=== PATIENT | female | born 1955 | race African-American/Black ===

== ENCOUNTER 2016-05-27 13:18 | Emergency (ER) | payer SELFPAY ==
[~2016-05-27] VITALS: Ht 162.6 cm; Wt 70.3 kg
[~2016-05-27 13:18] MED LIST: AML5T PO; ASPI-231 PO; CARV6.2551 PO; ENAL20TA70 PO; FERR325T PO; METF-312 PO; SIMV10TA73 PO
[2016-05-27 13:36] VITALS: BP 122/68
== END 2016-05-27 14:26 | disposition home or self-care (01) ==
LOC: ER 13:24
DX: J20.9 Acute bronchitis, unspecified (principal); E11.9 Type 2 diabetes mellitus without complications; I10 Essential (primary) hypertension; F17.210 Nicotine dependence, cigarettes, uncomplicated
CPT/HCPCS: 71020; 82962

== ENCOUNTER 2017-12-22 19:17 | Emergency (ER) | payer SELFPAY ==
[~2017-12-22] VITALS: Ht 162.6 cm; Wt 72.6 kg
[~2017-12-22 19:17] MED LIST changes: +FERR-20 PO; -FERR325T PO; -METF-312 PO; +METF-370 PO
[2017-12-22 21:43] LABS: Albumin 3.4 g/dL (3.4-5.0); BUN/Creatinine Ratio 16.4; Calcium 9.5 mg/dL (8.5-10.1); Potassium 4.2 mmol/L (3.5-5.1)
[2017-12-22 21:45] LABS: Bilirubin, Total 0.1 mg/dL (0.2-1.0); Total Protein 7.6 g/dL (6.4-8.2)
[2017-12-22 22:38] LABS: Basophils # (auto) 0 uL; Eosinophils # (auto) 0.1 uL; Lymphocytes # (auto) 3.3 uL; Monocytes # (auto) 0.5 uL; Nucleated Red Blood Cells % 0.1 %
[2017-12-22 22:40] LABS: Basophils % (auto) 0.3 % (0.0-2.0); Eosinophils % (auto) 1.1 % (0.0-7.0); Hematocrit 41.5 % (36.0-46.0); Hemoglobin 13.2 g/dL (12.2-16.2); Lymphocytes % (auto) 48.3 % (10.0-50.0); Mean Corpuscular Hemoglobin 25.6 pg (28.0-32.0); Mean Corpuscular Hgb Conc. 31.8 g/dL (32.0-36.0); Mean Corpuscular Volume 80.5 fL (80.0-100.0); Monocytes % (auto) 6.9 % (0.0-12.0); Neutrophils % (auto) 43.4 % (37.0-80.0); Platelet Count (auto) 202 10^3/uL (140-450); Red Blood Cells 5.15 10^6/uL (4.0-5.20); Red Cell Distribution Width 14.3 % (11.8-14.3)
[2017-12-23 04:42] VITALS: BP 160/91
== END 2017-12-23 04:43 | disposition home or self-care (01) ==
LOC: ER 19:17
DX: I35.9 Nonrheumatic aortic valve disorder, unspecified (principal); E11.9 Type 2 diabetes mellitus without complications; I10 Essential (primary) hypertension; F17.210 Nicotine dependence, cigarettes, uncomplicated; Z88.0 Allergy status to penicillin
CPT/HCPCS: 36415; 70450; 80053; 85025

== ENCOUNTER 2021-07-04 05:39 | Emergency (ER) | payer OTHER ==
[~2021-07-04] VITALS: Ht 162.6 cm; Wt 67.1 kg
[~2021-07-04 05:39] MED LIST changes: -ASPI-231 PO; +ASPI1TAB20 PO; -ENAL20TA70 PO; +ENAL20TA8 PO; +SIMV10TA2 PO; -SIMV10TA73 PO
[2021-07-04] MEDS: LABETALOL HCL 5 MG/ML 4ML SYRINGE IV ONE ×2 (06:27→06:29)
[2021-07-04 06:44] LABS: Hemoglobin 11.9 g/dL (12.2-16.2); Nucleated Red Blood Cells % 0.1 %; White Blood Cell 5.8 10^3/uL (4.4-10.8)
[2021-07-04 06:45] LABS: Basophils # (auto) 0.1 10 ^3/uL (0-0.2); Basophils % (auto) 1.2 % (0.0-2.0); Eosinophils # (auto) 0 10 ^3/uL (0-0.8); Eosinophils % (auto) 0.8 % (0.0-7.0); Hematocrit 37.2 % (36.0-46.0); Lymphocytes # (auto) 2.1 10 ^3/uL (0.4-5.4); Lymphocytes % (auto) 36.1 % (10.0-50.0); Mean Corpuscular Hemoglobin 25.8 pg (28.0-32.0); Mean Corpuscular Hgb Conc. 32.1 g/dL (32.0-36.0); Mean Corpuscular Volume 80.4 fL (80.0-100.0); Monocytes # (auto) 0.5 10 ^3/uL (0-1.3); Monocytes % (auto) 7.9 % (0.0-12.0); Neutrophils # (auto) 3.2 10 ^3/uL (1.6-8.6); Red Blood Cells 4.63 10^6/uL (4.0-5.20); Red Cell Distribution Width 15.2 % (11.8-14.3)
[2021-07-04 06:55] LABS: Albumin 3.3 g/dL (3.4-5.0); BUN/Creatinine Ratio 16.1; Magnesium 2.3 mg/dL (1.6-2.6); Potassium 4.2 mmol/L (3.5-5.1)
[2021-07-04 07:00] LABS: Bilirubin, Total 0.4 mg/dL (0.2-1.0); Total Protein 7.1 g/dL (6.4-8.2)
[2021-07-04] MEDS ORDERED: LACTATED RINGER'S 1,000 ML IV ONE (09:45)
[2021-07-04] MEDS ORDERED: FUROSEMIDE 20 MG TAB PO ONE (12:00)
[2021-07-04] MEDS ORDERED: ASPirin 81 mg TAB PO ONE (13:15)
[2021-07-04] MEDS ORDERED: MORPHINE SULFATE INJECTION 2 MG/ML SYRG IV ONE (13:15)
[2021-07-04] MEDS ORDERED: MORPHINE SULFATE 4 MG/ML SYR/VIAL IV ONE (13:15)
[2021-07-04] MEDS ORDERED: NITROGLYCERIN 0.4 MG SL TAB SL ONE (13:15)
[2021-07-04] MEDS ORDERED: MORPHINE SULFATE INJECTION 2 MG/ML SYRG IV PRN (13:15)
[2021-07-04] MEDS ORDERED: ONDANSETRON HCL 4 MG/2 ML VIAL IV ONE (13:15)
[2021-07-04] MEDS ORDERED: FURO1TAB33 GT (14:50)
[2021-07-04 20:40] VITALS: BP 143/76
== END 2021-07-04 20:52 | disposition home or self-care (01) ==
LOC: ER 05:39
DX: R07.89 Other chest pain (principal); E11.9 Type 2 diabetes mellitus without complications; I10 Essential (primary) hypertension; F17.200 Nicotine dependence, unspecified, uncomplicated; Z20.822 Contact with and (suspected) exposure to COVID-19
CPT/HCPCS: 36415; 71045; 71275; 80053; 83735; 83880; 84484; 85025; 85379; 87426; 93005; 96361; 96374; 99285; J2270; J2405; J3490

== ENCOUNTER 2021-08-09 08:11 | Emergency (ER) | payer OTHER ==
[~2021-08-09] VITALS: Ht 172.7 cm; Wt 77.1 kg
[~2021-08-09 08:11] MED LIST changes: +FURO1TAB33 GT
[2021-08-09] MEDS ORDERED: NITROGLYCERIN 0.4 MG SL TAB SL ONE ×3 (08:15→08:45)
[2021-08-09] MEDS ORDERED: FUROSEMIDE 40 MG/4 ML VIAL IV ONE (08:45)
[2021-08-09 08:52] LABS: Mean Corpuscular Hgb Conc. 31.1 g/dL (32.0-36.0)
[2021-08-09 08:54] LABS: Hematocrit 37.5 % (36.0-46.0); Hemoglobin 11.6 g/dL (12.2-16.2); Mean Corpuscular Hemoglobin 25.7 pg (28.0-32.0); Mean Corpuscular Volume 82.7 fL (80.0-100.0); Red Blood Cells 4.53 10^6/uL (4.0-5.20); Red Cell Distribution Width 15.5 % (11.8-14.3); White Blood Cell 6.5 10^3/uL (4.4-10.8)
[2021-08-09 08:58] LABS: Band Neutrophils % (manual) 0; Basophils % (manual) 0 (0.0-2.0); Blast Cells 0; Metamyelocytes % 0; Myelocytes % 0; Promyelocytes % 0; Reactive Lymphocytes 0
[2021-08-09 09:00] LABS: Albumin 3.1 g/dL (3.4-5.0); Calcium 8.4 mg/dL (8.5-10.1); Magnesium 1.9 mg/dL (1.6-2.6); Potassium 4.6 mmol/L (3.5-5.1)
[2021-08-09 09:04] LABS: BUN/Creatinine Ratio 12.2; Bilirubin, Total 0.4 mg/dL (0.2-1.0); Total Protein 6.8 g/dL (6.4-8.2)
[2021-08-09 09:17] LABS: Eosinophils % (manual) 1 (0-7); Lymphocytes % (manual) 58 (10.0-50.0); Monocytes % (manual) 5 (0-12)
[2021-08-09 09:28] VITALS: BP 157/87
[2021-08-09 09:41] LABS: Urine Bacteria NONE SEEN /hpf (None Seen); Urine Blood Negative /uL (Negative); Urine Specific Gravity 1.007 (1.001-1.035); Urine WBC 3 /hpf (0 - 5)
[2021-08-09] MEDS ORDERED: FUROSEMIDE 20 MG/2 ML VIAL IV ONE (09:45)
[2021-08-09] MEDS ORDERED: FURO1TAB33 PO (10:16)
== END 2021-08-09 11:26 | disposition home or self-care (01) ==
LOC: EDBD 08:11 → ER 08:11
DX: J81.0 Acute pulmonary edema (principal); E11.9 Type 2 diabetes mellitus without complications; E78.5 Hyperlipidemia, unspecified; I10 Essential (primary) hypertension; F17.200 Nicotine dependence, unspecified, uncomplicated; Z88.0 Allergy status to penicillin; Z20.822 Contact with and (suspected) exposure to COVID-19
CPT/HCPCS: 36415; 36600; 71045; 80053; 81001; 82805; 83735; 83880; 84484; 85007; 85027; 87426; 93005; 94660; 96374; 96376; 99285; J1940

== ENCOUNTER 2021-10-11 16:32 | Emergency (ER) | payer OTHER ==
[~2021-10-11] VITALS: Ht 162.6 cm; Wt 69.4 kg
[~2021-10-11 16:32] MED LIST changes: +FURO1TAB33 PO
[2021-10-11 16:52] VITALS: BP 178/95
[2021-10-11] MEDS ORDERED: cefTRIAXone SOD 1,000 MG VL IM ONE (17:30)
[2021-10-11] MEDS ORDERED: AZIT250T8 PO (17:37)
[2021-10-11] MEDS ORDERED: PROM1SOL4 PO (17:37)
[2021-10-11] MEDS ORDERED: LIDOCAINE 1% HCL (LOCAL ANESTH.) INJ 20ML MDV ONE (17:40)
[2021-10-11] MEDS ORDERED: LIDOCAINE 1% HCL (LOCAL ANESTH.) INJ 20ML MDV IJ ONE (17:45)
== END 2021-10-11 17:47 | disposition home or self-care (01) ==
LOC: ER 16:32
DX: J03.90 Acute tonsillitis, unspecified (principal); E11.9 Type 2 diabetes mellitus without complications; E78.5 Hyperlipidemia, unspecified; I10 Essential (primary) hypertension; F17.210 Nicotine dependence, cigarettes, uncomplicated; Z88.0 Allergy status to penicillin
CPT/HCPCS: 71045; 96372; 99283; J0696; J2001

== ENCOUNTER 2021-10-16 18:39 | Emergency (ER) | payer OTHER ==
[~2021-10-16] VITALS: Ht 162.6 cm; Wt 72.6 kg
[~2021-10-16 18:39] MED LIST changes: +AZIT250T8 PO; +PROM1SOL4 PO
[2021-10-16 20:05] LABS: Basophils # (auto) 0 10 ^3/uL (0-0.2); Basophils % (auto) 0.5 % (0.0-2.0); Eosinophils # (auto) 0 10 ^3/uL (0-0.8); Eosinophils % (auto) 0.4 % (0.0-7.0); Hematocrit 37.4 % (36.0-46.0); Hemoglobin 11.7 g/dL (12.2-16.2); Lymphocytes # (auto) 3.1 10 ^3/uL (0.4-5.4); Mean Corpuscular Hemoglobin 25.3 pg (28.0-32.0); Mean Corpuscular Hgb Conc. 31.3 g/dL (32.0-36.0); Mean Corpuscular Volume 80.6 fL (80.0-100.0); Monocytes # (auto) 0.6 10 ^3/uL (0-1.3); Monocytes % (auto) 10.4 % (0.0-12.0); Neutrophils # (auto) 1.9 10 ^3/uL (1.6-8.6); Neutrophils % (auto) 33.7 % (37.0-80.0); Nucleated Red Blood Cells % 0.2 %; Red Blood Cells 4.64 10^6/uL (4.0-5.20); Red Cell Distribution Width 14.8 % (11.8-14.3); White Blood Cell 5.6 10^3/uL (4.4-10.8)
[2021-10-16 20:27] LABS: Albumin 3.3 g/dL (3.4-5.0); Calcium 8.9 mg/dL (8.5-10.1); Magnesium 2.3 mg/dL (1.6-2.6); Potassium 3.9 mmol/L (3.5-5.1)
[2021-10-16 20:31] LABS: Bilirubin, Total 0.3 mg/dL (0.2-1.0); Total Protein 7.4 g/dL (6.4-8.2)
[2021-10-17 00:26] LABS: Urine Bacteria NONE SEEN /hpf (None Seen); Urine Blood Negative /uL (Negative); Urine Specific Gravity 1.027 (1.001-1.035); Urine WBC 4 /hpf (0 - 5)
[2021-10-17] MEDS ORDERED: CARVEDILOL 3.125 MG TAB PO ONE (05:00)
[2021-10-17] MEDS ORDERED: ZINC220C10 PO (06:04)
[2021-10-17] MEDS ORDERED: ASCO500T11 PO (06:04)
[2021-10-17 06:37] VITALS: BP 146/64
== END 2021-10-17 07:05 | disposition home or self-care (01) ==
LOC: ER 18:39
DX: U07.1 COVID-19 (principal); R07.89 Other chest pain
CPT/HCPCS: 36415; 71045; 80053; 81001; 83735; 83880; 84484; 85025; 93005

== ENCOUNTER 2021-11-13 09:41 | Emergency (ER) | payer OTHER ==
[~2021-11-13] VITALS: Ht 162.6 cm; Wt 72.7 kg
[~2021-11-13 09:41] MED LIST changes: +ASCO500T11 PO; +ZINC220C10 PO
[2021-11-13] MEDS ORDERED: MECL25CH38 PO (10:34)
[2021-11-13 11:23] LABS: Albumin 3.5 g/dL (3.4-5.0); Basophils # (auto) 0.1 10 ^3/uL (0-0.2); Basophils % (auto) 0.7 % (0.0-2.0); Calcium 9.3 mg/dL (8.5-10.1); Eosinophils # (auto) 0.1 10 ^3/uL (0-0.8); Hematocrit 33.9 % (36.0-46.0); Hemoglobin 10.6 g/dL (12.2-16.2); Lymphocytes # (auto) 2.5 10 ^3/uL (0.4-5.4); Lymphocytes % (auto) 29.6 % (10.0-50.0); Mean Corpuscular Hemoglobin 25.4 pg (28.0-32.0); Mean Corpuscular Hgb Conc. 31.3 g/dL (32.0-36.0); Mean Corpuscular Volume 81.1 fL (80.0-100.0); Monocytes # (auto) 0.4 10 ^3/uL (0-1.3); Monocytes % (auto) 5.3 % (0.0-12.0); Neutrophils # (auto) 5.3 10 ^3/uL (1.6-8.6); Neutrophils % (auto) 63.4 % (37.0-80.0); Nucleated Red Blood Cells % 0.1 %; Potassium 4.2 mmol/L (3.5-5.1); Red Blood Cells 4.18 10^6/uL (4.0-5.20); Red Cell Distribution Width 14.9 % (11.8-14.3); White Blood Cell 8.3 10^3/uL (4.4-10.8)
[2021-11-13 11:26] LABS: BUN/Creatinine Ratio 13.9; Bilirubin, Total 0.3 mg/dL (0.2-1.0); Total Protein 7.6 g/dL (6.4-8.2)
[2021-11-13 11:28] LABS: Urine Bacteria FEW /hpf (None Seen); Urine Blood Negative /uL (Negative); Urine Mucus FEW (None Seen); Urine Specific Gravity 1.011 (1.001-1.035); Urine WBC 6 /hpf (0 - 5)
[2021-11-13] MEDS ORDERED: NITR-87 PO (12:57)
[2021-11-13 13:22] VITALS: BP 174/72
== END 2021-11-13 13:29 | disposition home or self-care (01) ==
LOC: ER 09:41
DX: R42 Dizziness and giddiness (principal); I10 Essential (primary) hypertension; E11.9 Type 2 diabetes mellitus without complications; E78.5 Hyperlipidemia, unspecified; F17.210 Nicotine dependence, cigarettes, uncomplicated; Z79.82 Long term (current) use of aspirin; Z79.899 Other long term (current) drug therapy; Z88.0 Allergy status to penicillin; Z91.048 Other nonmedicinal substance allergy status
CPT/HCPCS: 36415; 70450; 80053; 81001; 84484; 85025; 93005

== ENCOUNTER 2022-05-31 21:31 | Emergency (ER) | payer OTHER ==
[~2022-05-31] VITALS: Ht 162.6 cm; Wt 69.1 kg
[~2022-05-31 21:31] MED LIST changes: +MECL25CH38 PO; +NITR-87 PO
[2022-05-31 21:35] VITALS: BP 150/93
[2022-05-31] MEDS ORDERED: FURO1TAB33 PO (22:00)
== END 2022-06-01 00:36 | disposition home or self-care (01) ==
LOC: ER 21:31
DX: I10 Essential (primary) hypertension (principal); Z76.0 Encounter for issue of repeat prescription

== ENCOUNTER 2022-08-19 19:37 | Emergency (ER) | payer OTHER ==
[~2022-08-19] VITALS: Ht 162.6 cm; Wt 65.0 kg
[2022-08-19 21:27] LABS: Basophils # (auto) 0 10 ^3/uL (0-0.2); Basophils % (auto) 0.7 % (0.0-2.0); Eosinophils # (auto) 0.1 10 ^3/uL (0-0.8); Eosinophils % (auto) 1.4 % (0.0-7.0); Hematocrit 37.2 % (36.0-46.0); Hemoglobin 12.1 g/dL (12.2-16.2); Lymphocytes % (auto) 46.8 % (10.0-50.0); Mean Corpuscular Hemoglobin 26.1 pg (28.0-32.0); Mean Corpuscular Hgb Conc. 32.6 g/dL (32.0-36.0); Mean Corpuscular Volume 79.9 fL (80.0-100.0); Monocytes # (auto) 0.5 10 ^3/uL (0-1.3); Monocytes % (auto) 8.1 % (0.0-12.0); Neutrophils # (auto) 2.8 10 ^3/uL (1.6-8.6); Nucleated Red Blood Cells % 0.1 %; Red Blood Cells 4.66 10^6/uL (4.0-5.20); White Blood Cell 6.5 10^3/uL (4.4-10.8)
[2022-08-19 22:01] LABS: INR 0.93 (0.9-1.15); Partial Thromboplastin Time 27.8 sec (24.6-33.4)
[2022-08-19 22:03] LABS: Albumin 3.4 g/dL (3.4-5.0); Calcium 9.3 mg/dL (8.5-10.1); Magnesium 2.4 mg/dL (1.6-2.6); Potassium 4.1 mmol/L (3.5-5.1)
[2022-08-19 22:08] LABS: BUN/Creatinine Ratio 18.4 (10.0-20.0); Bilirubin, Total 0.4 mg/dL (0.2-1.0); Total Protein 7.4 g/dL (6.4-8.2)
[2022-08-20] MEDS ORDERED: ASPirin 81 mg TAB PO ONE (06:30)
[2022-08-20 16:30] VITALS: BP 142/70
== END 2022-08-20 16:53 | disposition admitted as inpatient to this hospital (09) ==
LOC: ER 19:37
DX: I63.81 Other cerebral infarction due to occlusion or stenosis of small artery (principal); R20.0 Anesthesia of skin; E78.5 Hyperlipidemia, unspecified; I11.0 Hypertensive heart disease with heart failure; I50.89 Other heart failure; E11.9 Type 2 diabetes mellitus without complications; Z86.73 Personal history of transient ischemic attack (TIA), and cerebral infarction without residual deficits; Z88.0 Allergy status to penicillin; Z79.899 Other long term (current) drug therapy; Z79.82 Long term (current) use of aspirin; Z87.891 Personal history of nicotine dependence
CPT/HCPCS: 36415; 70450; 70551; 80053; 83735; 83880; 84484; 85025; 85610; 85730; 93005; 99291

== ENCOUNTER 2023-06-14 01:49 | Emergency (ER) | payer OTHER ==
[~2023-06-14] VITALS: Ht 162.6 cm; Wt 80.9 kg
[~2023-06-14 01:49] MED LIST changes: +AZIT-81 PO; -AZIT250T8 PO; +ENAL1TAB48 PO; -ENAL20TA8 PO; -FERR-20 PO; +FERR325T24 PO; +SIMV-268 PO; -SIMV10TA2 PO
[2023-06-14] MEDS ORDERED: BENZ200C64 PO (02:54)
[2023-06-14] MEDS ORDERED: MONT10TA23 PO (02:54)
[2023-06-14] MEDS ORDERED: AZITTAB PO (02:54)
[2023-06-14] MEDS ORDERED: ALBU108A5 IN (02:54)
[2023-06-14] MEDS: IPRATROPIUM BROM 0.5 MG/2.5ML INH SOL NEB ONE (03:11)
[2023-06-14] MEDS: ALBUTEROL SULF 2.5 MG/0.5ML(0.5%) NEB SOLN NEB ONE (03:11)
[2023-06-14] MEDS: guaiFENesin-CODEINE Liq 5 ML UD PO ONE (04:10)
[2023-06-14 05:21] VITALS: BP 137/82; PULSE 79; RESP 18; TEMP 98; O2SAT 96
== END 2023-06-14 05:27 | disposition home or self-care (01) ==
LOC: ER 01:49
DX: J20.9 Acute bronchitis, unspecified (principal); I11.0 Hypertensive heart disease with heart failure; I50.9 Heart failure, unspecified; E11.9 Type 2 diabetes mellitus without complications; E78.5 Hyperlipidemia, unspecified; Z79.899 Other long term (current) drug therapy
CPT/HCPCS: 94640; 99283; J7644

== ENCOUNTER 2023-07-01 01:19 | Inpatient (IN) | payer OTHER ==
[~2023-07-01] VITALS: Ht 162.6 cm; Wt 80.3 kg
[~2023-07-01 01:19] MED LIST changes: +ALBU108A5 IN; +AZITTAB PO; +BENZ200C64 PO; +MONT10TA23 PO
[2023-07-01 02:27] LABS: Eosinophils # (auto) 0.1 10 ^3/uL (0-0.8); Hematocrit 35.4 % (36.0-46.0); Hemoglobin 10.9 g/dL (12.2-16.2); Lymphocytes # (auto) 2.4 10 ^3/uL (0.4-5.4); Mean Corpuscular Hgb Conc. 30.7 g/dL (32.0-36.0); Monocytes # (auto) 0.6 10 ^3/uL (0-1.3); White Blood Cell 6.6 10^3/uL (4.4-10.8)
[2023-07-01 02:29] LABS: Basophils # (auto) 0.1 10 ^3/uL (0-0.2); Basophils % (auto) 0.9 % (0.0-2.0); Mean Corpuscular Hemoglobin 24.3 pg (28.0-32.0); Mean Corpuscular Volume 79.2 fL (80.0-100.0); Monocytes % (auto) 8.6 % (0.0-12.0); Neutrophils # (auto) 3.5 10 ^3/uL (1.6-8.6); Neutrophils % (auto) 53.5 % (37.0-80.0); Nucleated Red Blood Cells % 0.1 %; Red Blood Cells 4.47 10^6/uL (4.0-5.20); Red Cell Distribution Width 15.3 % (11.8-14.3)
[2023-07-01 02:33] VITALS: PULSE 107; O2SAT 94
[2023-07-01 02:45] LABS: Alanine Aminotransferase 15 U/L (7-40); Albumin 4.1 g/dL (3.2-4.8); Alkaline Phosphatase 95 U/L (46-116); Anion Gap 5 (5-15); Aspartate Aminotransferase 21 U/L (13-40); BUN/Creatinine Ratio 12.8 (10.0-20.0); Blood Urea Nitrogen 15 mg/dL (9-23); Calcium 9.4 mg/dL (8.7-10.4); Carbon Dioxide 24 mmol/L (20-30); Chloride 114 mmol/L (98-107); Glucose 159 mg/dL (74-106); Potassium 3.6 mmol/L (3.5-5.1); Sodium 143 mmol/L (136-145)
[2023-07-01 02:46] LABS: Bilirubin, Total 0.3 mg/dL (0.2-1.0)
[2023-07-01 02:48] LABS: INR 0.94 (0.9-1.15); Partial Thromboplastin Time 28.8 SEC (24.5-34.5); Prothrombin Time 9.9 sec (9.3-11.8)
[2023-07-01] MEDS: AMIODARONE BOLUS KIT 100 ML IV ONE (03:02)
[2023-07-01] MEDS: AMIODARONE 450mg/250ml AE 250 ML IV SCH ×2 (03:19→08:35)
[2023-07-01] MEDS ORDERED: NITROGLYCERIN 0.4 MG SL TAB SL PRN ×2 (04:00→04:15)
[2023-07-01] MEDS ORDERED: MORPHINE SULFATE INJ 2 MG/ml SYRG IV PRN ×2 (04:00→04:15)
[2023-07-01] MEDS ORDERED: ONDANSETRON HCL 4 MG/2 ML VIAL IV PRN (04:00)
[2023-07-01] MEDS ORDERED: HYDROcodone-ACET 5/325MG TAB PO PRN (04:00)
[2023-07-01] MEDS ORDERED: DEXTROSE (50%) 50ML SYRG IV PRN (04:15)
[2023-07-01] MEDS: hydrALAZINE HCL 20 MG/ML VL IV PRN (04:29)
[2023-07-01 05:04] LABS: Triglycerides 99 mg/dL (< 150)
[2023-07-01 05:05] LABS: LDL Cholesterol 120 mg/dL (< 100)
[2023-07-01 05:06] LABS: Cholesterol 176 mg/dL (< 200); HDL Cholesterol 43 mg/dL (40-59)
[2023-07-01] MEDS: LORazepam 2MG/ML-1ML VIAL ONE (05:07)
[2023-07-01] MEDS: ENOXAPARIN SOD 40 MG/0.4 ML SYRINGE SC SCH (05:14)
[2023-07-01] MEDS: LORazepam 2MG/ML-1ML VIAL IV ONE (05:15)
[2023-07-01] MEDS ORDERED: SACU1TAB PO (05:29)
[2023-07-01] MEDS ORDERED: POTA8TAB38 PO (05:29)
[2023-07-01] MEDS ORDERED: SIMV20TA20 PO (05:29)
[2023-07-01] MEDS: LISINOPRIL 20 MG TAB PO SCH (05:40)
[2023-07-01] MEDS: IOHEXOL 350 MG/ML 100ML IJ ONE (05:44)
[2023-07-01] MEDS: ACCU-CHEK COMFORT CURVE STRIP VI SCH (05:57)
[2023-07-01] MEDS: InsuLIN REG 1unit/0.01ml Soln (100units/ml) SC SCH (06:06)
[2023-07-01] MEDS ORDERED: IPRATROPIUM BROM 0.5 MG/2.5ML INH SOL NEB PRN (06:15)
[2023-07-01 07:28] VITALS: O2SAT 100
[2023-07-01] MEDS: amLODIPine BESYLATE 5 MG TAB PO SCH (10:00)
[2023-07-01] MEDS ORDERED: ENOXAPARIN SOD 40 MG/0.4 ML SYRINGE SC SCH (10:00)
[2023-07-01] MEDS: ASPirin 81 mg TAB PO SCH (10:11)
[2023-07-01] MEDS: PANTOPRAZOLE 40 MG/10 ML VIAL INJ IV SCH (10:11)
[2023-07-01] MEDS: ACETAMINOPHEN 325 MG TAB PO PRN (17:47)
[2023-07-01 18:18] LABS: Amphetamine Screen, Urine Neg (NEGATIVE); Benzodiazephine Screen, Urine Neg (NEGATIVE)
[2023-07-01 18:19] LABS: Barbiturate Scree,Urine Neg (NEGATIVE); Cannabinoid Screen, Urine Neg (NEGATIVE); Cocaine Screen, Urine Neg (NEGATIVE); Opiate Scree,Urine Neg (NEGATIVE); Phencyclidine Screen, Urine Neg (NEGATIVE)
[2023-07-01 18:23] LABS: Urine Bacteria FEW /hpf (None Seen); Urine Blood Negative /uL (Negative); Urine Clarity Clear (Clear); Urine Color Yellow (Yellow); Urine Protein, UAD Negative (Negative); Urine Specific Gravity 1.036 (1.001-1.035); Urine Urobilinogen Normal (Negative); Urine WBC 13 /hpf (0 - 5); Urine pH 5.5 (5.0-8.0)
[2023-07-01 19:48] VITALS: PULSE 75; RESP 15; O2SAT 100
[2023-07-01] MEDS: ATORVASTATIN 20 MG TAB PO SCH (23:22)
[2023-07-01 23:33] VITALS: BP 134/68; PULSE 77; RESP 19; TEMP 98; O2SAT 97
[2023-07-02] VITALS (7 sets, daily range): BP systolic 115–189; BP diastolic 55–83; PULSE 67–98; RESP 16–20; TEMP 97.7–98.3; O2SAT 92–99
[2023-07-02 06:18] LABS: Basophils # (auto) 0 10 ^3/uL (0-0.2); Basophils % (auto) 0.5 % (0.0-2.0); Eosinophils # (auto) 0.1 10 ^3/uL (0-0.8); Eosinophils % (auto) 1.4 % (0.0-7.0); Hematocrit 32.3 % (36.0-46.0); Hemoglobin 10.1 g/dL (12.2-16.2); Lymphocytes # (auto) 1.6 10 ^3/uL (0.4-5.4); Lymphocytes % (auto) 33.6 % (10.0-50.0); Mean Corpuscular Hgb Conc. 31.3 g/dL (32.0-36.0); Mean Corpuscular Volume 79.8 fL (80.0-100.0); Monocytes # (auto) 0.5 10 ^3/uL (0-1.3); Monocytes % (auto) 10.8 % (0.0-12.0); Neutrophils # (auto) 2.6 10 ^3/uL (1.6-8.6); Neutrophils % (auto) 53.7 % (37.0-80.0); Red Blood Cells 4.05 10^6/uL (4.0-5.20); Red Cell Distribution Width 14.8 % (11.8-14.3); White Blood Cell 4.8 10^3/uL (4.4-10.8)
[2023-07-02 06:28] LABS: Calcium 9.2 mg/dL (8.5-10.1); Chloride 111 mmol/L (98-107); Potassium 3.6 mmol/L (3.5-5.1); Sodium 141 mmol/L (136-145)
[2023-07-02 06:29] LABS: Anion Gap 6 (5-15); Carbon Dioxide 24 mmol/L (20-30)
[2023-07-02 06:34] LABS: BUN/Creatinine Ratio 10.1 (10.0-20.0); Blood Urea Nitrogen 11 mg/dL (9-23); Glucose 141 mg/dL (74-106)
[2023-07-02] MEDS: levoFLOXacin 500MG 100 ML IV ONE (16:33)
[2023-07-02] MEDS ORDERED: PANT40TA57 PO (17:14)
[2023-07-02] MEDS ORDERED: CIPR500T4 PO (17:14)
[2023-07-02] MEDS ORDERED: APIXABAN 5 MG TAB PO SCH (22:00)
[2023-07-02] MEDS ORDERED: CARVEDILOL 3.125 MG TAB PO SCH (22:00)
[2023-07-03] MEDS ORDERED: FUROSEMIDE 40 MG TAB PO SCH (10:00)
== END 2023-07-02 20:30 | disposition home or self-care (01) | DRG 292 ==
LOC: ER 01:19 → TELE 04:04 → TELE-CENTR 04:06 → TELE 04:06 → TELE-CENTR 22:05
PROVIDERS: ADMIT Nurse Practitioner Family; ATTEND Nurse Practitioner Family
DX: I11.0 Hypertensive heart disease with heart failure (principal); I24.89 Other forms of acute ischemic heart disease; N39.0 Urinary tract infection, site not specified; J40 Bronchitis, not specified as acute or chronic; I50.32 Chronic diastolic (congestive) heart failure; I5A Non-ischemic myocardial injury (non-traumatic); K21.9 Gastro-esophageal reflux disease without esophagitis; R00.8 Other abnormalities of heart beat; I49.8 Other specified cardiac arrhythmias; E78.5 Hyperlipidemia, unspecified; E11.9 Type 2 diabetes mellitus without complications; Z88.0 Allergy status to penicillin; Z87.891 Personal history of nicotine dependence; Z79.84 Long term (current) use of oral hypoglycemic drugs; I49.9 Cardiac arrhythmia, unspecified
CPT/HCPCS: 36415; 36600; 71045; 71275; 80048; 80053; 80061; 80307; 81001; 82805; 82962; 83735; 83880; 84443; 84484; 85025; 85379; 85610; 85730; 93005; 93306; 97163; C9113; G0378; J1815; J1956

== ENCOUNTER 2023-08-08 04:40 | Inpatient (IN) | payer OTHER ==
[~2023-08-08] VITALS: Ht 162.6 cm; Wt 76.5 kg
[~2023-08-08 04:40] MED LIST changes: -AML5T PO; -ASCO500T11 PO; -AZIT-81 PO; -AZITTAB PO; -BENZ200C64 PO; +CIPR500T4 PO; -FURO1TAB33 PO; -MECL25CH38 PO; -MONT10TA23 PO; -NITR-87 PO; +PANT40TA57 PO; +POTA8TAB38 PO; -PROM1SOL4 PO; +SACU1TAB PO; -ZINC220C10 PO
[2023-08-08] MEDS ORDERED: BUDESONIDE (INHALATION) 0.5 MG/2 ML NEB NEB ONE (05:15)
[2023-08-08 05:25] LABS: Basophils # (auto) 0 10 ^3/uL (0-0.2); Hemoglobin 11.7 g/dL (12.2-16.2); Mean Corpuscular Hemoglobin 24.6 pg (28.0-32.0); Monocytes # (auto) 0.5 10 ^3/uL (0-1.3)
[2023-08-08 05:28] LABS: Basophils % (auto) 0.4 % (0.0-2.0); Eosinophils # (auto) 0.1 10 ^3/uL (0-0.8); Eosinophils % (auto) 0.9 % (0.0-7.0); Hematocrit 37.9 % (36.0-46.0); Lymphocytes # (auto) 3.6 10 ^3/uL (0.4-5.4); Lymphocytes % (auto) 52.3 % (10.0-50.0); Mean Corpuscular Hgb Conc. 30.8 g/dL (32.0-36.0); Mean Corpuscular Volume 79.8 fL (80.0-100.0); Monocytes % (auto) 6.7 % (0.0-12.0); Neutrophils # (auto) 2.7 10 ^3/uL (1.6-8.6); Neutrophils % (auto) 39.7 % (37.0-80.0); Nucleated Red Blood Cells % 0.3 %; Red Blood Cells 4.75 10^6/uL (4.0-5.20); Red Cell Distribution Width 15.1 % (11.8-14.3); White Blood Cell 6.8 10^3/uL (4.4-10.8)
[2023-08-08] MEDS: ALBUTEROL SULF 2.5 MG/0.5ML(0.5%) NEB SOLN NEB ONE (05:28)
[2023-08-08] MEDS: IPRATROPIUM BROM 0.5 MG/2.5ML INH SOL NEB ONE (05:28)
[2023-08-08 05:36] LABS: Alanine Aminotransferase 14 U/L (7-40); Albumin 4.1 g/dL (3.2-4.8); Alkaline Phosphatase 93 U/L (46-116); Anion Gap 6 (5-15); Aspartate Aminotransferase 15 U/L (13-40); BUN/Creatinine Ratio 15.3 (10.0-20.0); Blood Urea Nitrogen 19 mg/dL (9-23); Calcium 9.5 mg/dL (8.7-10.4); Carbon Dioxide 24 mmol/L (20-30); Chloride 111 mmol/L (98-107); Glucose 190 mg/dL (74-106); Magnesium 2.1 mg/dL (1.6-2.6); Potassium 3.9 mmol/L (3.5-5.1); Sodium 141 mmol/L (136-145)
[2023-08-08 05:37] LABS: Bilirubin, Total 0.4 mg/dL (0.2-1.0)
[2023-08-08] MEDS: ASPirin 81 mg TAB PO ONE (06:17)
[2023-08-08 08:30] VITALS: PULSE 87; RESP 22; O2SAT 97
[2023-08-08] MEDS: FUROSEMIDE 20 MG/2 ML VIAL IV ONE (09:56)
[2023-08-08] MEDS: ENOXAPARIN SOD 100 MG/1 ML SYRINGE SC ONE (09:56)
[2023-08-08 11:36] LABS: Urine Bacteria FEW /hpf (None Seen); Urine Blood Negative /uL (Negative); Urine Clarity Clear (Clear); Urine Color Light-Yellow (Yellow); Urine Hyaline Cast FEW /lpf (0 - 2); Urine Protein, UAD TRACE (Negative); Urine Urobilinogen Normal (Negative); Urine WBC 1 /hpf (0 - 5)
[2023-08-08] MEDS ORDERED: MORPHINE SULFATE INJ 2 MG/ml SYRG IV PRN ×2 (14:15)
[2023-08-08] MEDS ORDERED: NITROGLYCERIN 0.4 MG SL TAB SL PRN (14:15)
[2023-08-08] MEDS ORDERED: HYDROcodone-ACET 5/325MG TAB PO PRN (14:15)
[2023-08-08] MEDS ORDERED: ONDANSETRON HCL 4 MG/2 ML VIAL IV PRN (14:15)
[2023-08-08] MEDS: FUROSEMIDE 40 MG/4 ML VIAL IV SCH (17:58)
[2023-08-08] MEDS: ATORVASTATIN 20 MG TAB PO SCH (18:01)
[2023-08-08] MEDS ORDERED: hydrALAZINE HCL 20 MG/ML VL IV PRN (19:00)
[2023-08-08] MEDS: FERROUS SULFATE 325mg EC TAB PO SCH (22:39)
[2023-08-08] MEDS: ENALAPRIL MALEATE 10 MG TAB PO SCH (22:42)
[2023-08-08] MEDS: CARVEDILOL 3.125 MG TAB PO SCH (22:42)
[2023-08-08] MEDS: SACUBITRIL-VALSARTAN 24mg/26mg TAB PO SCH (22:43)
[2023-08-09 03:00] VITALS: PULSE 80; RESP 24; O2SAT 94
[2023-08-09 05:57] LABS: Basophils # (auto) 0 10 ^3/uL (0-0.2); Eosinophils # (auto) 0.1 10 ^3/uL (0-0.8); Hemoglobin 11.4 g/dL (12.2-16.2); Monocytes # (auto) 0.6 10 ^3/uL (0-1.3)
[2023-08-09 05:58] LABS: Alanine Aminotransferase 11 U/L (7-40); Albumin 3.8 g/dL (3.2-4.8); Alkaline Phosphatase 68 U/L (46-116); Anion Gap 8 (5-15); Aspartate Aminotransferase 13 U/L (13-40); BUN/Creatinine Ratio 13.4 (10.0-20.0); Bilirubin, Total 0.6 mg/dL (0.2-1.0); Blood Urea Nitrogen 18 mg/dL (9-23); Calcium 9.7 mg/dL (8.7-10.4); Carbon Dioxide 26 mmol/L (20-30); Chloride 107 mmol/L (98-107); Glucose 136 mg/dL (74-106); Potassium 3.9 mmol/L (3.5-5.1); Sodium 141 mmol/L (136-145); Total Protein 6.6 g/dL (5.7-8.2)
[2023-08-09 05:59] LABS: Basophils % (auto) 0.5 % (0.0-2.0); Hematocrit 36.3 % (36.0-46.0); Lymphocytes # (auto) 2.9 10 ^3/uL (0.4-5.4); Lymphocytes % (auto) 45.3 % (10.0-50.0); Mean Corpuscular Hemoglobin 24.8 pg (28.0-32.0); Mean Corpuscular Hgb Conc. 31.4 g/dL (32.0-36.0); Mean Corpuscular Volume 78.7 fL (80.0-100.0); Monocytes % (auto) 9.1 % (0.0-12.0); Neutrophils # (auto) 2.8 10 ^3/uL (1.6-8.6); Neutrophils % (auto) 44.1 % (37.0-80.0); Red Blood Cells 4.61 10^6/uL (4.0-5.20); Red Cell Distribution Width 14.5 % (11.8-14.3); White Blood Cell 6.4 10^3/uL (4.4-10.8)
[2023-08-09 09:09] VITALS: PULSE 88; RESP 18; O2SAT 97
[2023-08-09 09:39] LABS: INR 0.96 (0.9-1.15); Partial Thromboplastin Time 28.2 SEC (24.5-34.5); Prothrombin Time 10.1 sec (9.3-11.8)
[2023-08-09] MEDS: PANTOPRAZOLE 40 MG TAB PO SCH (10:56)
[2023-08-09] MEDS: ASPirin-EC 81 mg tab PO SCH (10:56)
[2023-08-09] MEDS: MAGNESIUM OXIDE 400 MG TAB PO ONE (13:35)
[2023-08-09] MEDS: SODIUM CHLORIDE 0.9% 1,000 ML IV SCH (15:30)
[2023-08-09] MEDS: SODIUM CHLORIDE 0.9% 500 ML IV ONE (15:30)
[2023-08-09 22:04] VITALS: PULSE 80; RESP 22; O2SAT 97
[2023-08-09] MEDS: MAGNESIUM OXIDE 400 MG TAB PO SCH (22:26)
[2023-08-09 23:44] VITALS: BP 144/114; PULSE 77; RESP 20; TEMP 98; O2SAT 96
[2023-08-10] VITALS (8 sets, daily range): BP systolic 100–128; BP diastolic 45–80; PULSE 52–80; RESP 14–18; TEMP 36.4; O2SAT 95–100
[2023-08-10 06:39] LABS: Anion Gap 7 (5-15); Carbon Dioxide 27 mmol/L (20-30); Chloride 106 mmol/L (98-107); Potassium 3.6 mmol/L (3.5-5.1); Sodium 140 mmol/L (136-145)
[2023-08-10 06:40] LABS: Calcium 9.5 mg/dL (8.7-10.4)
[2023-08-10 06:45] LABS: BUN/Creatinine Ratio 16.4 (10.0-20.0); Blood Urea Nitrogen 23 mg/dL (9-23); Glucose 133 mg/dL (74-106)
[2023-08-10 06:46] LABS: Magnesium 2.2 mg/dL (1.6-2.6)
[2023-08-10 07:01] LABS: Basophils # (auto) 0 10 ^3/uL (0-0.2); Eosinophils # (auto) 0.1 10 ^3/uL (0-0.8); Hemoglobin 11.9 g/dL (12.2-16.2); Monocytes # (auto) 0.6 10 ^3/uL (0-1.3); Neutrophils # (auto) 2.3 10 ^3/uL (1.6-8.6); White Blood Cell 5.9 10^3/uL (4.4-10.8)
[2023-08-10 07:04] LABS: Basophils % (auto) 0.5 % (0.0-2.0); Eosinophils % (auto) 1.3 % (0.0-7.0); Hematocrit 37.7 % (36.0-46.0); Lymphocytes # (auto) 2.8 10 ^3/uL (0.4-5.4); Lymphocytes % (auto) 48.2 % (10.0-50.0); Mean Corpuscular Hemoglobin 24.7 pg (28.0-32.0); Mean Corpuscular Hgb Conc. 31.4 g/dL (32.0-36.0); Mean Corpuscular Volume 78.6 fL (80.0-100.0); Monocytes % (auto) 10.2 % (0.0-12.0); Neutrophils % (auto) 39.8 % (37.0-80.0); Red Cell Distribution Width 14.8 % (11.8-14.3)
[2023-08-10] MEDS: BUMETANIDE 2.5mg/10ml (0.25 mg/ml) INJ IV SCH (18:29)
[2023-08-10] MEDS: ACETAMINOPHEN 325 MG TAB PO PRN (18:35)
[2023-08-11] VITALS (9 sets, daily range): BP systolic 102–152; BP diastolic 52–62; PULSE 47–90; RESP 14–20; TEMP 97.3–98.3; O2SAT 94–100
[2023-08-11 06:56] LABS: Chloride 105 mmol/L (98-107); Potassium 3.8 mmol/L (3.5-5.1); Sodium 139 mmol/L (136-145)
[2023-08-11 06:57] LABS: Anion Gap 5 (5-15); Carbon Dioxide 29 mmol/L (20-30)
[2023-08-11 06:58] LABS: Calcium 9.3 mg/dL (8.7-10.4)
[2023-08-11 07:02] LABS: Glucose 141 mg/dL (74-106)
[2023-08-11 07:03] LABS: BUN/Creatinine Ratio 16.5 (10.0-20.0); Blood Urea Nitrogen 22 mg/dL (9-23); Magnesium 2.3 mg/dL (1.6-2.6)
[2023-08-11 07:04] LABS: Basophils # (auto) 0 10 ^3/uL (0-0.2); Basophils % (auto) 0.5 % (0.0-2.0); Eosinophils # (auto) 0.1 10 ^3/uL (0-0.8); Eosinophils % (auto) 2.1 % (0.0-7.0); Lymphocytes % (auto) 52.4 % (10.0-50.0); Mean Corpuscular Hemoglobin 24.4 pg (28.0-32.0); Mean Corpuscular Hgb Conc. 30.9 g/dL (32.0-36.0); Mean Corpuscular Volume 79.1 fL (80.0-100.0); Monocytes # (auto) 0.6 10 ^3/uL (0-1.3); Monocytes % (auto) 10.6 % (0.0-12.0); Neutrophils % (auto) 34.4 % (37.0-80.0); Red Blood Cells 4.93 10^6/uL (4.0-5.20); Red Cell Distribution Width 14.7 % (11.8-14.3); White Blood Cell 5.8 10^3/uL (4.4-10.8)
[2023-08-11] MEDS: HEPARIN SODIUM (PORCINE) 5000 UNITS/ML 1ML VIAL SC ONE (10:53)
[2023-08-11 15:45] LABS: Protein, Urine 13.8 mg/dL (0.0-11.9)
[2023-08-11 15:48] LABS: Creatinine, Urine 176.43 mg/dL (30.0-125.0); Urine Protein/Creatinine Ratio 0.08
[2023-08-11] MEDS: CLOPIDOGREL BISULFATE 75 MG TAB PO SCH (17:37)
[2023-08-11] MEDS: HEPARIN SODIUM (PORCINE) 5000 UNITS/ML 1ML VIAL SC SCH (17:40)
[2023-08-11] MEDS: ATORVASTATIN 20 MG TAB PO SCH (21:42)
[2023-08-12] VITALS (11 sets, daily range): BP systolic 116–148; BP diastolic 46–77; PULSE 41–86; RESP 11–20; TEMP 97.8–98.3; O2SAT 93–100
[2023-08-12 06:42] LABS: Basophils # (auto) 0 10 ^3/uL (0-0.2); Basophils % (auto) 0.7 % (0.0-2.0); Eosinophils # (auto) 0.1 10 ^3/uL (0-0.8); Eosinophils % (auto) 1.5 % (0.0-7.0); Hematocrit 36.9 % (36.0-46.0); Hemoglobin 11.5 g/dL (12.2-16.2); Lymphocytes # (auto) 2.8 10 ^3/uL (0.4-5.4); Lymphocytes % (auto) 49.4 % (10.0-50.0); Mean Corpuscular Hemoglobin 24.5 pg (28.0-32.0); Mean Corpuscular Hgb Conc. 31.1 g/dL (32.0-36.0); Mean Corpuscular Volume 78.6 fL (80.0-100.0); Monocytes # (auto) 0.6 10 ^3/uL (0-1.3); Neutrophils # (auto) 2.2 10 ^3/uL (1.6-8.6); Neutrophils % (auto) 38.4 % (37.0-80.0); Nucleated Red Blood Cells % 0.2 %; Red Cell Distribution Width 14.7 % (11.8-14.3); White Blood Cell 5.7 10^3/uL (4.4-10.8)
[2023-08-12 06:53] LABS: Chloride 107 mmol/L (98-107); Potassium 3.8 mmol/L (3.5-5.1); Sodium 140 mmol/L (136-145)
[2023-08-12 06:54] LABS: Anion Gap 6 (5-15); Calcium 9.3 mg/dL (8.7-10.4); Carbon Dioxide 27 mmol/L (20-30)
[2023-08-12 06:59] LABS: BUN/Creatinine Ratio 17.6 (10.0-20.0); Blood Urea Nitrogen 23 mg/dL (9-23); Glucose 131 mg/dL (74-106); Magnesium 2.3 mg/dL (1.6-2.6)
[2023-08-12] MEDS: IODIXANOL 320MG/ML 100ML BTL IV ONE (08:19)
[2023-08-12] MEDS: LIDOCAINE 2%HCL (LOCAL ANESTH.) INJ 10ml MDV ONE (08:19)
[2023-08-12] MEDS: HEPARIN IN NS 1000Units/500mL 1,500 ML ONE (08:19)
[2023-08-12] MEDS: ANGIOMAX 250 MG VIAL IV ONE (08:26)
[2023-08-12] MEDS: MIDAZOLAM HCL 2MG/2ML 2ml VIAL (1mg/ml) ONE (08:26)
[2023-08-12] MEDS: fentaNYL CITRATE 100 MCG/2 ML VL ONE (08:26)
[2023-08-12] MEDS: SODIUM CHL 0.9% 50 ML ONE (08:26)
[2023-08-12] MEDS: VERAPAMIL 2.5MG/ML INJ 2ML VIAL IV ONE (08:26)
[2023-08-12] MEDS: HEPARIN SODIUM (PORCINE) 5000 UNITS/ML 1ML VIAL ONE (08:27)
[2023-08-12] MEDS: ATROPINE SULF 1 MG/10ml SYR ONE (09:14)
[2023-08-12] MEDS: FUROSEMIDE 40 MG/4 ML VIAL IV ONE (11:03)
[2023-08-12] MEDS ORDERED: FUROSEMIDE 40 MG/4 ML VIAL IV ONE (17:00)
[2023-08-13 01:00] VITALS: BP 108/43; PULSE 50; RESP 19; TEMP 98.4; O2SAT 97
[2023-08-13 05:00] VITALS: BP 121/60; PULSE 59; RESP 20; TEMP 98; O2SAT 99
[2023-08-13 06:55] LABS: Basophils # (auto) 0 10 ^3/uL (0-0.2); Eosinophils # (auto) 0.1 10 ^3/uL (0-0.8); Lymphocytes # (auto) 2.7 10 ^3/uL (0.4-5.4); Lymphocytes % (auto) 52.5 % (10.0-50.0); Monocytes # (auto) 0.5 10 ^3/uL (0-1.3); Neutrophils # (auto) 1.8 10 ^3/uL (1.6-8.6); Nucleated Red Blood Cells % 0.1 %; White Blood Cell 5.2 10^3/uL (4.4-10.8)
[2023-08-13 06:57] LABS: Basophils % (auto) 0.7 % (0.0-2.0); Eosinophils % (auto) 1.8 % (0.0-7.0); Hematocrit 37.7 % (36.0-46.0); Hemoglobin 11.9 g/dL (12.2-16.2); Mean Corpuscular Hemoglobin 24.8 pg (28.0-32.0); Mean Corpuscular Hgb Conc. 31.5 g/dL (32.0-36.0); Mean Corpuscular Volume 78.8 fL (80.0-100.0); Monocytes % (auto) 10.1 % (0.0-12.0); Neutrophils % (auto) 34.9 % (37.0-80.0); Red Blood Cells 4.78 10^6/uL (4.0-5.20); Red Cell Distribution Width 14.7 % (11.8-14.3)
[2023-08-13 07:12] LABS: Calcium 9.5 mg/dL (8.7-10.4); Chloride 105 mmol/L (98-107); Potassium 3.8 mmol/L (3.5-5.1); Sodium 139 mmol/L (136-145)
[2023-08-13 07:13] LABS: Anion Gap 6 (5-15); Carbon Dioxide 28 mmol/L (20-30)
[2023-08-13 07:18] LABS: BUN/Creatinine Ratio 13.6 (10.0-20.0); Blood Urea Nitrogen 18 mg/dL (9-23); Glucose 130 mg/dL (74-106)
[2023-08-13 08:00] VITALS: PULSE 69; PULSE 81; RESP 16; O2SAT 100
[2023-08-13 08:33] VITALS: BP 113/54; PULSE 69; RESP 16; TEMP 97.9; O2SAT 100
[2023-08-13] MEDS: EMPAGLIFLOZIN 10 MG TAB PO SCH (09:37)
[2023-08-13] MEDS: CALCITRIOL 0.25 MCG CAP PO SCH (09:37)
[2023-08-13] MEDS: SPIRONOLACTONE 25 MG TAB PO SCH (09:37)
[2023-08-13 13:11] VITALS: BP 106/54; PULSE 50; RESP 18; TEMP 98.1; O2SAT 99
[2023-08-13] MEDS ORDERED: CLOP75TA70 PO (15:09)
[2023-08-13] MEDS ORDERED: SPIR25TA PO (15:09)
[2023-08-13] MEDS ORDERED: EMPA1TAB PO (15:09)
[2023-08-13] MEDS ORDERED: SACU1TAB PO (15:09)
[2023-08-13] MEDS ORDERED: ATOR20TA50 PO (15:09)
[2023-08-13 15:54] VITALS: BP 106/54; PULSE 87; RESP 18; TEMP 98.1; O2SAT 99
== END 2023-08-13 16:25 | disposition home or self-care (01) | DRG 321 ==
LOC: ER 04:40 → TELE 14:11 → TELE-EAST 23:17
PROVIDERS: ADMIT Internal Medicine; ATTEND Internal Medicine
PROC: 4A023N7 Measurement of Cardiac Sampling and Pressure, Left Heart, Percutaneous Approach (ICD-10-PCS; principal; 2023-08-12)
PROC: 027034Z Dilation of Coronary Artery, One Artery with Drug-eluting Intraluminal Device, Percutaneous Approach (ICD-10-PCS; 2023-08-12)
PROC: B2151ZZ Fluoroscopy of Left Heart using Low Osmolar Contrast (ICD-10-PCS; 2023-08-12)
DX: I21.4 Non-ST elevation (NSTEMI) myocardial infarction (principal); I50.43 Acute on chronic combined systolic (congestive) and diastolic (congestive) heart failure; N17.9 Acute kidney failure, unspecified; I13.0 Hypertensive heart and chronic kidney disease with heart failure and stage 1 through stage 4 chronic kidney disease, or unspecified chronic kidney disease; I42.9 Cardiomyopathy, unspecified; E11.65 Type 2 diabetes mellitus with hyperglycemia; D63.1 Anemia in chronic kidney disease; N18.32 Chronic kidney disease, stage 3b; I25.10 Atherosclerotic heart disease of native coronary artery without angina pectoris; Z88.0 Allergy status to penicillin; Z79.899 Other long term (current) drug therapy
CPT/HCPCS: 36415; 71045; 76775; 80048; 80053; 81001; 82306; 82570; 83735; 83880; 83970; 84100; 84156; 84300; 84484; 85025; 85610; 85730; 87081; 92941; 93005; 93458; 94640; 96372; 96374; 97110; 97116; 97163; 97530; 99152; 99291; G0378; J2001; J2250; Q9967

== ENCOUNTER 2024-04-07 20:17 | Inpatient (IN) | payer OTHER ==
[~2024-04-07] VITALS: Ht 162.6 cm; Wt 70.0 kg
[~2024-04-07 20:17] MED LIST changes: +ATOR20TA50 PO; -CIPR500T4 PO; +CLOP75TA70 PO; +EMPA1TAB PO; -ENAL1TAB48 PO; -SIMV-268 PO; +SPIR25TA PO
--- NOTE | 2024-04-07 20:49 | ED.PDOC ---
HPI Comments 69-year-old female who came to ER for chest pains. Patient does have history of hypertension, diabetes, dyslipidemia, congestive heart failure, status post cardiac stents. About 30 minutes prior to arrival, patient was watching television when she developed sudden onset left-sided chest pains, described as pressure, 3/10 intensity, nonradiating, lasting about a minute, associated shortness of breath and dizziness. Denies any palpitations nausea or vomiting. Blood pressure upon arrival was 172/48 mm Hg Chief Complaint: Chest Pain Time Seen by MD: 20:46 Primary Care Provider: PHYLLIS Reviewed Notes: Nurses Notes Allergies: Coded Allergies: Penicillins (Verified Adverse Reaction, Severe, 10/18/14) Uncoded Allergies: ADHESIVE (Allergy, Unknown, 12/22/17) Home Meds Active Scripts Spironolactone (Aldactone) 25 Mg Tab, 12.5 MG PO DAILY, #60 TAB Prov:EDDIE RICKETTS MD 08/13/23 Sacubitril-Valsartan (Entresto 24-26 mg) 1 Tab Tab, 1 TAB PO BID, #60 TAB Prov:EDDIE RICKETTS MD 08/13/23 Empagliflozin (Jardiance) 10 Mg Tab, 10 MG PO DAILY for 60 Days, #60 TAB Prov:EDDIE RICKETTS MD 08/13/23 Clopidogrel Bisulfate (CLOPIDOGREL) 75 Mg Tab, 75 MG PO DAILY, #60 TAB Prov:EDDIE RICKETTS MD 08/13/23 Atorvastatin Calcium (ATORVASTATIN CALCIUM) 20 Mg Tab, 40 MG PO HS, #60 TAB Prov:EDDIE RICKETTS MD 08/13/23 Pantoprazole Sodium Sesquihydr (Pantoprazole Sodium Dr) 40 Mg Tab, 40 MG PO DAILY, #60 TAB Prov:VENANCIO SHARP MD 07/02/23 Albuterol Sulfate (Albuterol Sulfate Hfa) 108 Mcg/Act Aer, 1 PUFF IN Q4HPRN PRN, #1 INH As needed for cough nasal congestion shortness of breath or wheeze Prov:VASU NATION Q LAWN MOWER SHARPENER 06/14/23 Furosemide (Lasix) 20 Mg Tb, 20 MG GT BID, #30 TAB 0 Refills Prov:TIA RAMIREZ MD 07/04/21 Reported Medications Potassium Chloride (Klor-Con 8) 8 Meq Tab, 1 TAB PO DAILY 07/01/23 Metformin Hydrochloride (Metformin Hcl) 500 Mg Tab, 500 MG PO BID, TAB 08/06/15 Carvedilol (Carvedilol) 6.25 Mg Tab, 1 TAB PO BID, TAB 1 Refill 08/06/15 Aspirin (Aspir-81) 81 Mg Tab, 81 MG PO DAILY, TAB 08/06/15 Ferrous Sulfate (Ferrous Sulfate) 325 Mg Tab, 325 MG PO TID 08/06/15 Information Source: Patient Mode of Arrival: Ambulatory Severity: Moderate Timing: Minutes Duration: Minutes Prehospital treatment: None Location: Chest (L) Radiation: No Radiation Quality: Pressure Onset: With Light Exertion Cardiac Risk Factors: Hyperlipidemia, HTN, Diabetes PE Risk Factors: Other History of: Similar pain in past Modifying Factors: Nothing Associated Signs and Symptoms: SOB Review of Systems: REVIEW OF SYSTEMS: No fever, no chills, or fatigue HEENT: No sore throat, no earache, no congestion, no neck pain. Cardiac: (+)chest pain. No palpitations. Lungs: (+)shortness of breath, no cough. GI: No nausea, no vomiting, no diarrhea, no constipation, no abdominal pain : No dysuria, frequency, or urgency. No hematuria. Musculoskeletal: No joint pain , no joint swelling, no extremity edema. Skin: No rash, no itching. Neuro: No headache, (+) dizziness, no weakness Vital Signs Vital Signs Date Time Temp Pulse Resp B/P (MAP) Pulse Ox O2 Delivery O2 Flow Rate FiO2 04/07/24 22:43 98.3 45 12 145/48 (80) 100 98.3 Physical Exam General: Awake, alert and oriented. No acute distress. Skin: Skin in warm, dry and intact. Appropriate color for ethnicity. Nailbeds pink with no cyanosis. HEENT: The head is normocephalic and atraumatic. Conjunctivae are clear without exudates or hemorrhage. Sclera is non-icteric. EOM are intact. No signs of nystagmus. Eyelids are normal in appearance without swelling or lesions. Oral mucosa is pink and moist Neck: The neck is supple with normal range of motion. No JVD. Cardiac: Heart rate and rhythm are normal. No murmurs, gallops, or rubs are auscultated. Respiratory: No signs of respiratory distress. Lung sounds are clear in all lobes bilaterally without rales, ronchi, or wheezes. Abdominal: Abdomen is soft, non-tender without distention. Bowel sounds are present and normoactive in all four quadrants. Extremities: Upper and lower extremities are atraumatic in appearance without deformity or edema. Neurological: The patient is awake, alert and oriented to person, place, and time with normal speech. Speech is clear. There is no facial asymmetry. Psychiatric: Appropriate mood and affect. Good judgement and insight. No visual or auditory hallucinations. Past Medical History PAST MEDICAL HISTORY: CAD, CHF, DM, High Lipids, HTN Surgical History: PTCA ADVICE LINE RN History: No Pertinent ADVICE LINE RN History Family History Family History: Reviewed,noncontributory to illness Social History Smoker: Non-Smoker Alcohol: Denies ETOH Use Drugs: Denies Drug Use Lives In: Home EKG EKG : Pulse Rate (adult): 103 Cardiac Rhythm: ST Comments Ventricular bigeminy. No STEMI Was a procedure done? Was a procedure done?: No CP Differential Dx Differential Diagnosis: Angina, Anxiety / Panic Attack, Sinus Tachycardia, Ventricular Dysrhythmia Differential Diagnosis: Angina, Chest Wall Pain, Costochondritis, Esophageal reflux/spasm, Gastritis, Myocardial Infarction, Pneumonia X-Ray, Labs, Meds, VS Vital Signs Date Time Temp Pulse Resp B/P (MAP) Pulse Ox O2 Delivery O2 Flow Rate FiO2 04/07/24 22:43 98.3 45 12 145/48 (80) 100 98.3 04/07/24 21:25 104 04/07/24 20:49 103 04/07/24 20:24 103 04/07/24 20:22 97.7 103 16 172/48 (89) 98 Lab Test 04/07/24 21:20 04/07/24 20:36 04/07/24 20:29 Range/Units Troponin I High Sensitivity 64 *H 64 *H </=34 ng/L White Blood Count 6.8 4.4-10.8 10^3/uL Red Blood Count 4.99 4.0-5.20 10^6/uL Hemoglobin 12.8 12.2-16.2 g/dL Hematocrit 40.8 36.0-46.0 % Mean Corpuscular Volume 81.9 80.0-100.0 fL Mean Corpuscular Hemoglobin 25.7 L 28.0-32.0 pg Mean Corpuscular Hemoglobin Concent 31.3 L 32.0-36.0 g/dL Red Cell Distribution Width 16.4 H 11.8-14.3 % Platelet Count 223 140-450 10^3/uL Mean Platelet Volume 9.3 6.9-10.8 fL Neutrophils (%) (Auto) 46.6 37.0-80.0 % Lymphocytes (%) (Auto) 43.6 10.0-50.0 % Monocytes (%) (Auto) 8.2 0.0-12.0 % Eosinophils (%) (Auto) 1.0 0.0-7.0 % Basophils (%) (Auto) 0.6 0.0-2.0 % Neutrophils # (Auto) 3.1 1.6-8.6 10 ^3/uL Lymphocytes # (Auto) 3.0 0.4-5.4 10 ^3/uL Monocytes # (Auto) 0.6 0-1.3 10 ^3/uL Eosinophils # (Auto) 0.1 0-0.8 10 ^3/uL Basophils # (Auto) 0 0-0.2 10 ^3/uL Nucleated Red Blood Cells 0.1 % Sodium Level 143 136-145 mmol/L Potassium Level 4.2 3.5-5.1 mmol/L Chloride Level 109 H 98-107 mmol/L Carbon Dioxide Level 24 20-31 mmol/L Anion Gap 10 5-15 Blood Urea Nitrogen 21 9-23 mg/dL Creatinine 1.38 H 0.550-1.02 mg/dL Glomerular Filtration Rate Calc 42 >90 mL/min BUN/Creatinine Ratio 15.2 10.0-20.0 Serum Glucose 144 H 74-106 mg/dL Calcium Level 10.0 8.7-10.4 mg/dL Magnesium Level 2.0 1.6-2.6 mg/dL Total Bilirubin 0.4 0.2-1.0 mg/dL Aspartate Amino Transferase (AST) 11 L 13-40 U/L Alanine Aminotransferase (ALT) 18 7-40 U/L Alkaline Phosphatase 73 46-116 U/L B-Type Natriuretic Peptide 364.36 0-100 pg/mL Total Protein 6.6 5.7-8.2 g/dL Albumin 4.1 3.2-4.8 g/dL Thyroid Stimulating Hormone (TSH) 2.34 0.55-4.78 uIU/mL Urine Color Yellow Yellow Urine Clarity Clear Clear Urine pH 5.0 5.0-9.0 Urine Specific [place] 1.025 1.001-1.035 Urine Protein Trace H Negative Urine Ketones Negative Negative Urine Blood Negative Negative /uL Urine Nitrite Negative Negative Urine Bilirubin Negative Negative Urine Urobilinogen Normal Negative mg/dL Urine Leukocyte Esterase 2+ Negative /uL Urine RBC 3 0 - 4 /hpf Urine WBC 4 0 - 5 /hpf Urine Squamous Epithelial Cells Few <5 /hpf Urine Bacteria Few H None Seen /hpf Urine Mucus Few None Seen Urine Glucose 4+ H Normal mg/dL Current Medications Medications (Trade) Dose Ordered Sig/Xenia Route Start Time Stop Time Status Last Admin Amiodarone HCl 100 ml @ 618 mls/hr ONCE ONCE IV 04/07/24 22:00 04/07/24 22:09 DC 04/07/24 23:03 CHEST RADIOGRAPH FINDINGS: Lines and Tubes: None Lungs: No focal consolidation. Pleura: No effusion. No pneumothorax. Cardiomediastinal contours: Unremarkable Bones: No acute osseous abnormality. IMPRESSION: No acute cardiopulmonary disease. Images Reviewed?: Images reviewed and evaluated by me (Karl) Time of 1ST Reevaluation: 20:43 Reevaluation 1ST: Unchanged Patient Education/Counseling: Diagnosis, Treatment Family Education/Counseling: No Family Present Departure 1 Departure Time of Disposition: 21:49 Impression: Primary Impression: Ventricular bigeminy Additional Impressions: Chest pain Renal failure Elevated troponin Disposition: ADMITTED INPATIENT Condition: Stable Comments 69-year-old female with several episodes of less than 1 minute chest pain. EKG shows ventricular bigeminy. Troponin is mildly elevated in the setting of chronic renal failure. We will trend troponin and EKGs. Start amiodarone for ventricular bigeminy. Patient admitted for further treatment, evaluation and monitoring. Extensive evaluation was performed in attempt to to identify or rule out: (See differential diagnosis section) The following tests were ordered, and results were reviewed by me: (See diagnostic results section) The following test were independently interpreted by me: N/A I reviewed and agreed with the following test results read by other providers: N/A I reviewed the following notes from the pt's past medical encounters: December 2023 hospitalization, June 2023 hospitalization for ventricular bigeminy Additional information was gathered from interviewing the following independent historians: N/A Discussion of management or test interpretation with external physician/other qualified health healthcare administration intern: 22:[address] Ordonez who accepts patient for admission. Addressed an acute or chronic illness that poses a threat to life or bodily function: Cardiac arrhythmia, chest pain, possible NSTEMI Decision regarding hospitalization or escalation of hospital level of care: Risk and benefits of admission for further treatment of patient's condition was considered. Due to patient's current clinical condition, high risk of decline and poor outcome if discharged and need for further inpatient management and monitoring, patient will be admitted to the hospital. Drug therapy requiring intensive monitoring for toxicity: Amiodarone IV Critical Care Note Critical Care Time?: Yes (35 min-critical care time only) Critical care comment: Abnormal EKG Stability Stability form required: No Heart Score Heart Score: Heart Score Response (Comments) Value History Moderate Suspicious [address]-Deviation 2 Age >65 2 Risk Factors >3 or Hx ASHD 2 Troponin Normal limit 0 Total 7 I personally scribed for YAHIR IVEY MD ([email or web address]) on 04/07/24 at 20:49. Electronically submitted by Shay Mcgee ([email or web address]). I personally scribed for YAHIR IVEY MD ([email or web address]) on 04/07/24 at 21:10. Electronically submitted by Shay Mcgee ([email or web address]). YAHIR IVEY MD Apr 07, 2024 20:49
[2024-04-07 20:56] LABS: Basophils # (auto) 0 10 ^3/uL (0-0.2); Eosinophils # (auto) 0.1 10 ^3/uL (0-0.8); Neutrophils # (auto) 3.1 10 ^3/uL (1.6-8.6); Nucleated Red Blood Cells % 0.1 %; White Blood Cell 6.8 10^3/uL (4.4-10.8)
[2024-04-07 20:58] LABS: Basophils % (auto) 0.6 % (0.0-2.0); Hematocrit 40.8 % (36.0-46.0); Hemoglobin 12.8 g/dL (12.2-16.2); Lymphocytes % (auto) 43.6 % (10.0-50.0); Mean Corpuscular Hemoglobin 25.7 pg (28.0-32.0); Mean Corpuscular Hgb Conc. 31.3 g/dL (32.0-36.0); Mean Corpuscular Volume 81.9 fL (80.0-100.0); Monocytes # (auto) 0.6 10 ^3/uL (0-1.3); Monocytes % (auto) 8.2 % (0.0-12.0); Neutrophils % (auto) 46.6 % (37.0-80.0); Platelet Count (auto) 223 10^3/uL (140-450); Red Blood Cells 4.99 10^6/uL (4.0-5.20); Red Cell Distribution Width 16.4 % (11.8-14.3)
--- NOTE | 2024-04-07 21:02 | DVH ---
CHEST RADIOGRAPH Indication: CHEST PAIN Technique: Single frontal view of the chest was obtained Comparison: XY CHEST PORTABLE on DOS: 08/11/23, XY CHEST XRAY 1 VIEW on DOS: 08/10/23, XY CHEST PORTABL E on DOS: 08/08/23 FINDINGS: Lines and Tubes: None Lungs: No focal consolidation. Pleura: No effusion. No pneumothorax. Cardiomediastinal contours: Unremarkable Bones: No acute osseous abnormality. IMPRESSION: No acute cardiopulmonary disease.
[2024-04-07 21:05] LABS: Potassium 4.1 mmol/L (3.5-5.1); Sodium 143 mmol/L (136-145)
[2024-04-07 21:06] LABS: Anion Gap 11 (5-15); Carbon Dioxide 23 mmol/L (20-31)
[2024-04-07 21:07] LABS: Calcium 10.1 mg/dL (8.7-10.4)
[2024-04-07 21:12] LABS: BUN/Creatinine Ratio 12.4 (10.0-20.0); Blood Urea Nitrogen 17 mg/dL (9-23)
[2024-04-07 21:16] LABS: Alanine Aminotransferase 18 U/L (7-40); Albumin 4.1 g/dL (3.2-4.8); Alkaline Phosphatase 73 U/L (46-116); Anion Gap 10 (5-15); BUN/Creatinine Ratio 15.2 (10.0-20.0); Bilirubin, Total 0.4 mg/dL (0.2-1.0); Blood Urea Nitrogen 21 mg/dL (9-23); Carbon Dioxide 24 mmol/L (20-31); Potassium 4.2 mmol/L (3.5-5.1); Sodium 143 mmol/L (136-145); Total Protein 6.6 g/dL (5.7-8.2)
[2024-04-07 21:43] LABS: Aspartate Aminotransferase 11 U/L (13-40); Chloride 109 mmol/L (98-107); Glucose 144 mg/dL (74-106); Glucose 146 mg/dL (74-106)
[2024-04-07 22:30] LABS: Urine Bacteria FEW /hpf (None Seen); Urine Blood Negative /uL (Negative); Urine Clarity Clear (Clear); Urine Color Yellow (Yellow); Urine Mucus FEW (None Seen); Urine Protein, UAD TRACE (Negative); Urine Specific Gravity 1.025 (1.001-1.035); Urine Urobilinogen Normal (Negative); Urine WBC 4 /hpf (0 - 5)
[2024-04-07] MEDS ORDERED: NITROGLYCERIN 0.4 MG SL TAB SL PRN (22:45)
[2024-04-07] MEDS ORDERED: DEXTROSE (50%) 50ML SYRG IV PRN (22:45)
[2024-04-07] MEDS ORDERED: ONDANSETRON HCL 4 MG/2 ML VIAL IV PRN (22:45)
[2024-04-07] MEDS ORDERED: ACETAMINOPHEN 325 MG TAB PO PRN (22:45)
[2024-04-07] MEDS ORDERED: HYDROcodone-ACET 5/325MG TAB PO PRN (22:45)
[2024-04-07] MEDS ORDERED: MORPHINE SULFATE INJ 2 MG/ml SYRG IV PRN (22:45)
[2024-04-07] MEDS ORDERED: MELATONIN 5 MG TAB PO PRN (22:45)
[2024-04-07 23:00] VITALS: PULSE 93; RESP 20; O2SAT 95
[2024-04-07] MEDS: AMIODARONE BOLUS KIT 100 ML IV ONE (23:03)
[2024-04-07] MEDS: METOPROLOL TARTRATE 25 MG TAB PO SCH (23:24)
[2024-04-08] VITALS (7 sets, daily range): BP systolic 117–128; BP diastolic 55–78; PULSE 57–96; RESP 16–18; TEMP 97.5–98.4; O2SAT 96–99
--- NOTE | 2024-04-08 00:48 | DVHHP2 ---
Admitting Diagnosis: chest pain, ventricular bigeminy History of Present Illness History Source: Patient Exam Limitations: No limitations HPI Mrs. Katy Sloan is a 69-year-old female with a history of hypertension, diabetes, dyslipidemia, congestive heart failure, status post cardiac stent 01/18, who presents with chest pain associated with shortness of breath. Patient reports the pain started x 30 minutes prior to going to the ED. Patient denies any current chest pain, dyspnea, headaches, dizziness, nausea, vomiting. Patient BNP 364, Troponin 64. Patient admitted for further evaluation. Home Meds Active Scripts Spironolactone (Aldactone) 25 Mg Tab, 12.5 MG PO DAILY, #60 TAB Prov:EDDIE RICKETTS MD 08/13/23 Sacubitril-Valsartan (Entresto 24-26 mg) 1 Tab Tab, 1 TAB PO BID, #60 TAB Prov:EDDIE RICKETTS MD 08/13/23 Empagliflozin (Jardiance) 10 Mg Tab, 10 MG PO DAILY for 60 Days, #60 TAB Prov:EDDIE RICKETTS MD 08/13/23 Clopidogrel Bisulfate (CLOPIDOGREL) 75 Mg Tab, 75 MG PO DAILY, #60 TAB Prov:EDDIE RICKETTS MD 08/13/23 Atorvastatin Calcium (ATORVASTATIN CALCIUM) 20 Mg Tab, 40 MG PO HS, #60 TAB Prov:EDDIE RICKETTS MD 08/13/23 Pantoprazole Sodium Sesquihydr (Pantoprazole Sodium Dr) 40 Mg Tab, 40 MG PO DAILY, #60 TAB Prov:VENANCIO SHARP MD 07/02/23 Albuterol Sulfate (Albuterol Sulfate Hfa) 108 Mcg/Act Aer, 1 PUFF IN Q4HPRN PRN, #1 INH As needed for cough nasal congestion shortness of breath or wheeze Prov:VASU NATION Q ELECTRIC DEICER ASSEMBLER 06/14/23 Furosemide (Lasix) 20 Mg Tb, 20 MG GT BID, #30 TAB 0 Refills Prov:TIA RAMIREZ MD 07/04/21 Reported Medications Potassium Chloride (Klor-Con 8) 8 Meq Tab, 1 TAB PO DAILY 07/01/23 Metformin Hydrochloride (Metformin Hcl) 500 Mg Tab, 500 MG PO BID, TAB 08/06/15 Carvedilol (Carvedilol) 6.25 Mg Tab, 1 TAB PO BID, TAB 1 Refill 08/06/15 Aspirin (Aspir-81) 81 Mg Tab, 81 MG PO DAILY, TAB 08/06/15 Ferrous Sulfate (Ferrous Sulfate) 325 Mg Tab, 325 MG PO TID 08/06/15 Past Medical History Cardiac: CHF, HTN, Hyperlipidemia Pulmonary: No pertinent Hx Central Nervous System: No pertinent Hx GI: No pertinent Hx Hemotology/Oncology: No pertinent Hx Hepatobiliary: No pertinent Hx Psychiatric: No pertinent Hx Musculoskeletal: No pertinent Hx Rheumotologic: No pertinent Hx Infectious Disease: No peritnent Hx ENT: No pertinent Hx Renal/: No pertinent Hx Endocrine: NIDDM Dermatology: No pertinent Hx Past Surgical History: PTCA Patient Family History: Patient reports no known family medical history. Smoker: No Hx (Negative) Alocohol: None Drugs: None Domestic Violence: Neg Review of Systems Constitutional: No symptom reported Ears, Nose, & Throat: No symptom reported Eyes: No symptom reported Pulmonary/Respiratory: No symptom reported Cardiovascular: No symptom reported Gastrointestinal: No symptom reported Genitourinary: No symptom reported Musculoskeletal: No symptom reported Skin: No symptom reported Psychiatric: No symptom reported Endocrine: No symptom reported Hemotologic/Lymphatic: No symptom reported H&P Exam Vital Signs Vital Signs Date Time Temp Pulse Resp B/P (MAP) Pulse Ox O2 Delivery O2 Flow Rate FiO2 04/07/24 23:28 68 04/07/24 23:24 129/53 04/07/24 22:43 98.3 12 100 98.3 General Appeara: Well developed, Well nourished, Normal Appearance Head Exam: Normal inspection Neck Exam: Normal inspection, Non-tender, Normal alignment Eye Exam: bilateral eye Normal inspection, bilateral eye PERRL, bilateral eye EOMI Ear Exam: bilateral ear Auricle normal Nasal Exam: Normal inspection Mouth: Normal Inspection Pulmonary/Respiratory: Normal inspection, Normal breath sounds, Chest non- tender, Lungs clear Cardiovascular/Chest: Normal inspection, Regular rate, Normal Rhythm Peripheral Pulses: 2+ dorsalis pedis (R), 2+ dorsalis pedis (L), 2+ Radial (R), 2+ Radial (L) Abdominal Exam: Normal bowel sounds, Soft, No tenderness Rectal Exam: Deferred Pelvic Exam: Not done MANAGER LIBRARY Exam: Normal hearing, Normal speech, PERRL Motor/Sensory: Normal sensory function, Normal motor function Neuro/Mental St: Alert, Oriented Appearance: Appropriate appearance, Appropriate insight Eye contact/ Speech: Cooperative, Good eye contact, Normal speech Thoughts/Psych: Normal thought pattern Skin Exam: Normal inspection, Normal color, Warm/dry Labs/Xrays Labs Test 04/07/24 23:10 04/07/24 20:36 04/07/24 20:29 Range/Units Troponin I High Sensitivity 57 *H </=34 ng/L White Blood Count 6.8 4.4-10.8 10^3/uL Red Blood Count 4.99 4.0-5.20 10^6/uL Hemoglobin 12.8 12.2-16.2 g/dL Hematocrit 40.8 36.0-46.0 % Mean Corpuscular Volume 81.9 80.0-100.0 fL Mean Corpuscular Hemoglobin 25.7 L 28.0-32.0 pg Mean Corpuscular Hemoglobin Concent 31.3 L 32.0-36.0 g/dL Red Cell Distribution Width 16.4 H 11.8-14.3 % Platelet Count 223 140-450 10^3/uL Mean Platelet Volume 9.3 6.9-10.8 fL Neutrophils (%) (Auto) 46.6 37.0-80.0 % Lymphocytes (%) (Auto) 43.6 10.0-50.0 % Monocytes (%) (Auto) 8.2 0.0-12.0 % Eosinophils (%) (Auto) 1.0 0.0-7.0 % Basophils (%) (Auto) 0.6 0.0-2.0 % Neutrophils # (Auto) 3.1 1.6-8.6 10 ^3/uL Lymphocytes # (Auto) 3.0 0.4-5.4 10 ^3/uL Monocytes # (Auto) 0.6 0-1.3 10 ^3/uL Eosinophils # (Auto) 0.1 0-0.8 10 ^3/uL Basophils # (Auto) 0 0-0.2 10 ^3/uL Nucleated Red Blood Cells 0.1 % Sodium Level 143 136-145 mmol/L Potassium Level 4.2 3.5-5.1 mmol/L Chloride Level 109 H 98-107 mmol/L Carbon Dioxide Level 24 20-31 mmol/L Anion Gap 10 5-15 Blood Urea Nitrogen 21 9-23 mg/dL Creatinine 1.38 H 0.550-1.02 mg/dL Glomerular Filtration Rate Calc 42 >90 mL/min BUN/Creatinine Ratio 15.2 10.0-20.0 Serum Glucose 144 H 74-106 mg/dL Calcium Level 10.0 8.7-10.4 mg/dL Magnesium Level 2.0 1.6-2.6 mg/dL Total Bilirubin 0.4 0.2-1.0 mg/dL Aspartate Amino Transferase (AST) 11 L 13-40 U/L Alanine Aminotransferase (ALT) 18 7-40 U/L Alkaline Phosphatase 73 46-116 U/L B-Type Natriuretic Peptide 364.36 0-100 pg/mL Total Protein 6.6 5.7-8.2 g/dL Albumin 4.1 3.2-4.8 g/dL Thyroid Stimulating Hormone (TSH) 2.34 0.55-4.78 uIU/mL Urine Color Yellow Yellow Urine Clarity Clear Clear Urine pH 5.0 5.0-9.0 Urine Specific [place] 1.025 1.001-1.035 Urine Protein Trace H Negative Urine Ketones Negative Negative Urine Blood Negative Negative /uL Urine Nitrite Negative Negative Urine Bilirubin Negative Negative Urine Urobilinogen Normal Negative mg/dL Urine Leukocyte Esterase 2+ Negative /uL Urine RBC 3 0 - 4 /hpf Urine WBC 4 0 - 5 /hpf Urine Squamous Epithelial Cells Few <5 /hpf Urine Bacteria Few H None Seen /hpf Urine Mucus Few None Seen Urine Glucose 4+ H Normal mg/dL Assessment/Plan Problem List: (1) Chest pain (2) Elevated troponin (3) Ventricular bigeminy (4) MELBA (acute kidney injury) Plan 69 yo female with known history of hypertension, diabetes mellitus, CHF, PTCA, dyslipidemia presents with chest pain and shortness of breath. Patient found to have 1. Chest pain rule out ACS 2. Mildly Elevated troponin 3. MELBA Patient admitted to telemetry Cardiology consultation, 2D echocardiogram, serial troponin levels, ASA, Statin Lipid panel, monitor BMP Discussed all above with patient who verbalizes agreement and understanding of care plan. All questions were answered. Discussed assessment and care plan with supervising MD . Plan discussed with: Patient, Other Code Visit Code Visit Total Time (mins): 45 Additional Comments Additional Comments Additional Comments Patient is seen, evaluated and admitted by nurse practitioner this morning. Patient's chart is reviewed and evaluated by me this afternoon. I agree with the nurse practitioner's evaluation, documentation, assessment and care plan as outlined. CAROLE SIMON Apr 08, 2024 00:48 VENANCIO SHARP MD Apr 08, 2024 15:31
--- NOTE | 2024-04-08 04:11 | ECG ---
[facility] Test Date: 2024-04-07 Test Time: 20:24:06 Pat Name: KENNY GERRADO Department: ER Room: 0219T B Gender: F License And Permit Specialist: ER : 1955 Requested By: YAHIR IVEY Order Number: [id number] Reading MD: Fran Mac Measurements Intervals [place] Rate: 103 P: 71 [place]: 182 QRS: -12 QRSD: 106 T: 249 QT: 406 QTc: 532 Interpretive Statements Sinus tachycardia Ventricular bigeminy Repol abnrm suggests ischemia, diffuse leads Baseline wander in lead(s) I,III,aVL Electronically Signed On 04-08-2024 12:51:15 PST by Fran Mac Please click the below link to view image of tracing.
--- NOTE | 2024-04-08 04:11 | ECG ---
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
--- NOTE | 2024-04-08 04:12 | ECG ---
[facility] Test Date: 2024-04-07 Test Time: 23:28:13 Pat Name: KENNY GERARDO Department: er Room: 0219T B Gender: F Steam Shovel Oiler: er : 1955 Requested By: YAHIR IVEY Order Number: [id number] Reading MD: Fran Mac Measurements Intervals [place] Rate: 68 P: 69 [place]: 193 QRS: 5 QRSD: 105 T: 255 QT: 441 QTc: 470 Interpretive Statements Sinus rhythm Ventricular trigeminy Abnormal T, consider ischemia, diffuse leads Electronically Signed On 04-08-2024 12:52:00 PST by Fran Mac Please click the below link to view image of tracing.
[2024-04-08] MEDS: FERROUS SULFATE 325mg EC TAB PO SCH (05:10)
[2024-04-08] MEDS ORDERED: PATIENTS OWN MEDICATION (Ferrous Sulfate 325 MG) PO SCH (06:00)
[2024-04-08] MEDS: InsuLIN REG 1unit/0.01ml Soln (100units/ml) SC SCH (06:27)
[2024-04-08] MEDS: ACCU-CHEK COMFORT CURVE STRIP VI SCH (06:27)
[2024-04-08 06:53] LABS: Potassium 3.7 mmol/L (3.5-5.1); Sodium 143 mmol/L (136-145)
[2024-04-08 06:54] LABS: Anion Gap 7 (5-15); Calcium 9.7 mg/dL (8.7-10.4); Carbon Dioxide 26 mmol/L (20-31)
[2024-04-08 06:59] LABS: Blood Urea Nitrogen 19 mg/dL (9-23); Glucose 93 mg/dL (74-106)
[2024-04-08 07:00] LABS: Chloride 110 mmol/L (98-107)
[2024-04-08 07:26] LABS: Triglycerides 93 mg/dL (< 150)
[2024-04-08 07:27] LABS: LDL Cholesterol 61 mg/dL (< 100)
[2024-04-08 07:28] LABS: Cholesterol 140 mg/dL (< 200)
[2024-04-08 07:31] LABS: HDL Cholesterol 60 mg/dL (40-59)
[2024-04-08] MEDS ORDERED: FERROUS SULFATE 325mg EC TAB PO SCH (10:00)
[2024-04-08] MEDS ORDERED: PATIENTS OWN MEDICATION (Carvedilol 1 TAB) PO SCH (10:00)
[2024-04-08] MEDS: CLOPIDOGREL BISULFATE 75 MG TAB PO SCH (10:52)
[2024-04-08] MEDS: ASPirin-EC 81 mg tab PO SCH (10:52)
[2024-04-08] MEDS: FAMOTIDINE 20 MG TAB PO SCH (10:52)
[2024-04-08] MEDS: CARVEDILOL 3.125 MG TAB PO SCH (10:54)
[2024-04-08] MEDS: SPIRONOLACTONE 25 MG TAB PO SCH (10:54)
--- NOTE | 2024-04-08 13:11 | DVHSR ---
APPROVED REPORT EXAM: Two-dimensional and M-mode echocardiogram with Doppler and color Doppler. Blood Pressure: 124/62 mmHg INDICATION Chest Pain RISK FACTORS Height: 5'4", Weight: 164 DIMENSIONS LVDd6.0 (3.8-5.7cm)LA (2D)4.1 (1.9-4.0cm)Aortic Root3.0 (2.0-3.7cm) LVDs5.3 (2.5-4.0cm)LA (MM) (1.9-4.0cm)Aortic Cusp Exc1.1 (1.5-2.0cm) EF (%) 22.0 (55-70%)Rt. Atrium4.2 (1.9-4.0cm)Asc. Aorta3.1 cm IVSd0.9 (0.7-1.1cm)RV (D)3.4 (1.8-2.4cm) PWd0.8 (0.7-1.1cm) Mitral Valve MitralMitral Stenosis E wave1.02m/sMV Mean GR.mmHg A wave1.07m/sMV Peak GR.mmHg E/A ratio1.02D MVAcm2 DECEL [id number] 1/2 Timems Aortic Valve Aortic ValveAortic Stenosis V10.99m/Clemente Mean GR.7mmHg V21.71m/Clemente Peak GR.12mmHg LVOT Diameter2.2 (1.8-2.4cm)Doppler AVA2.20cm2 2D AVA1.28cm2 AI P 1/2 Ttry082.31ms Pulmonic Valve V20.61m/s Tricuspid Valve TR Velocity1.88m/s [id number] Other Information Quality : Technically LimitedRhythm : Technically limited study due to body habitus. Conclusion Technically good study sinus rhythm. Left atrial enlargement. [id number] calcification of the aortic leaflets. Especially of the left coronary cusp. Mild m itral annular calcification. Left ventricular function is diminished. EF is about 30-35% with global hypokinesis. Normal right v entricular function. Severe mitral insufficiency. Moderate tricuspid regurgitation. Moderate aortic insufficiency. No pericardial effusion masses or vegetations.
--- NOTE | 2024-04-08 17:46 | DVHINCON2 ---
HISTORY OF PRESENT ILLNESS: The patient is a 69-year-old lady with a history of hypertension, diabetes and dyslipidemia with a noted history of congestive heart failure, mitral insufficiency, aortic insufficiency and cardiomyopathy. She did have several months ago a stent to the RCA. Heart catheterization revealed a diminished ejection fraction, for which an ICD was requested. She is still considering this process. She comes in complaining of atypical chest pain. Her symptoms were somewhat atypical. She was watching the football game and states she may have become a little bit excited. PAST MEDICAL HISTORY: As noted significant for CHF, hypertension, hyperlipidemia, mitral insufficiency. FAMILY HISTORY: Noncontributory. SOCIAL HISTORY: Nondrinker, nonsmoker. REVIEW OF SYSTEMS: CONSTITUTIONAL: Negative from a constitutional standpoint, no fever, chills or weight loss. ENT: Negative. CARDIAC AND RESPIRATORY: As noted above. GASTROINTESTINAL: Negative. : Negative. MUSCULOSKELETAL: Negative. SKIN: Negative. PSYCHIATRIC: Negative. ENDOCRINE: Negative. HEMATOLOGICALLY: Negative. PHYSICAL EXAMINATION: GENERAL: She is awake and responsive, no acute distress. VITAL SIGNS: Her blood pressure has been stable 124/62 with a respiratory rate of 16, pulse of 57. HEENT: Reveals an atraumatic and normocephalic skull. Pupils are equally reactive. Orally well hydrated. Trachea central. NECK: Supple. Thyroid is not palpable. No jugular venous distention, no bruits. LUNGS: Reveal good air entry. No rales or rhonchi. HEART: Reveals regular S1, S2, soft S4. ABDOMEN: Unremarkable. EXTREMITIES: Reveal adequate perfusion without clubbing or cyanosis, no edema. NEUROLOGIC: Intact. INTEGUMENTARY: Within normal limits. LABORATORY DATA: WBC count 6000, hemoglobin and hematocrit of 12 and 40. Chemistry panel shows a BUN and creatinine of 19 and 1.2 respectively. Troponins are thus far negative, no indication of myocardial injury. EKG shows a sinus rhythm with nonspecific changes, bigeminy noted. IMPRESSION: Cardiomyopathy with EF of about 30%. Coronary artery disease with stable stenting to the RCA. History of severe mitral insufficiency. Aortic insufficiency of moderate degree. RECOMMENDATIONS: From a cardiac standpoint, we will strongly recommend the patient consider an ICD; however, she may be a candidate for mitral clip to alleviate some of her symptoms pertaining to mitral insufficiency. Afterload reduction is in order. We will place on continue on carvedilol and initiate Entresto for congestive heart failure. Outpatient followup in 4-6 weeks. MD DINA Denis/LATANYA TID: [id number] RECEIPT: [id number]
[2024-04-08] MEDS: SACUBITRIL-VALSARTAN 24mg/26mg TAB PO SCH (22:06)
[2024-04-08] MEDS: ATORVASTATIN 20 MG TAB PO SCH (22:07)
[2024-04-09] VITALS (7 sets, daily range): BP systolic 105–128; BP diastolic 51–72; PULSE 55–78; RESP 16–18; TEMP 97.4–98.8; O2SAT 96–100
[2024-04-09 06:14] LABS: Hemoglobin 11.8 g/dL (12.2-16.2)
[2024-04-09 06:17] LABS: Hematocrit 37.1 % (36.0-46.0); Mean Corpuscular Hemoglobin 25.7 pg (28.0-32.0); Mean Corpuscular Hgb Conc. 31.9 g/dL (32.0-36.0); Mean Corpuscular Volume 80.8 fL (80.0-100.0); Platelet Count (auto) 189 10^3/uL (140-450); Red Blood Cells 4.59 10^6/uL (4.0-5.20); Red Cell Distribution Width 16.4 % (11.8-14.3); White Blood Cell 5.1 10^3/uL (4.4-10.8)
[2024-04-09 06:22] LABS: Band Neutrophils % (manual) 0; Basophils % (manual) 0 (0.0-2.0); Blast Cells 0; Metamyelocytes % 0; Myelocytes % 0; Promyelocytes % 0; Reactive Lymphocytes 0
[2024-04-09 06:23] LABS: Potassium 4.3 mmol/L (3.5-5.1); Sodium 145 mmol/L (136-145)
[2024-04-09 06:24] LABS: Anion Gap 7 (5-15); Carbon Dioxide 27 mmol/L (20-31)
[2024-04-09 06:25] LABS: Calcium 9.4 mg/dL (8.7-10.4)
[2024-04-09 06:30] LABS: BUN/Creatinine Ratio 14.3 (10.0-20.0); Blood Urea Nitrogen 18 mg/dL (9-23)
[2024-04-09 06:35] LABS: Chloride 111 mmol/L (98-107); Glucose 112 mg/dL (74-106)
[2024-04-09 08:19] LABS: Eosinophils % (manual) 2 (0-7); Lymphocytes % (manual) 66 (10.0-50.0); Monocytes % (manual) 2 (0-12); Platelet Estimate Adequate
[2024-04-09] MEDS ORDERED: DICL1GEL83 EX (12:32)
--- NOTE | 2024-04-09 12:34 | DVHDS2 ---
Discharge Summary Date of Admission Apr 07, 2024 at 22:44 Date of Discharge: Apr 09, 2024 Labs/Diagnostic Data: Laboratory Results Test 04/09/24 11:27 04/09/24 04:41 04/08/24 05:58 04/07/24 20:36 POC Glucose 108 mg/dl (70-106) White Blood Count 5.1 10^3/uL (4.4-10.8) Red Blood Count 4.59 10^6/uL (4.0-5.20) Hemoglobin 11.8 g/dL (12.2-16.2) Hematocrit 37.1 % (36.0-46.0) Mean Corpuscular Volume 80.8 fL (80.0-100.0) Mean Corpuscular Hemoglobin 25.7 pg (28.0-32.0) Mean Corpuscular Hemoglobin Concent 31.9 g/dL (32.0-36.0) Red Cell Distribution Width 16.4 % (11.8-14.3) Platelet Count 189 10^3/uL (140-450) Mean Platelet Volume 9.3 fL (6.9-10.8) Neutrophils (%) (Auto) % (37.0-80.0) Lymphocytes (%) (Auto) % (10.0-50.0) Monocytes (%) (Auto) % (0.0-12.0) Basophils (%) (Auto) % (0.0-2.0) Neutrophils # (Auto) 10 ^3/uL (1.6-8.6) Lymphocytes # (Auto) 10 ^3/uL (0.4-5.4) Monocytes # (Auto) 10 ^3/uL (0-1.3) Differential Total Cells Counted 100.0 (100) Neutrophils % (Manual) 30 (37.0-80.0) Band Neutrophils % (Manual) 0 Lymphocytes % (Manual) 66 (10.0-50.0) Monocytes % (Manual) 2 (0-12) Eosinophils % (Manual) 2 (0-7) Basophils % (Manual) 0 (0.0-2.0) Metamyelocytes % (manual) 0 Myelocytes % (Manual) 0 Promyelocytes % (Manual) 0 Blast Cells % (Manual) 0 Reactive Lymphocytes 0 Platelet Estimate Adequate Sodium Level 145 mmol/L (136-145) Potassium Level 4.3 mmol/L (3.5-5.1) Chloride Level 111 mmol/L (98-107) Carbon Dioxide Level 27 mmol/L (20-31) Anion Gap 7 (5-15) Blood Urea Nitrogen 18 mg/dL (9-23) Creatinine 1.26 mg/dL (0.550-1.02) Glomerular Filtration Rate Calc 47 mL/min (>90) BUN/Creatinine Ratio 14.3 (10.0-20.0) Serum Glucose 112 mg/dL (74-106) Calcium Level 9.4 mg/dL (8.7-10.4) Troponin I High Sensitivity 28 ng/L (</=34) Triglycerides Level 93 mg/dL (< 150) Cholesterol Level 140 mg/dL (< 200) LDL Cholesterol 61 mg/dL (< 100) HDL Cholesterol 60 mg/dL (40-59) Eosinophils (%) (Auto) 1.0 % (0.0-7.0) Eosinophils # (Auto) 0.1 10 ^3/uL (0-0.8) Basophils # (Auto) 0 10 ^3/uL (0-0.2) Nucleated Red Blood Cells 0.1 % Magnesium Level 2.0 mg/dL (1.6-2.6) Total Bilirubin 0.4 mg/dL (0.2-1.0) Aspartate Amino Transferase (AST) 11 U/L (13-40) Alanine Aminotransferase (ALT) 18 U/L (7-40) Alkaline Phosphatase 73 U/L (46-116) B-Type Natriuretic Peptide 364.36 pg/mL (0-100) Total Protein 6.6 g/dL (5.7-8.2) Albumin 4.1 g/dL (3.2-4.8) Thyroid Stimulating Hormone (TSH) 2.34 uIU/mL (0.55-4.78) Test 04/07/24 20:29 Urine Color Yellow (Yellow) Urine Clarity Clear (Clear) Urine pH 5.0 (5.0-9.0) Urine Specific [place] 1.025 (1.001-1.035) Urine Protein Trace (Negative) Urine Ketones Negative (Negative) Urine Blood Negative /uL (Negative) Urine Nitrite Negative (Negative) Urine Bilirubin Negative (Negative) Urine Urobilinogen Normal mg/dL (Negative) Urine Leukocyte Esterase 2+ /uL (Negative) Urine RBC 3 /hpf (0 - 4) Urine WBC 4 /hpf (0 - 5) Urine Squamous Epithelial Cells Few /hpf (<5) Urine Bacteria Few /hpf (None Seen) Urine Mucus Few (None Seen) Urine Glucose 4+ mg/dL (Normal) Other Laboratory Tests 04/09/24 04:41 Final Diagnosis/Problems List Noncardiac musculoskeletal chest pain, congestive cardiomyopathy EF 35%, mitral valve insufficiency Discharge Disposition: Home Discharge Instruct/Medications Diet: Consistent carbohydrate, Cardiac 2g Na,low cholest Activity: No Restrictions, As Tolerated Activity comment: Oral fluid restriction to 1200 mL per 24 hours due to heart failure. Follow Up/Referral: Dr. Mac your heart doctor next week Medications: As prescribed and home medications per discharge medication list. Discharge Statement: "Patient was advised to return to the ER or call 911 if any headaches, dizziness, shortness of breath, chest pain, abdominal pain, bleeding, fevers, or worsening of medical condition. Patient was counseled about treatment plan, medications, possible side effects, patientverbalized understanding. All questions were answered to the best of my ability. This discharge took greater then 30 minutes in planning, reviewing documentation, counseling the patient, and discussing with other team members." ASSESSMENT ASSESSMENT Assessment Noncardiac musculoskeletal chest pain, congestive cardiomyopathy EF 35%, mitral valve insufficiency VENANCIO SHARP MD Apr 09, 2024 12:34
== END 2024-04-09 17:00 | disposition home or self-care (01) | DRG 291 ==
LOC: ER 20:17 → TELE 22:44 → TELE-CENTR 22:48
PROVIDERS: ADMIT Nurse Practitioner Family; ATTEND Hospitalist
DX: I11.0 Hypertensive heart disease with heart failure (principal); I50.33 Acute on chronic diastolic (congestive) heart failure; I42.0 Dilated cardiomyopathy; I08.0 Rheumatic disorders of both mitral and aortic valves; E11.9 Type 2 diabetes mellitus without complications; E78.5 Hyperlipidemia, unspecified; I25.10 Atherosclerotic heart disease of native coronary artery without angina pectoris; Z88.0 Allergy status to penicillin; Z95.5 Presence of coronary angioplasty implant and graft; Z79.84 Long term (current) use of oral hypoglycemic drugs; Z87.891 Personal history of nicotine dependence; Z79.82 Long term (current) use of aspirin; Z79.899 Other long term (current) drug therapy
CPT/HCPCS: 36415; 71045; 80048; 80053; 80061; 81001; 82962; 83735; 83880; 84443; 84484; 85007; 85025; 85027; 93005; 93306; 97163; 99291; G0378; J1815

== ENCOUNTER 2024-04-13 19:04 | Emergency (ER) | payer OTHER ==
[~2024-04-13] VITALS: Ht 162.6 cm; Wt 73.9 kg
[~2024-04-13 19:04] MED LIST changes: +DICL1GEL83 EX; -POTA8TAB38 PO; -SPIR25TA PO
--- NOTE | 2024-04-13 23:14 | ED.PDOC ---
Musculoskeletal HPI Comments 69-year-old female presents to ER with complaints of left arm pain x 1 hour. Patient with past medical history significant for CHF, hypertension, dyslipidemia, diabetes, ventricular bigeminy and cardiac stents reports that she started experiencing unprovoked left arm pain 1 hour prior to arrival to ER while she was watching TV. Denies any trauma/injury. She states her left arm pain has since fully subsided upon arrival to ER and denies any current pain. Patient presents to ER ambulatory on arrival, in no distress. Denies shortness of breath, chest pain, numbness/tingling, n/v, palpitations, fatigue, dizziness, syncope or any further symptoms/complaints Chief Complaint: Upper Extremity Time Seen by MD: 19:41 Primary Care Provider: PHYLLIS Reviewed Notes: Nurses Notes, Medications, Allergies Allergies: Coded Allergies: Penicillins (Verified Adverse Reaction, Severe, 10/18/14) Uncoded Allergies: ADHESIVE (Allergy, Unknown, 12/22/17) Home Meds Active Scripts Diclofenac Sodium (Topical) (Aspercreme Arthritis Pain) 1 % Gel, 1 % EX BID, #1 GEL To apply to chest area for sharp pain twice a day for seven days Prov:VENANCIO SHARP MD 04/09/24 Sacubitril-Valsartan (Entresto 24-26 mg) 1 Tab Tab, 1 TAB PO BID, #60 TAB Prov:EDDIE RICKETTS MD 08/13/23 Empagliflozin (Jardiance) 10 Mg Tab, 10 MG PO DAILY for 60 Days, #60 TAB Prov:EDDIE RICKETTS MD 08/13/23 Clopidogrel Bisulfate (CLOPIDOGREL) 75 Mg Tab, 75 MG PO DAILY, #60 TAB Prov:EDDIE RICKETTS MD 08/13/23 Atorvastatin Calcium (ATORVASTATIN CALCIUM) 20 Mg Tab, 40 MG PO HS, #60 TAB Prov:EDDIE RICKETTS MD 08/13/23 Pantoprazole Sodium Sesquihydr (Pantoprazole Sodium Dr) 40 Mg Tab, 40 MG PO DAILY, #60 TAB Prov:VENANCIO SHARP MD 07/02/23 Albuterol Sulfate (Albuterol Sulfate Hfa) 108 Mcg/Act Aer, 1 PUFF IN Q4HPRN PRN, #1 INH As needed for cough nasal congestion shortness of breath or wheeze Prov:NATIONMIKYLucy Morris HAND ALTERATIONS SEAMSTRESS 06/14/23 Furosemide (Lasix) 20 Mg Tb, 20 MG GT BID, #30 TAB 0 Refills Prov:TIA RAMIREZ MD 07/04/21 Reported Medications Metformin Hydrochloride (Metformin Hcl) 500 Mg Tab, 500 MG PO BID, TAB 08/06/15 Carvedilol (Carvedilol) 6.25 Mg Tab, 1 TAB PO BID, TAB 1 Refill 08/06/15 Aspirin (Aspir-81) 81 Mg Tab, 81 MG PO DAILY, TAB 08/06/15 Ferrous Sulfate (Ferrous Sulfate) 325 Mg Tab, 325 MG PO TID 08/06/15 Information Source: Patient Mode of Arrival: Ambulatory Past Medical History PAST MEDICAL HISTORY: CAD, CHF, DM, High Lipids, HTN Past Medical History (Other): Ventricular bigeminy Surgical History: PTCA SEARCH ENGINEER History: No Pertinent SEARCH ENGINEER History Family History Family History: Unknown Social History Smoker: Non-Smoker Alcohol: Denies ETOH Use Drugs: Denies Drug Use Lives In: Home Constitutional: denies: chills, diaphoresis, fatigue, fever, malaise, sweats, weakness, others EENTM: denies: blurred vision, double vision, ear bleeding, ear discharge, ear drainage, ear pain, ear ringing, eye pain, eye redness, hearing loss, mouth pain, mouth swelling, nasal discharge, nose bleeding, nose congestion, nose pain, photophobia, tearing, throat pain, throat swelling, voice changes, others Respiratory: denies: cough, hemoptysis, orthopnea, SOB at rest, shortness of breath, SOB with excertion, stridor, wheezing, others Cardiovascular: denies: chest pain, dizzy spells, diaphoresis, Dyspnea on exertion, edema, irregular heart beat, left arm pain, lightheadedness, palpitations, PND, syncope, others Gastrointestinal: denies: abdomen distended, abdominal pain, blood streaked bowels, constipated, diarrhea, dysphagia, difficulty swallowing, hematemesis, melena, nausea, poor appetite, poor fluid intake, rectal bleeding, rectal pain, vomiting, others Genitourinary: denies: abnormal vagina bleeding, burning, dyspareunia, dysuria, flank pain, frequency, hematuria, incontinence, pain, , vagina discharge, urgency, others Neurological: denies: dizziness, fainting, headache, left sided numbness, left sided weakness, numbness, paresthesia, pre-existing deficit, right sided numbness, right sided weakness, seizure, speech problems, tingling, tremors, weakness, others Musculoskeletal: reports: others (As stated in HPI) Integumetry: denies: bruises, change in color, change in hair/nails, dryness, laceration, lesions, lumps, rash, wounds, others Allergic/Immunocompromised: denies: Difficulty Healing, Frequent Infections, Hives, Itching, others Hematologic/Lymphatic: denies: anemia, blood clots, easy bleeding, easy bruising, swollen glands, others Endocrine: denies: excessive hunger, excessive sweating, excessive thirst, excessive urination, flushing, intolerance to cold, intolerance to heat, unexplained weight gain, unexplained weight loss, others Psychiatric: denies: anxiety, bipolar disorder, depression, hopeless, panic disorder, schizophrenia, sleepless, suicidal, others Physical Exam General Appearance: No Apparent Distress HEENT: PERRL/EOMI, Pharynx Normal Neck: Full Range of Motion, Non-Tender, Normal Respiratory: Chest Non-Tender, Lungs Clear, No Accessory Muscle Use, No Respiratory Distress, Normal Breath Sounds Cardiovascular: No Murmur, No Gallop, Regular Rate/Rhythm Breast Exam: Deferred Gastrointestinal: NOT DONE Genitalia: Deferred Pelvic: Deferred Rectal: Deferred Extremities: Normal capillary refill, Normal range of motion Musculoskeletal : Extremity Location: Arm (No TTP/skin changes to left arm noted) Neurologic: Alert, No Motor Deficits, Normal Affect, Normal Mood, No Sensory Deficits Cerebellar Function: Normal Reflexes: Normal Skin: Dry, Normal Color, Warm Lymphatic: No Adenopathy Was a procedure done? Was a procedure done?: No Sedation Sedation?: No EKG EKG : Pulse Rate (adult): 96 Cardiac Rhythm: NSR (SR with ventricular bigeminy) Comments 2nd EKG reviewed- Pulse rate - 98 Cardiac rhythm- SR- ventricular bigeminy Differential Diagnosis EXT Differential Diagnosis: Fracture, Myocardial Infarction, Neurovascular injury X-Ray, Labs, Meds, VS Vital Signs Date Time Temp Pulse Resp B/P (MAP) Pulse Ox O2 Delivery O2 Flow Rate FiO2 04/14/24 03:56 97.8 77 18 110/59 (76) 98 97.8 04/14/24 00:38 98 Room Air 0 04/13/24 23:14 96 04/13/24 19:28 97.7 50 16 151/75 (100) 98 Lab Test 04/14/24 01:50 04/13/24 23:56 04/13/24 22:50 Range/Units Troponin I High Sensitivity 25 27 25 </=34 ng/L White Blood Count 6.4 # 4.4-10.8 10^3/uL Red Blood Count 4.80 4.0-5.20 10^6/uL Hemoglobin 12.2 12.2-16.2 g/dL Hematocrit 39.4 36.0-46.0 % Mean Corpuscular Volume 82.0 80.0-100.0 fL Mean Corpuscular Hemoglobin 25.4 L 28.0-32.0 pg Mean Corpuscular Hemoglobin Concent 31.0 L 32.0-36.0 g/dL Red Cell Distribution Width 15.9 H 11.8-14.3 % Platelet Count 220 140-450 10^3/uL Mean Platelet Volume 9.7 6.9-10.8 fL Neutrophils (%) (Auto) 43.3 37.0-80.0 % Lymphocytes (%) (Auto) 46.7 10.0-50.0 % Monocytes (%) (Auto) 8.8 0.0-12.0 % Eosinophils (%) (Auto) 0.9 0.0-7.0 % Basophils (%) (Auto) 0.3 0.0-2.0 % Neutrophils # (Auto) 2.8 1.6-8.6 10 ^3/uL Lymphocytes # (Auto) 3.0 0.4-5.4 10 ^3/uL Monocytes # (Auto) 0.6 0-1.3 10 ^3/uL Eosinophils # (Auto) 0.1 0-0.8 10 ^3/uL Basophils # (Auto) 0 0-0.2 10 ^3/uL Nucleated Red Blood Cells 0.1 % Sodium Level 143 136-145 mmol/L Potassium Level 4.3 3.5-5.1 mmol/L Chloride Level 110 H 98-107 mmol/L Carbon Dioxide Level 28 20-31 mmol/L Anion Gap 5 5-15 Blood Urea Nitrogen 19 9-23 mg/dL Creatinine 1.42 H 0.550-1.02 mg/dL Glomerular Filtration Rate Calc 40 >90 mL/min BUN/Creatinine Ratio 13.4 10.0-20.0 Serum Glucose 119 H 74-106 mg/dL Calcium Level 10.1 8.7-10.4 mg/dL PATIENT: KENNY GERARDO ACCT: [id number] UNIT: [id number] : 1955 LOC: ER ROOM / BED: / AGE / SEX: 69 / F ADM STATUS: REG ER SERVICE 41 ORDERING PHYSICIAN: YOUSIF HUGHES PROCEDURE(s): CXR2 - CHEST TWO VIEWS ROUTINE REASON: chest pain ORDER NUMBER(s): [id number], ACCESSION NUMBER(s): [id number] CHEST RADIOGRAPH Indication: chest pain Technique: Frontal and lateral view of the chest was obtained Comparison: None FINDINGS: Lines and Tubes: None Lungs: Clear Pleura: No effusion. No pneumothorax. Cardiomediastinal contours: Unremarkable Bones: Unremarkable IMPRESSION: No evidence of acute disease. ATED BY: KIERA SONG DO DICTATED DATE/TIME: 04/13/242312 SIGNED BY: KIERA SONG DO SIGNED DATE/TIME: 04/13/242312 CC: CBC reviewed without any significant abnormalities BMP reviewed without any significant abnormalities Troponins reviewed-negative EKG reviewed Second EKG reviewed Chest x-ray reviewed Previous charts were reviewed Patient was asymptomatic during ER visit/prior to discharge Advised to follow up with PCP and commercial shrimping captain in 1-2 days Patient verbalized understanding and agreeable with current plan of care Advised to return to ER immediately if symptoms worsen Images Reviewed?: Images reviewed and evaluated by me Time of 1ST Reevaluation: 23:12 Reevaluation 1ST: Improved Time of 2ND Reevaluation: 00:00 Reevaluation 2ND: Improved Time of 3RD Reevaluation: 03:00 Reevaluation 3RD: Improved Patient Education/Counseling: Diagnosis, Treatment, Prognosis, Need For Follow Up Family Education/Counseling: No Family Present Departure 1 Departure Time of Disposition: 03:12 Impression: Primary Impression: Left arm pain Disposition: 01 HOME / SELF CARE / HOMELESS Condition: Stable Critical Care Note Critical Care Time?: No Stability Stability form required: No Heart Score Heart Score: Heart Score Response (Comments) Value History N/A 0 EKG N/A 0 Age N/A 0 Risk Factors N/A 0 Troponin N/A 0 Total 0 YOUSIF HUGHES Apr 13, 2024 23:14
[2024-04-13] MEDS: AMIODARONE 150mg/100ml PREMIX BAG (BOLUS) IV ONE (23:35)
[2024-04-13 23:44] LABS: Basophils # (auto) 0 10 ^3/uL (0-0.2); Eosinophils # (auto) 0.1 10 ^3/uL (0-0.8); Eosinophils % (auto) 0.9 % (0.0-7.0); Lymphocytes % (auto) 46.7 % (10.0-50.0); Monocytes # (auto) 0.6 10 ^3/uL (0-1.3); Neutrophils # (auto) 2.8 10 ^3/uL (1.6-8.6); Red Cell Distribution Width 15.9 % (11.8-14.3)
[2024-04-13 23:46] LABS: Basophils % (auto) 0.3 % (0.0-2.0); Hematocrit 39.4 % (36.0-46.0); Hemoglobin 12.2 g/dL (12.2-16.2); Mean Corpuscular Hemoglobin 25.4 pg (28.0-32.0); Monocytes % (auto) 8.8 % (0.0-12.0); Neutrophils % (auto) 43.3 % (37.0-80.0); Nucleated Red Blood Cells % 0.1 %; Platelet Count (auto) 220 10^3/uL (140-450); White Blood Cell 6.4 10^3/uL (4.4-10.8)
[2024-04-13 23:53] LABS: Potassium 4.3 mmol/L (3.5-5.1); Sodium 143 mmol/L (136-145)
[2024-04-13 23:54] LABS: Anion Gap 5 (5-15); Carbon Dioxide 28 mmol/L (20-31)
[2024-04-13 23:55] LABS: Calcium 10.1 mg/dL (8.7-10.4)
[2024-04-13 23:59] LABS: BUN/Creatinine Ratio 13.4 (10.0-20.0); Blood Urea Nitrogen 19 mg/dL (9-23)
[2024-04-14 00:02] LABS: Chloride 110 mmol/L (98-107); Glucose 119 mg/dL (74-106)
[2024-04-14 03:56] VITALS: BP 110/59; PULSE 77; RESP 18; TEMP 97.8; O2SAT 98
--- NOTE | 2024-04-14 08:19 | ECG ---
[facility] Test Date: 2024-04-14 Test Time: 02:09:37 Pat Name: KENNY GERARDO Department: er Room: Gender: F Department Sales Manager: am : 1955 Requested By: YOUSIF HUGHES Order Number: [id number] Reading MD: Fran Mac Measurements Intervals [place] Rate: 98 P: 52 MI: 179 QRS: 23 QRSD: 100 T: 257 QT: 376 QTc: 481 Interpretive Statements Sinus rhythm Ventricular bigeminy Nonspecific T abnormalities, lateral leads Baseline wander in lead(s) V6 Electronically Signed On 04-15-2024 10:29:41 PST by Fran Mac Please click the below link to view image of tracing.
--- NOTE | 2024-04-14 08:19 | ECG ---
[facility] Test Date: 2024-04-13 Test Time: 22:35:31 Pat Name: KENNY GERARDO Department: ER Room: Gender: F Realty Loan Specialist: AM : 1955 Requested By: YOUSIF HUGHES Order Number: [id number] Reading MD: Fran Mac Measurements Intervals [place] Rate: 96 P: 49 NM: 177 QRS: 4 QRSD: 99 T: 118 QT: 332 QTc: 420 Interpretive Statements Sinus rhythm Ventricular bigeminy Nonspecific T abnormalities, lateral leads Electronically Signed On 04-15-2024 10:29:24 PST by Fran Mac Please click the below link to view image of tracing.
== END 2024-04-14 03:59 | disposition home or self-care (01) ==
LOC: ER 19:04
DX: M79.602 Pain in left arm (principal); I11.0 Hypertensive heart disease with heart failure; I50.9 Heart failure, unspecified; I25.10 Atherosclerotic heart disease of native coronary artery without angina pectoris; E11.9 Type 2 diabetes mellitus without complications; E78.5 Hyperlipidemia, unspecified; Z95.5 Presence of coronary angioplasty implant and graft; Z88.0 Allergy status to penicillin; Z79.02 Long term (current) use of antithrombotics/antiplatelets; Z79.82 Long term (current) use of aspirin; Z79.84 Long term (current) use of oral hypoglycemic drugs; Z79.899 Other long term (current) drug therapy
CPT/HCPCS: 36415; 71046; 80048; 84484; 85025; 93005

== ENCOUNTER 2024-05-14 14:24 | Inpatient (IN) | payer OTHER ==
[~2024-05-14] VITALS: Ht 162.6 cm; Wt 163.1 kg
--- NOTE | 2024-05-14 15:07 | ECG ---
Test Date: 2024-05-14 Test Time: 14:54:17 Pat Name: KENNY GERARDO Department: ER Room: 0290T Gender: F Kettle Chipper: ENEIDA : 1955 Requested By: DARLENE AWAD Order Number: [id number] Reading MD: Fran Mac Measurements Intervals [place] Rate: 98 P: 25 DC: 173 QRS: -44 QRSD: 104 T: 101 QT: 352 QTc: 450 Interpretive Statements Sinus rhythm Ventricular bigeminy Probable left atrial enlargement Left anterior fascicular block Left ventricular hypertrophy Nonspecific T abnormalities, lateral leads Electronically Signed On 05-15-2024 16:08:27 PST by Fran Mac Please click the below link to view image of tracing.
[2024-05-14 15:51] LABS: Basophils # (auto) 0 10 ^3/uL (0-0.2); Eosinophils # (auto) 0 10 ^3/uL (0-0.8); Monocytes # (auto) 0.4 10 ^3/uL (0-1.3); Nucleated Red Blood Cells % 0.2 %
[2024-05-14 15:53] LABS: Basophils % (auto) 0.5 % (0.0-2.0); Eosinophils % (auto) 0.6 % (0.0-7.0); Hemoglobin 13.6 g/dL (12.2-16.2); Lymphocytes % (auto) 35.4 % (10.0-50.0); Mean Corpuscular Hemoglobin 25.4 pg (28.0-32.0); Mean Corpuscular Hgb Conc. 31.7 g/dL (32.0-36.0); Mean Corpuscular Volume 80.1 fL (80.0-100.0); Monocytes % (auto) 7.8 % (0.0-12.0); Neutrophils # (auto) 3.1 10 ^3/uL (1.6-8.6); Neutrophils % (auto) 55.7 % (37.0-80.0); Platelet Count (auto) 233 10^3/uL (140-450); Red Blood Cells 5.37 10^6/uL (4.0-5.20); Red Cell Distribution Width 14.7 % (11.8-14.3); White Blood Cell 5.6 10^3/uL (4.4-10.8)
[2024-05-14 16:08] LABS: Alanine Aminotransferase 15 U/L (7-40); Albumin 4.6 g/dL (3.2-4.8); Alkaline Phosphatase 76 U/L (46-116); Anion Gap 9 (5-15); Aspartate Aminotransferase 14 U/L (13-40); BUN/Creatinine Ratio 20.7 (10.0-20.0); Carbon Dioxide 25 mmol/L (20-31); Magnesium 2.4 mg/dL (1.6-2.6); Potassium 4.8 mmol/L (3.5-5.1); Sodium 142 mmol/L (136-145)
[2024-05-14 16:09] LABS: Bilirubin, Total 0.4 mg/dL (0.2-1.0); Total Protein 7.4 g/dL (5.7-8.2)
[2024-05-14 16:12] LABS: Blood Urea Nitrogen 30 mg/dL (9-23); Chloride 108 mmol/L (98-107); Glucose 117 mg/dL (74-106)
[2024-05-14 16:44] VITALS: PULSE 47; RESP 16; O2SAT 97
--- NOTE | 2024-05-14 17:15 | ED.PDOC ---
History of Present Illness HPI Comments 69 y/o F, with a Hx of CAD, CHF, DM, HLD, HTN, and PTCA, presents with c/o bradycardia, today. Patient endorses on checking her heart rate at home after feeling "funny" and dizzy, earlier, and noticing it being low within the mid 40's range. She denies any chest pain, shortness of breath, lightheadedness, fe lelia, chills, or other associated symptoms or modifiers at this time. Chief Complaint: Abnormal LAB's Time Seen by MD: 15:00 Primary Care Provider: PHYLLIS Reviewed Notes: Nurses Notes, Medications, Allergies Allergies: Coded Allergies: Penicillins (Verified Adverse Reaction, Severe, 10/18/14) Uncoded Allergies: ADHESIVE (Allergy, Unknown, 12/22/17) Home Meds Active Scripts Diclofenac Sodium (Topical) (Aspercreme Arthritis Pain) 1 % Gel, 1 % EX BID, #1 GEL To apply to chest area for sharp pain twice a day for seven days Prov:VENANCIO SHARP MD 04/09/24 Sacubitril-Valsartan (Entresto 24-26 mg) 1 Tab Tab, 1 TAB PO BID, #60 TAB Prov:EDDIE RICKETTS MD 08/13/23 Empagliflozin (Jardiance) 10 Mg Tab, 10 MG PO DAILY for 60 Days, #60 TAB Prov:EDDIE RICKETST MD 08/13/23 Clopidogrel Bisulfate (CLOPIDOGREL) 75 Mg Tab, 75 MG PO DAILY, #60 TAB Prov:EDDIE RICKETTS MD 08/13/23 Atorvastatin Calcium (ATORVASTATIN CALCIUM) 20 Mg Tab, 40 MG PO HS, #60 TAB Prov:EDDIE RICKETTS MD 08/13/23 Pantoprazole Sodium Sesquihydr (Pantoprazole Sodium Dr) 40 Mg Tab, 40 MG PO DAILY, #60 TAB Prov:VENANCIO SHARP MD 07/02/23 Albuterol Sulfate (Albuterol Sulfate Hfa) 108 Mcg/Act Aer, 1 PUFF IN Q4HPRN PRN, #1 INH As needed for cough nasal congestion shortness of breath or wheeze Prov:VASU NATION Q PRICING MANAGER 06/14/23 Furosemide (Lasix) 20 Mg Tb, 20 MG GT BID, #30 TAB 0 Refills Prov:TIA RAMIREZ MD 07/04/21 Reported Medications Metformin Hydrochloride (Metformin Hcl) 500 Mg Tab, 500 MG PO BID, TAB 08/06/15 Carvedilol (Carvedilol) 6.25 Mg Tab, 1 TAB PO BID, TAB 1 Refill 08/06/15 Aspirin (Aspir-81) 81 Mg Tab, 81 MG PO DAILY, TAB 08/06/15 Ferrous Sulfate (Ferrous Sulfate) 325 Mg Tab, 325 MG PO TID 08/06/15 Information Source: Patient Mode of Arrival: Ambulatory Severity: Moderate Timing: Hours Duration: Since onset Prehospital treatment: None Past Medical History PAST MEDICAL HISTORY: CAD, CHF, DM, High Lipids, HTN Surgical History: PTCA ASSEMBLY STOCK SUPERVISOR History: No Pertinent ASSEMBLY STOCK SUPERVISOR History Family History Family History: Unknown Social History Smoker: Non-Smoker Alcohol: Denies ETOH Use Drugs: Denies Drug Use Lives In: Home Cardiovascular: reports: others (bradycardia) All Other Systems: Reviewed and Negative (negative unless otherwise stated above or in HPI) Physical Exam General Appearance: No Apparent Distress, Normal HEENT: Normal ENT Inspection, Pharynx Normal, TMs Normal Neck: Full Range of Motion, Non-Tender, Normal, Normal Inspection Respiratory: Chest Non-Tender, Lungs Clear, No Accessory Muscle Use, No Respiratory Distress, Normal Breath Sounds Cardiovascular: No Edema, No JVD, No Murmur, No Gallop, Normal Peripheral Pulses, Other (bradycardic ) Breast Exam: Deferred Gastrointestinal: No Organomegaly, Non Tender, No Pulsatile Mass, Normal Bowel Sounds, Soft Genitalia: Deferred Pelvic: Deferred Rectal: Deferred Extremities: No calf tenderness, Normal capillary refill, Normal inspection, Normal range of motion, Non-tender, No pedal edema Musculoskeletal : Apperance: Normal Neurologic: Alert, 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 Was a procedure done?: No EKG EKG : Pulse Rate (adult): 98 Avant: Normal Cardiac Rhythm: NSR Block: None Hypertrophy: LVH ST: Normal Comments ventricular bigeminy, left anterior fascicular block Differential Dx Considerations may include: arrhythmia, bradycardia X-Ray, Labs, Meds, VS Vital Signs Date Time Temp Pulse Resp B/P (MAP) Pulse Ox O2 Delivery O2 Flow Rate FiO2 05/14/24 17:15 98 05/14/24 16:44 47 16 97 Room Air* 0 21 05/14/24 16:40 98.2 47 16 157/45 (82) 97 98.2 05/14/24 15:09 55 05/14/24 15:05 97.6 55 16 169/46 (87) 100 05/14/24 14:54 98 Lab Test 05/14/24 16:50 05/14/24 15:38 Range/Units Troponin I High Sensitivity 24 24 </=34 ng/L White Blood Count 5.6 4.4-10.8 10^3/uL Red Blood Count 5.37 H 4.0-5.20 10^6/uL Hemoglobin 13.6 12.2-16.2 g/dL Hematocrit 43.0 36.0-46.0 % Mean Corpuscular Volume 80.1 80.0-100.0 fL Mean Corpuscular Hemoglobin 25.4 L 28.0-32.0 pg Mean Corpuscular Hemoglobin Concent 31.7 L 32.0-36.0 g/dL Red Cell Distribution Width 14.7 H 11.8-14.3 % Platelet Count 233 140-450 10^3/uL Mean Platelet Volume 8.9 6.9-10.8 fL Neutrophils (%) (Auto) 55.7 37.0-80.0 % Lymphocytes (%) (Auto) 35.4 10.0-50.0 % Monocytes (%) (Auto) 7.8 0.0-12.0 % Eosinophils (%) (Auto) 0.6 0.0-7.0 % Basophils (%) (Auto) 0.5 0.0-2.0 % Neutrophils # (Auto) 3.1 1.6-8.6 10 ^3/uL Lymphocytes # (Auto) 2.0 0.4-5.4 10 ^3/uL Monocytes # (Auto) 0.4 0-1.3 10 ^3/uL Eosinophils # (Auto) 0 0-0.8 10 ^3/uL Basophils # (Auto) 0 0-0.2 10 ^3/uL Nucleated Red Blood Cells 0.2 % D-Dimer, Quantitative 0.48 0.0-0.49 mg/L FEU Sodium Level 142 136-145 mmol/L Potassium Level 4.8 3.5-5.1 mmol/L Chloride Level 108 H 98-107 mmol/L Carbon Dioxide Level 25 20-31 mmol/L Anion Gap 9 5-15 Blood Urea Nitrogen 30 H 9-23 mg/dL Creatinine 1.45 H 0.550-1.02 mg/dL Glomerular Filtration Rate Calc 39 >90 mL/min BUN/Creatinine Ratio 20.7 H 10.0-20.0 Serum Glucose 117 H 74-106 mg/dL Calcium Level 11.0 H 8.7-10.4 mg/dL Phosphorus Level 3.0 2.4-5.1 mg/dL Magnesium Level 2.4 1.6-2.6 mg/dL Total Bilirubin 0.4 0.2-1.0 mg/dL Aspartate Amino Transferase (AST) 14 13-40 U/L Alanine Aminotransferase (ALT) 15 7-40 U/L Alkaline Phosphatase 76 46-116 U/L Total Protein 7.4 5.7-8.2 g/dL Albumin 4.6 3.2-4.8 g/dL X-Ray, Labs, Meds, VS Comment This 69-year-old female presents secondary to feeling weak. She checked her pulse at home, noted a pulse in the low 40s. She became concerned and presented here. Here, the pulse with the machine showed being in the 40s. However, her EKG showed multiple abnormalities including a left anterior fascicular block, ventricular bigeminy, and left ventricular hypertrophy. She continued to feel dizzy and unwell. Her workup otherwise is benign. However, considering her age, comorbidities, tenderness malaise, abnormal EKG, we will admit her for further workup and management. Time of 1ST Reevaluation: 15:30 Reevaluation 1ST: Unchanged Patient Education/Counseling: Diagnosis, Treatment Family Education/Counseling: No Family Present Departure 1 Departure Time of Disposition: 17:34 Impression: Primary Impression: CAD (coronary artery disease) Additional Impressions: Arrhythmia Malaise and fatigue Disposition: ADMITTED INPATIENT Condition: Serious Critical Care Note Critical Care Time?: No Stability Stability form required: No Heart Score Heart Score: Heart Score Response (Comments) Value History N/A 0 EKG Repolarization Disturb 1 Age >65 2 Risk Factors 1 or 2 risk factors 1 Troponin Normal limit 0 Total 4 I personally scribed for DARLENE AWAD MD ([email or web address]) on 05/14/24 at 17:15. Electronically submitted by Willy Osborne [email or web address]). DARLENE AWAD MD May 14, 2024 17:15
[2024-05-14 19:07] LABS: Urine Bacteria None Seen /hpf (None Seen)
[2024-05-14 19:22] LABS: Urine Blood Negative /uL (Negative); Urine Clarity Clear (Clear); Urine Color Light-Yellow (Yellow); Urine Protein, UAD Negative (Negative); Urine Specific Gravity 1.032 (1.001-1.035); Urine Squamous Epithelial Cell FEW /hpf (<5); Urine Urobilinogen Normal (Negative); Urine WBC <1 /hpf (0 - 5)
[2024-05-14 19:30] VITALS: PULSE 79; RESP 16; O2SAT 0
[2024-05-14] MEDS ORDERED: hydrALAZINE HCL 20 MG/ML VL IV PRN (21:00)
[2024-05-14] MEDS ORDERED: HYDROcodone-ACET 5/325MG TAB PO PRN (21:00)
[2024-05-14] MEDS ORDERED: ONDANSETRON HCL 4 MG/2 ML VIAL IV PRN (21:00)
[2024-05-14] MEDS ORDERED: MELATONIN 5 MG TAB PO PRN (21:00)
--- NOTE | 2024-05-14 21:09 | DVH ---
EXAM: XY CHEST XRAY 1 VIEW CLINICAL HISTORY: admission TECHNIQUE: Single AP view of the chest WID: COMPARISON: XY CHEST PORTABLE on DOS: 04/07/24 FINDINGS: Lines and tubes: None Chest: The heart size and pulmonary vasculature is within normal limits. No pleural effusion, pneumothorax, or consolidation. The osseous structures are grossly intact. IMPRESSION: No acute cardiopulmonary abnormality.
[2024-05-14 22:57] VITALS: BP 145/60; PULSE 79; PULSE 80; RESP 18; TEMP 97.8; O2SAT 98
[2024-05-14 23:00] VITALS: BP 145/60; PULSE 75; RESP 18; TEMP 97.6; O2SAT 97
[2024-05-15] VITALS (8 sets, daily range): BP systolic 102–154; BP diastolic 38–84; PULSE 64–92; RESP 16–18; TEMP 97.5–98.3; O2SAT 97–100
--- NOTE | 2024-05-15 00:29 | DVHHP2 ---
Admitting Diagnosis: Ventricular Bigeminy , Hypercalcemia History of Present Illness History Source: Patient Exam Limitations: No limitations HPI Mrs. Katy Sloan is a 69 yo female with a history of CAD, CHF, DM, HLD, HTN, and PTCA, who presents with a chief complaint of low heart rate. Patient endorses on checking her heart rate at home after feeling "funny" and dizzy, earlier, and noticing it being low within the mid 40's range. She denies any chest pain, shortness of breath, lightheadedness, fever, chills. Patient found to have Calcium 11, BUN 30/creatinine 1.45, cardiac rhythm ventricular bigeminy. Patient admitted for further evaluation. Home Meds Active Scripts Diclofenac Sodium (Topical) (Aspercreme Arthritis Pain) 1 % Gel, 1 % EX BID, #1 GEL To apply to chest area for sharp pain twice a day for seven days Prov:VENANCIO SHARP MD 04/09/24 Sacubitril-Valsartan (Entresto 24-26 mg) 1 Tab Tab, 1 TAB PO BID, #60 TAB Prov:EDDIE RICKETTS MD 08/13/23 Empagliflozin (Jardiance) 10 Mg Tab, 10 MG PO DAILY for 60 Days, #60 TAB Prov:EDDIE RICKETTS MD 08/13/23 Clopidogrel Bisulfate (CLOPIDOGREL) 75 Mg Tab, 75 MG PO DAILY, #60 TAB Prov:EDDIE RICKETTS MD 08/13/23 Atorvastatin Calcium (ATORVASTATIN CALCIUM) 20 Mg Tab, 40 MG PO HS, #60 TAB Prov:EDDIE RICKETTS MD 08/13/23 Pantoprazole Sodium Sesquihydr (Pantoprazole Sodium Dr) 40 Mg Tab, 40 MG PO DAILY, #60 TAB Prov:VENANCIO SHARP MD 07/02/23 Albuterol Sulfate (Albuterol Sulfate Hfa) 108 Mcg/Act Aer, 1 PUFF IN Q4HPRN PRN, #1 INH As needed for cough nasal congestion shortness of breath or wheeze Prov:VASU N[place] Q APPRENTICE FUNERAL DIRECTOR 06/14/23 Furosemide (Lasix) 20 Mg Tb, 20 MG GT BID, #30 TAB 0 Refills Prov:TIA RAMIREZ MD 07/04/21 Reported Medications Aspirin (Aspir-81) 81 Mg Tab, 81 MG PO DAILY, TAB 08/06/15 Discontinued Reported Medications Metformin Hydrochloride (Metformin Hcl) 500 Mg Tab, 500 MG PO BID, TAB 08/06/15 Carvedilol (Carvedilol) 6.25 Mg Tab, 1 TAB PO BID, TAB 1 Refill 08/06/15 Ferrous Sulfate (Ferrous Sulfate) 325 Mg Tab, 325 MG PO TID 08/06/15 Past Medical History Cardiac: CAD, CHF, HTN, Hyperlipidemia Pulmonary: No pertinent Hx Central Nervous System: No pertinent Hx GI: No pertinent Hx Hemotology/Oncology: No pertinent Hx Hepatobiliary: No pertinent Hx Psychiatric: No pertinent Hx Musculoskeletal: No pertinent Hx Rheumotologic: No pertinent Hx Infectious Disease: No peritnent Hx ENT: No pertinent Hx Renal/: No pertinent Hx Endocrine: NIDDM Dermatology: No pertinent Hx Past Surgical History: PTCA Patient Family History: Malignant neoplasm of breast G8 MOTHER Smoker: No Hx (Negative) Alocohol: None Drugs: None Lives with: With family Domestic Violence: Neg Review of Systems Constitutional: No symptom reported Ears, Nose, & Throat: No symptom reported Eyes: No symptom reported Pulmonary/Respiratory: No symptom reported Cardiovascular: No symptom reported Gastrointestinal: No symptom reported Genitourinary: No symptom reported Musculoskeletal: No symptom reported Skin: No symptom reported Psychiatric: No symptom reported Endocrine: No symptom reported Hemotologic/Lymphatic: No symptom reported H&P Exam Vital Signs Vital Signs Date Time Temp Pulse Resp B/P (MAP) Pulse Ox O2 Delivery O2 Flow Rate FiO2 05/14/24 22:57 79 18 Room Air* 0 21 05/14/24 22:00 97.5 148/67 (94) 98 97.5 General Appeara: Well developed, Well nourished, Normal Appearance Head Exam: Normal inspection Neck Exam: Normal inspection, Non-tender, Normal alignment Eye Exam: bilateral eye Normal inspection, bilateral eye PERRL, bilateral eye EOMI Ear Exam: bilateral ear Auricle normal Nasal Exam: Normal inspection Mouth: Normal Inspection Pulmonary/Respiratory: Normal inspection, Normal breath sounds, Chest non- tender, Lungs clear Cardiovascular/Chest: Normal inspection, Regular rate, Normal Rhythm Peripheral Pulses: 2+ dorsalis pedis (R), 2+ dorsalis pedis (L), 2+ Radial (R), 2+ Radial (L) Abdominal Exam: Normal bowel sounds, Soft, No tenderness Rectal Exam: Deferred Back Exam: Normal inspection Pelvic Exam: Not done NATURAL SCIENCES MANAGER Exam: Normal hearing, Normal speech, PERRL Motor/Sensory: Normal sensory function, Normal motor function Neuro/Mental St: Alert, Oriented Appearance: Appropriate appearance, Appropriate insight Eye contact/ Speech: Cooperative, Good eye contact, Normal speech Thoughts/Psych: Normal thought pattern Skin Exam: Normal inspection, Normal color, Warm/dry Labs/Xrays Labs Test 05/14/24 21:55 05/14/24 18:54 05/14/24 18:50 05/14/24 18:49 Range/Units Troponin I High Sensitivity 27 </=34 ng/L POC Glucose 106 70-106 mg/dl Urine Color Light-yellow Yellow Urine Clarity Clear Clear Urine pH 5.0 5.0-9.0 Urine Specific [place] 1.032 1.001-1.035 Urine Protein Negative Negative Urine Ketones Trace Negative Urine Blood Negative Negative /uL Urine Nitrite Negative Negative Urine Bilirubin Negative Negative Urine Urobilinogen Normal Negative mg/dL Urine Leukocyte Esterase Negative Negative /uL Urine RBC 1 0 - 4 /hpf Urine WBC <1 0 - 5 /hpf Urine Squamous Epithelial Cells Few <5 /hpf Urine Bacteria None seen None Seen /hpf Urine Glucose 4+ H Normal mg/dL Magnesium Level 2.4 1.6-2.6 mg/dL Test 05/14/24 15:38 Range/Units White Blood Count 5.6 4.4-10.8 10^3/uL Red Blood Count 5.37 H 4.0-5.20 10^6/uL Hemoglobin 13.6 12.2-16.2 g/dL Hematocrit 43.0 36.0-46.0 % Mean Corpuscular Volume 80.1 80.0-100.0 fL Mean Corpuscular Hemoglobin 25.4 L 28.0-32.0 pg Mean Corpuscular Hemoglobin Concent 31.7 L 32.0-36.0 g/dL Red Cell Distribution Width 14.7 H 11.8-14.3 % Platelet Count 233 140-450 10^3/uL Mean Platelet Volume 8.9 6.9-10.8 fL Neutrophils (%) (Auto) 55.7 37.0-80.0 % Lymphocytes (%) (Auto) 35.4 10.0-50.0 % Monocytes (%) (Auto) 7.8 0.0-12.0 % Eosinophils (%) (Auto) 0.6 0.0-7.0 % Basophils (%) (Auto) 0.5 0.0-2.0 % Neutrophils # (Auto) 3.1 1.6-8.6 10 ^3/uL Lymphocytes # (Auto) 2.0 0.4-5.4 10 ^3/uL Monocytes # (Auto) 0.4 0-1.3 10 ^3/uL Eosinophils # (Auto) 0 0-0.8 10 ^3/uL Basophils # (Auto) 0 0-0.2 10 ^3/uL Nucleated Red Blood Cells 0.2 % D-Dimer, Quantitative 0.48 0.0-0.49 mg/L FEU Sodium Level 142 136-145 mmol/L Potassium Level 4.8 3.5-5.1 mmol/L Chloride Level 108 H 98-107 mmol/L Carbon Dioxide Level 25 20-31 mmol/L Anion Gap 9 5-15 Blood Urea Nitrogen 30 H 9-23 mg/dL Creatinine 1.45 H 0.550-1.02 mg/dL Glomerular Filtration Rate Calc 39 >90 mL/min BUN/Creatinine Ratio 20.7 H 10.0-20.0 Serum Glucose 117 H 74-106 mg/dL Calcium Level 11.0 H 8.7-10.4 mg/dL Phosphorus Level 3.0 2.4-5.1 mg/dL Total Bilirubin 0.4 0.2-1.0 mg/dL Aspartate Amino Transferase (AST) 14 13-40 U/L Alanine Aminotransferase (ALT) 15 7-40 U/L Alkaline Phosphatase 76 46-116 U/L B-Type Natriuretic Peptide 36.04 0-100 pg/mL Total Protein 7.4 5.7-8.2 g/dL Albumin 4.6 3.2-4.8 g/dL Assessment/Plan Problem List: (1) Ventricular bigeminy (2) Hypercalcemia (3) MELBA (acute kidney injury) Plan This is a 69 yo female with known history of CAD, CHF, PTCA, DM2, hyperlipidemia, hypertension who presents with low heart rate , fatigue. 1. Ventricular Bigeminy 2. Hypercalcemia 3. Acute Kidney Injury PLAN: Admit Telemetry Cardiology consultation, 2D echocardiogram DVT ppx Lovenox GI ppx Pepcid Monitor BMP, Mg Discussed all above with patient who verbalizes agreement and understanding of care plan. All questions were answered. Discussed assessment and care plan with supervising MD. Plan discussed with: Patient, Other Code Visit Code Visit Total Time (mins): 45 Additional Comments Additional Comments Additional Comments 69-year-old female with a known history of CAD status post PCI, ischemic cardiomyopathy with EF of 30-35%, presented to the hospital with a low heart rate of 40s although she is on carvedilol 6.25 mg p.o. twice a day found to have 1. Dizziness with a low heart rate suspect symptomatic bradycardia secondary to beta-malika, lower the dose of beta-malika 2. Ventricular bigeminy and PVCs 3. Ischemic cardiomyopathy with EF of 30-35% 4. CAD status post PCI 5. Hypertension 6. Diabetes mellitus type 2 -decreased the dose of beta-malika, follow cardiology recommendation -tele monitor for another 24 hours, discharge plan. CAROLE SIMON May 15, 2024 00:29 EDDIE RICKETTS MD May 15, 2024 15:16
[2024-05-15] MEDS: SODIUM CHLORIDE 0.9% 1,000 ML IV ONE (05:57)
[2024-05-15 06:51] LABS: Anion Gap 8 (5-15); Carbon Dioxide 26 mmol/L (20-31); Potassium 4.2 mmol/L (3.5-5.1); Sodium 142 mmol/L (136-145)
[2024-05-15 06:52] LABS: Calcium 10.2 mg/dL (8.7-10.4)
[2024-05-15 06:56] LABS: Glucose 93 mg/dL (74-106)
[2024-05-15 06:57] LABS: Blood Urea Nitrogen 22 mg/dL (9-23); Magnesium 2.3 mg/dL (1.6-2.6)
[2024-05-15 06:58] LABS: Chloride 108 mmol/L (98-107)
[2024-05-15] MEDS: ENOXAPARIN SOD 40 MG/0.4 ML SYRINGE SC SCH (09:29)
[2024-05-15] MEDS: PANTOPRAZOLE 40 MG TAB PO SCH (09:30)
[2024-05-15] MEDS ORDERED: FAMOTIDINE 20 MG TAB PO SCH (10:00)
--- NOTE | 2024-05-15 11:42 | DVHINCON2 ---
Date of service: May 15, 2024 History of Present Illness Mrs. Katy Sloan is a 69 yo female with a history of CAD, CHF, DM, HLD, HTN, and PTCA, who presents with a chief complaint of low heart rate. Patient endorses on checking her heart rate at home after feeling "funny" and dizzy, earlier, and noticing it being low within the mid 40's range. She denies any chest pain, shortness of breath, lightheadedness, fever, chills. Patient found to have Calcium 11, BUN 30/creatinine 1.45, cardiac rhythm ventricular bigeminy. Patient admitted for further evaluation. Home Meds Active Scripts Diclofenac Sodium (Topical) (Aspercreme Arthritis Pain) 1 % Gel, 1 % EX BID, #1 GEL To apply to chest area for sharp pain twice a day for seven days Prov:VENANCIO SHARP MD 04/09/24 Sacubitril-Valsartan (Entresto 24-26 mg) 1 Tab Tab, 1 TAB PO BID, #60 TAB Prov:EDDIE RICKETTS MD 08/13/23 Empagliflozin (Jardiance) 10 Mg Tab, 10 MG PO DAILY for 60 Days, #60 TAB Prov:EDDIE RICKETTS MD 08/13/23 Clopidogrel Bisulfate (CLOPIDOGREL) 75 Mg Tab, 75 MG PO DAILY, #60 TAB Prov:EDDIE RICKETTS MD 08/13/23 Atorvastatin Calcium (ATORVASTATIN CALCIUM) 20 Mg Tab, 40 MG PO HS, #60 TAB Prov:EDDIE RICKETTS MD 08/13/23 Pantoprazole Sodium Sesquihydr (Pantoprazole Sodium Dr) 40 Mg Tab, 40 MG PO DAILY, #60 TAB Prov:VENANCIO SHARP MD 07/02/23 Albuterol Sulfate (Albuterol Sulfate Hfa) 108 Mcg/Act Aer, 1 PUFF IN Q4HPRN PRN, #1 INH As needed for cough nasal congestion shortness of breath or wheeze Prov:VASU NATION Q HAND LAUNDERER 06/14/23 Furosemide (Lasix) 20 Mg Tb, 20 MG GT BID, #30 TAB 0 Refills Prov:TIA RAMIREZ MD 07/04/21 Reported Medications Aspirin (Aspir-81) 81 Mg Tab, 81 MG PO DAILY, TAB 08/06/15 Discontinued Reported Medications Metformin Hydrochloride (Metformin Hcl) 500 Mg Tab, 500 MG PO BID, TAB 08/06/15 Carvedilol (Carvedilol) 6.25 Mg Tab, 1 TAB PO BID, TAB 1 Refill 08/06/15 Ferrous Sulfate (Ferrous Sulfate) 325 Mg Tab, 325 MG PO TID 08/06/15 Past Medical History reviewed Family History: Malignant neoplasm of breast G8 MOTHER Allergies: Coded Allergies: Penicillins (Verified Adverse Reaction, Severe, 10/18/14) Uncoded Allergies: ADHESIVE (Allergy, Unknown, 12/22/17) Home Meds Active Scripts Diclofenac Sodium (Topical) (Aspercreme Arthritis Pain) 1 % Gel, 1 % EX BID, #1 GEL To apply to chest area for sharp pain twice a day for seven days Prov:VENANCIO SHARP MD 04/09/24 Sacubitril-Valsartan (Entresto 24-26 mg) 1 Tab Tab, 1 TAB PO BID, #60 TAB Prov:EDDIE RICKETTS MD 08/13/23 Empagliflozin (Jardiance) 10 Mg Tab, 10 MG PO DAILY for 60 Days, #60 TAB Prov:EDDIE RICKETTS MD 08/13/23 Clopidogrel Bisulfate (CLOPIDOGREL) 75 Mg Tab, 75 MG PO DAILY, #60 TAB Prov:EDDIE RICKETTS MD 08/13/23 Atorvastatin Calcium (ATORVASTATIN CALCIUM) 20 Mg Tab, 40 MG PO HS, #60 TAB Prov:EDDIE RICKETTS MD 08/13/23 Pantoprazole Sodium Sesquihydr (Pantoprazole Sodium Dr) 40 Mg Tab, 40 MG PO DA TACHO, #60 TAB Prov:VENANCIO SHARP MD 07/02/23 Albuterol Sulfate (Albuterol Sulfate Hfa) 108 Mcg/Act Aer, 1 PUFF IN Q4HPRN PRN, #1 INH As needed for cough nasal congestion shortness of breath or wheeze Prov:VASU NATION Q HAND LAUNDERER 06/14/23 Furosemide (Lasix) 20 Mg Tb, 20 MG GT BID, #30 TAB 0 Refills Prov:TIA RAMIREZ MD 07/04/21 Reported Medications Aspirin (Aspir-81) 81 Mg Tab, 81 MG PO DAILY, TAB 08/06/15 Discontinued Reported Medications Metformin Hydrochloride (Metformin Hcl) 500 Mg Tab, 500 MG PO BID, TAB 08/06/15 Carvedilol (Carvedilol) 6.25 Mg Tab, 1 TAB PO BID, TAB 1 Refill 08/06/15 Ferrous Sulfate (Ferrous Sulfate) 325 Mg Tab, 325 MG PO TID 08/06/15 Current Medications Current Medications Medications (Trade) Dose Ordered Sig/Xenia Route PRN Reason Start Time Stop Time Status Last Admin Ondansetron HCl (Zofran) 4 mg Q6HPRN PRN IV NAUSEA / VOMITING 05/14/24 21:00 Hydralazine HCl (Apresoline Injection) 10 mg Q6HPRN PRN IV SBP>160 or DBP>105 05/14/24 21:00 Enoxaparin Sodium (Lovenox) 40 mg DAILY SC 05/15/24 10:00 05/15/24 09:29 Melatonin (Melatonin) 5 mg ONCE@2200 PRN PO FOR INSOMNIA 05/14/24 21:00 Famotidine (Pepcid Tablet) 20 mg DAILY PO 05/15/24 10:00 05/14/24 21:04 DC Acetaminophen (Tylenol Tablet) 650 mg Q6HPRN PRN PO TEMP GREATER THAN 100.4 05/14/24 21:00 Acetaminophen/ Hydrocodone Bitart (Vestal 5/325MG Tab) 1 tab Q6HPRN PRN PO PAIN SCALE 1 THRU 6 05/14/24 21:00 Pantoprazole Sodium (Protonix Tablet) 40 mg DAILY PO 05/15/24 10:00 05/15/24 09:30 Review of Systems 10 pt ros otherwise negative Vital Signs Vital Signs Date Time Temp Pulse Resp B/P (MAP) Pulse Ox O2 Delivery O2 Flow Rate FiO2 05/15/24 09:00 98.3 71 18 109/61 (77) 100 98.3 05/15/24 08:00 Room Air* 0 21 Physical Exam nad s1 s2 rrr ctab soft nt/nd no edema Labs/Diagnostic Data Labs Test 05/15/24 05:50 05/14/24 18:54 05/14/24 18:50 05/14/24 15:38 Range/Units Sodium Level 142 136-145 mmol/L Potassium Level 4.2 3.5-5.1 mmol/L Chloride Level 108 H 98-107 mmol/L Carbon Dioxide Level 26 20-31 mmol/L Anion Gap 8 5-15 Blood Urea Nitrogen 22 9-23 mg/dL Creatinine 1.16 H 0.550-1.02 mg/dL Glomerular Filtration Rate Calc 51 >90 mL/min BUN/Creatinine Ratio 19.0 10.0-20.0 Serum Glucose 93 74-106 mg/dL Calcium Level 10.2 8.7-10.4 mg/dL Magnesium Level 2.3 1.6-2.6 mg/dL Troponin I High Sensitivity 28 </=34 ng/L Thyroid Stimulating Hormone (TSH) 0.95 0.55-4.78 uIU/mL POC Glucose 106 70-106 mg/dl Urine Color Light-yellow Yellow Urine Clarity Clear Clear Urine pH 5.0 5.0-9.0 Urine Specific [place] 1.032 1.001-1.035 Urine Protein Negative Negative Urine Ketones Trace Negative Urine Blood Negative Negative /uL Urine Nitrite Negative Negative Urine Bilirubin Negative Negative Urine Urobilinogen Normal Negative mg/dL Urine Leukocyte Esterase Negative Negative /uL Urine RBC 1 0 - 4 /hpf Urine WBC <1 0 - 5 /hpf Urine Squamous Epithelial Cells Few <5 /hpf Urine Bacteria None seen None Seen /hpf Urine Glucose 4+ H Normal mg/dL White Blood Count 5.6 4.4-10.8 10^3/uL Red Blood Count 5.37 H 4.0-5.20 10^6/uL Hemoglobin 13.6 12.2-16.2 g/dL Hematocrit 43.0 36.0-46.0 % Mean Corpuscular Volume 80.1 80.0-100.0 fL Mean Corpuscular Hemoglobin 25.4 L 28.0-32.0 pg Mean Corpuscular Hemoglobin Concent 31.7 L 32.0-36.0 g/dL Red Cell Distribution Width 14.7 H 11.8-14.3 % Platelet Count 233 140-450 10^3/uL Mean Platelet Volume 8.9 6.9-10.8 fL Neutrophils (%) (Auto) 55.7 37.0-80.0 % Lymphocytes (%) (Auto) 35.4 10.0-50.0 % Monocytes (%) (Auto) 7.8 0.0-12.0 % Eosinophils (%) (Auto) 0.6 0.0-7.0 % Basophils (%) (Auto) 0.5 0.0-2.0 % Neutrophils # (Auto) 3.1 1.6-8.6 10 ^3/uL Lymphocytes # (Auto) 2.0 0.4-5.4 10 ^3/uL Monocytes # (Auto) 0.4 0-1.3 10 ^3/uL Eosinophils # (Auto) 0 0-0.8 10 ^3/uL Basophils # (Auto) 0 0-0.2 10 ^3/uL Nucleated Red Blood Cells 0.2 % D-Dimer, Quantitative 0.48 0.0-0.49 mg/L FEU Phosphorus Level 3.0 2.4-5.1 mg/dL Total Bilirubin 0.4 0.2-1.0 mg/dL Aspartate Amino Transferase (AST) 14 13-40 U/L Alanine Aminotransferase (ALT) 15 7-40 U/L Alkaline Phosphatase 76 46-116 U/L B-Type Natriuretic Peptide 36.04 0-100 pg/mL Total Protein 7.4 5.7-8.2 g/dL Albumin 4.6 3.2-4.8 g/dL Assessment bigeminal PVCs bradycardia hx of ICM with low EF , NYHA class III CKD cad s/p pci Plan/Recommendation fu with dr lopez consider ICD with her cards pt is aware of this rec with her cards holding BB may increase PVCs home devic is likely miscounting her pulse EF <35% check echo Plan discussed with: Patient SARAH ANAYA MD May 15, 2024 11:42
[2024-05-15] MEDS: ACETAMINOPHEN 325 MG TAB PO PRN (14:58)
[2024-05-15] MEDS: CARVEDILOL 3.125 MG TAB PO SCH (21:25)
[2024-05-16] VITALS (8 sets, daily range): BP systolic 133–155; BP diastolic 46–81; PULSE 68–87; RESP 14–20; TEMP 97.1–98.6; O2SAT 92–100
[2024-05-16 06:24] LABS: Potassium 4.2 mmol/L (3.5-5.1); Sodium 139 mmol/L (136-145)
[2024-05-16 06:25] LABS: Anion Gap 4 (5-15); Calcium 9.9 mg/dL (8.7-10.4); Carbon Dioxide 25 mmol/L (20-31)
[2024-05-16 06:30] LABS: BUN/Creatinine Ratio 12.7 (10.0-20.0); Blood Urea Nitrogen 14 mg/dL (9-23); Chloride 110 mmol/L (98-107)
[2024-05-16 06:31] LABS: Glucose 109 mg/dL (74-106)
--- NOTE | 2024-05-16 16:28 | DVHDS2 ---
Discharge Summary Date of Admission May 14, 2024 at 20:49 Date of Discharge: May 16, 2024 Labs/Diagnostic Data: Laboratory Results Test 05/16/24 05:43 05/15/24 13:07 05/15/24 05:50 05/14/24 18:54 Sodium Level 139 mmol/L (136-145) Potassium Level 4.2 mmol/L (3.5-5.1) Chloride Level 110 mmol/L (98-107) Carbon Dioxide Level 25 mmol/L (20-31) Anion Gap 4 (5-15) Blood Urea Nitrogen 14 mg/dL (9-23) Creatinine 1.10 mg/dL (0.550-1.02) Glomerular Filtration Rate Calc 55 mL/min (>90) BUN/Creatinine Ratio 12.7 (10.0-20.0) Serum Glucose 109 mg/dL (74-106) Calcium Level 9.9 mg/dL (8.7-10.4) Troponin I High Sensitivity 22 ng/L (</=34) Magnesium Level 2.3 mg/dL (1.6-2.6) Thyroid Stimulating Hormone (TSH) 0.95 uIU/mL (0.55-4.78) POC Glucose 106 mg/dl (70-106) Test 05/14/24 18:50 05/14/24 15:38 Urine Color Light-yellow (Yellow) Urine Clarity Clear (Clear) Urine pH 5.0 (5.0-9.0) Urine Specific [employer] 1.032 (1.001-1.035) Urine Protein Negative (Negative) Urine Ketones Trace (Negative) Urine Blood Negative /uL (Negative) Urine Nitrite Negative (Negative) Urine Bilirubin Negative (Negative) Urine Urobilinogen Normal mg/dL (Negative) Urine Leukocyte Esterase Negative /uL (Negative) Urine RBC 1 /hpf (0 - 4) Urine WBC <1 /hpf (0 - 5) Urine Squamous Epithelial Cells Few /hpf (<5) Urine Bacteria None seen /hpf (None Seen) Urine Glucose 4+ mg/dL (Normal) White Blood Count 5.6 10^3/uL (4.4-10.8) Red Blood Count 5.37 10^6/uL (4.0-5.20) Hemoglobin 13.6 g/dL (12.2-16.2) Hematocrit 43.0 % (36.0-46.0) Mean Corpuscular Volume 80.1 fL (80.0-100.0) Mean Corpuscular Hemoglobin 25.4 pg (28.0-32.0) Mean Corpuscular Hemoglobin Concent 31.7 g/dL (32.0-36.0) Red Cell Distribution Width 14.7 % (11.8-14.3) Platelet Count 233 10^3/uL (140-450) Mean Platelet Volume 8.9 fL (6.9-10.8) Neutrophils (%) (Auto) 55.7 % (37.0-80.0) Lymphocytes (%) (Auto) 35.4 % (10.0-50.0) Monocytes (%) (Auto) 7.8 % (0.0-12.0) Eosinophils (%) (Auto) 0.6 % (0.0-7.0) Basophils (%) (Auto) 0.5 % (0.0-2.0) Neutrophils # (Auto) 3.1 10 ^3/uL (1.6-8.6) Lymphocytes # (Auto) 2.0 10 ^3/uL (0.4-5.4) Monocytes # (Auto) 0.4 10 ^3/uL (0-1.3) Eosinophils # (Auto) 0 10 ^3/uL (0-0.8) Basophils # (Auto) 0 10 ^3/uL (0-0.2) Nucleated Red Blood Cells 0.2 % D-Dimer, Quantitative 0.48 mg/L FEU (0.0-0.49) Phosphorus Level 3.0 mg/dL (2.4-5.1) Total Bilirubin 0.4 mg/dL (0.2-1.0) Aspartate Amino Transferase (AST) 14 U/L (13-40) Alanine Aminotransferase (ALT) 15 U/L (7-40) Alkaline Phosphatase 76 U/L (46-116) B-Type Natriuretic Peptide 36.04 pg/mL (0-100) Total Protein 7.4 g/dL (5.7-8.2) Albumin 4.6 g/dL (3.2-4.8) Other Laboratory Tests 05/16/24 05:43 05/14/24 15:38 Brief Hx & Hospital Course: 69-year-old female with a known history of CAD status post PCI, ischemic cardiomyopathy with EF of 30-35%, presented to the hospital with a low heart rate of 40s although she is on carvedilol 6.25 mg p.o. twice a day found to have dizziness with the bradycardia. Patient was beta-malika was stopped. Patient was does have ischemic cardiomyopathy with the EF of 30-35%. Both Dr. Crawford as well as Dr. Mac saw the patient. Recommended to hold beta-malika. Patient was currently understanding and agreeable to plan. Please outpatient follow up with PCP has been as Dr. Mac. Condition at Discharge: Stable Final Diagnosis/Problems List 69-year-old female with a known history of CAD status post PCI, ischemic cardiomyopathy with EF of 30-35%, presented to the hospital with a low heart rate of 40s although she is on carvedilol 6.25 mg p.o. twice a day found to have 1. Dizziness with a low heart rate suspect symptomatic bradycardia secondary to beta-malika, lower the dose of beta-malika 2. Ventricular bigeminy and PVCs 3. Ischemic cardiomyopathy with EF of 30-35% 4. CAD status post PCI 5. Hypertension 6. Diabetes mellitus type 2 Discharge Disposition: Home with Health Services SNF Discharge Will this Physician continue t: No Discharge Instruct/Medications Diet: Cardiac 2g Na,low cholest Diet comment: 2000 ADA diet Activity: No Restrictions, As Tolerated Follow Up/Referral: Follow up with the PCP in 1-2 weeks Follow up with in one week Medications: Resume home medication except carvedilol Discharge Statement: "Patient was advised to return to the ER or call 911 if any headaches, dizziness, shortness of breath, chest pain, abdominal pain, bleeding, fevers, or worsening of medical condition. Patient was counseled about treatment plan, medications, possible side effects, patientverbalized understanding. All questions were answered to the best of my ability. This discharge took greater then 30 minutes in planning, reviewing documentation, counseling the patient, and discussing with other team members." ASSESSMENT ASSESSMENT Assessment 69-year-old female with a known history of CAD status post PCI, ischemic cardiomyopathy with EF of 30-35%, presented to the hospital with a low heart rate of 40s although she is on carvedilol 6.25 mg p.o. twice a day found to have 1. Dizziness with a low heart rate suspect symptomatic bradycardia secondary to beta-malika, lower the dose of beta-malika 2. Ventricular bigeminy and PVCs 3. Ischemic cardiomyopathy with EF of 30-35% 4. CAD status post PCI 5. Hypertension 6. Diabetes mellitus type 2 Date of Service: May 16, 2024 Billing Provider: EDDIE RICKETTS MD Common Visit Codes: NOT BILLABLE EDDIE RICKETTS MD May 16, 2024 16:28
--- NOTE | 2024-05-16 19:31 | DVHPN2 ---
Consult Progress Note Date Seen: May 16, 2024 Subjective Patient reports: No new complaints (Asked to see patient prior to discharge. Patient has concerns about bradycardia however she has not taken beta blockers and her heart rate over the last 24 hours has been consistently above 75 per.) Objective vital signs Vital Sign Date Time Temp Pulse Resp B/P (MAP) Pulse Ox O2 Delivery O2 Flow Rate FiO2 05/16/24 18:55 98.6 87 20 98 05/16/24 17:00 148/70 (96) 05/16/24 08:00 Room Air* 0 21 Total Intake and Output 05/15/24 05/15/24 05/16/24 15:00 23:00 07:00 Intake Total 1300 ml 300 ml Balance 1300 ml 300 ml medications Current Medications Medications Dose Ordered Sig/Xenia Route Start Time Stop Time Status Last Admin Dose Admin Ondansetron HCl 4 mg Q6HPRN PRN IV 05/14/24 21:00 Hydralazine HCl 10 mg Q6HPRN PRN IV 05/14/24 21:00 Enoxaparin Sodium 40 mg DAILY SC 05/15/24 10:00 05/16/24 09:55 40 MG Melatonin 5 mg ONCE@2200 PRN PO 05/14/24 21:00 Acetaminophen 650 mg Q6HPRN PRN PO 05/14/24 21:00 05/15/24 14:58 650 MG Acetaminophen/ Hydrocodone Bitart 1 tab Q6HPRN PRN PO 05/14/24 21:00 Pantoprazole Sodium 40 mg DAILY PO 05/15/24 10:00 05/16/24 09:54 40 MG Carvedilol 3.125 mg Q12HR PO 05/15/24 22:00 Examination: GENERAL:Normal, HEENT:Normal, NECK:Normal, LUNGS:Normal, CVS:Normal ( Few PVCs on monitor.), ABDOMEN:Normal, MSK:Normal, SKIN:Normal, NEURO:Normal, :Normal laboratory and microbiology Laboratory Tests 05/16/24 05:43 05/14/24 15:38 Test 05/16/24 05:43 Range/Units Serum Glucose 109 H 74-106 mg/dL Problem List/Assessment/Plan Problem List/Assessment/Plan Known history of cardiomyopathy however patient is stable and asymptomatic. I have discussed with her that I will see her tomorrow morning in the office place an event monitor and re-evaluate her list of medications. Patient is in agreement and will be discharged tonight Plan discussed with: Patient Date of Service: May 16, 2024 Billing Provider: KOFI LENNON Sr., MD Cardiology Common Codes: [id number] INP/OBS CARE(Mod) KOFI LENNON Sr., MD May 16, 2024 19:31
[2024-05-17 09:00] VITALS: BP 119/54; PULSE 74; RESP 17; TEMP 98; O2SAT 97
== END 2024-05-16 20:20 | disposition home health service (06) | DRG 308 ==
LOC: ER 14:24 → TELE 20:49 → TELE-WESTW 21:37
PROVIDERS: ADMIT Nurse Practitioner Family; ATTEND Nurse Practitioner Family
DX: I49.3 Ventricular premature depolarization (principal); N17.0 Acute kidney failure with tubular necrosis; I13.0 Hypertensive heart and chronic kidney disease with heart failure and stage 1 through stage 4 chronic kidney disease, or unspecified chronic kidney disease; E83.52 Hypercalcemia; I25.10 Atherosclerotic heart disease of native coronary artery without angina pectoris; I25.5 Ischemic cardiomyopathy; N18.9 Chronic kidney disease, unspecified; E78.5 Hyperlipidemia, unspecified; I50.9 Heart failure, unspecified; E11.22 Type 2 diabetes mellitus with diabetic chronic kidney disease; T44.7X5A Adverse effect of beta-adrenoreceptor antagonists, initial encounter; Z98.61 Coronary angioplasty status; Z88.0 Allergy status to penicillin; Z80.3 Family history of malignant neoplasm of breast; Z87.891 Personal history of nicotine dependence; Z79.84 Long term (current) use of oral hypoglycemic drugs; Z79.02 Long term (current) use of antithrombotics/antiplatelets; Z79.899 Other long term (current) drug therapy; Y92.89 Other specified places as the place of occurrence of the external cause; Z79.82 Long term (current) use of aspirin
CPT/HCPCS: 36415; 71045; 80048; 80053; 81001; 82962; 83735; 83880; 84100; 84443; 84484; 85025; 85379; 93005; G0378

== ENCOUNTER 2024-10-01 22:13 | Inpatient (IN) | payer OTHER ==
[~2024-10-01] VITALS: Ht 162.6 cm; Wt 72.8 kg
[~2024-10-01 22:13] MED LIST changes: -CARV6.2551 PO; -FERR325T24 PO; -METF-370 PO
[2024-10-01 22:32] LABS: Basophils # (auto) 0 10 ^3/uL (0-0.2); Hemoglobin 11.9 g/dL (12.2-16.2); Lymphocytes # (auto) 2.2 10 ^3/uL (0.4-5.4); Lymphocytes % (auto) 44.2 % (10.0-50.0); Monocytes # (auto) 0.5 10 ^3/uL (0-1.3); White Blood Cell 4.9 10^3/uL (4.4-10.8)
[2024-10-01 22:34] LABS: Basophils % (auto) 0.9 % (0.0-2.0); Eosinophils # (auto) 0 10 ^3/uL (0-0.8); Eosinophils % (auto) 0.9 % (0.0-7.0); Hematocrit 37.7 % (36.0-46.0); Mean Corpuscular Hemoglobin 24.9 pg (28.0-32.0); Mean Corpuscular Hgb Conc. 31.4 g/dL (32.0-36.0); Mean Corpuscular Volume 79.3 fL (80.0-100.0); Monocytes % (auto) 10.3 % (0.0-12.0); Neutrophils # (auto) 2.2 10 ^3/uL (1.6-8.6); Neutrophils % (auto) 43.7 % (37.0-80.0); Nucleated Red Blood Cells % 0.1 %; Platelet Count (auto) 183 10^3/uL (140-450); Red Blood Cells 4.76 10^6/uL (4.0-5.20); Red Cell Distribution Width 14.9 % (11.8-14.3)
[2024-10-01 22:41] LABS: Potassium 3.9 mmol/L (3.5-5.1)
[2024-10-01 22:42] LABS: Anion Gap 9 (5-15); Calcium 9.8 mg/dL (8.7-10.4); Carbon Dioxide 23 mmol/L (20-31)
[2024-10-01 22:47] LABS: BUN/Creatinine Ratio 16.2 (10.0-20.0); Blood Urea Nitrogen 19 mg/dL (9-23)
[2024-10-01 23:00] LABS: Chloride 115 mmol/L (98-107); Glucose 115 mg/dL (74-106); Sodium 147 mmol/L (136-145)
[2024-10-02] VITALS (10 sets, daily range): BP systolic 126–180; BP diastolic 44–87; PULSE 49–99; RESP 18–22; TEMP 96.3–98.2; O2SAT 96–100
--- NOTE | 2024-10-02 01:21 | ED.PDOC ---
HPI Comments This patient is a pleasant but obese 69-year-old female who arrives the ED today for evaluation of right-sided chest pain concerns that began this morning and have intermittently presented throughout the day. Patient has a history of congestive heart failure and stent placement. Patient denies any fever nausea or vomiting. Vital signs were remarkable for bradycardia at arrival. Patient has a history of bradycardia. Chief Complaint: Chest Pain Time Seen by MD: 22:17 Primary Care Provider: PHYLLIS Reviewed Notes: Nurses Notes Allergies: Coded Allergies: Penicillins (Verified Adverse Reaction, Severe, 10/18/14) Uncoded Allergies: ADHESIVE (Allergy, Unknown, 12/22/17) Home Meds Active Scripts Diclofenac Sodium (Topical) (Aspercreme Arthritis Pain) 1 % Gel, 1 % EX BID, #1 GEL To apply to chest area for sharp pain twice a day for seven days Prov:VENANCIO SHARP MD 04/09/24 Sacubitril-Valsartan (Entresto 24-26 mg) 1 Tab Tab, 1 TAB PO BID, #60 TAB Prov:EDDIE RICKETTS MD 08/13/23 Empagliflozin (Jardiance) 10 Mg Tab, 10 MG PO DAILY for 60 Days, #60 TAB Prov:EDDIE RICKETTS MD 08/13/23 Clopidogrel Bisulfate (CLOPIDOGREL) 75 Mg Tab, 75 MG PO DAILY, #60 TAB Prov:EDDIE RICKETTS MD 08/13/23 Atorvastatin Calcium (ATORVASTATIN CALCIUM) 20 Mg Tab, 40 MG PO HS, #60 TAB Prov:EDDIE RICKETTS MD 08/13/23 Pantoprazole Sodium Sesquihydr (Pantoprazole Sodium Dr) 40 Mg Tab, 40 MG PO DAILY, #60 TAB Prov:VENANCIO SHARP MD 07/02/23 Albuterol Sulfate (Albuterol Sulfate Hfa) 108 Mcg/Act Aer, 1 PUFF IN Q4HPRN PRN, #1 INH As needed for cough nasal congestion shortness of breath or wheeze Prov:VASU NATION Q THERMODYNAMICIST 06/14/23 Furosemide (Lasix) 20 Mg Tb, 20 MG GT BID, #30 TAB 0 Refills Prov:TIA RAMIREZ MD 07/04/21 Reported Medications Aspirin (Aspir-81) 81 Mg Tab, 81 MG PO DAILY, TAB 08/06/15 Information Source: Patient Mode of Arrival: Ambulatory Severity: Moderate Timing: Hours Duration: Intermittent Prehospital treatment: None Location: Chest (R) Radiation: No Radiation Quality: Sharp, Squeezing Onset: At Rest Cardiac Risk Factors: None PE Risk Factors: None History of: Similar pain in past Past Medical History PAST MEDICAL HISTORY: CAD, CHF, DM, High Lipids, HTN Surgical History: [employer] History: 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 History Family History Family History: Unknown Social History Smoker: Non-Smoker Alcohol: Denies ETOH Use Drugs: Denies Drug Use Lives In: Home Constitutional: denies: chills, diaphoresis, fatigue, fever, malaise, sweats, weakness, others EENTM: denies: blurred vision, double vision, ear bleeding, ear discharge, ear drainage, ear pain, ear ringing, eye pain, eye redness, hearing loss, mouth pain, mouth swelling, nasal discharge, nose bleeding, nose congestion, nose pain, photophobia, tearing, throat pain, throat swelling, voice changes, others Respiratory: denies: cough, hemoptysis, orthopnea, SOB at rest, shortness of breath, SOB with excertion, stridor, wheezing, others Cardiovascular: reports: chest pain; denies: dizzy spells, diaphoresis, Dyspnea on exertion, edema, irregular heart beat, left arm pain, lightheadedness, palpitations, PND, syncope, others Gastrointestinal: denies: abdomen distended, abdominal pain, blood streaked bowels, constipated, diarrhea, dysphagia, difficulty swallowing, hematemesis, melena, nausea, poor appetite, poor fluid intake, rectal bleeding, rectal pain, vomiting, others Genitourinary: denies: abnormal vagina bleeding, burning, dyspareunia, dysuria, flank pain, frequency, hematuria, incontinence, pain, , vagina discharge, urgency, others Neurological: denies: dizziness, fainting, headache, left sided numbness, left sided weakness, numbness, paresthesia, pre-existing deficit, right sided numbness, right sided weakness, seizure, speech problems, tingling, tremors, weakness, others Musculoskeletal: denies: back pain, gout, joint pain, joint swelling, muscle pain, muscle stiffness, neck pain, others Integumetry: denies: bruises, change in color, change in hair/nails, dryness, laceration, lesions, lumps, rash, wounds, others Allergic/Immunocompromised: denies: Difficulty Healing, Frequent Infections, Hives, Itching, others Hematologic/Lymphatic: denies: anemia, blood clots, easy bleeding, easy bruising, swollen glands, others Endocrine: denies: excessive hunger, excessive sweating, excessive thirst, excessive urination, flushing, intolerance to cold, intolerance to heat, unexplained weight gain, unexplained weight loss, others Psychiatric: denies: anxiety, bipolar disorder, depression, hopeless, panic disorder, schizophrenia, sleepless, suicidal, others Physical Exam General Appearance: Mild Distress (Very mild distress struggling evaluation due to right-sided chest pain concerns.), Normal HEENT: Normal ENT Inspection, Pharynx Normal, TMs Normal Neck: Full Range of Motion, Non-Tender, Normal, Normal Inspection Respiratory: Chest Non-Tender, Lungs Clear, No Accessory Muscle Use, No Respiratory Distress, Normal Breath Sounds Cardiovascular: Bradycardia, No Edema, No JVD, No Murmur, No Gallop, Normal Peripheral Pulses Breast Exam: Deferred Gastrointestinal: No Organomegaly, Non Tender, No Pulsatile Mass, Normal Bowel Sounds, Soft Genitalia: Deferred Pelvic: Deferred Rectal: Deferred Extremities: No calf tenderness, Normal capillary refill, Normal inspection, Normal range of motion, Non-tender, No pedal edema Neurologic: Alert, No Motor Deficits, Normal Affect, Normal Mood, No Sensory Deficits Cerebellar Function: Normal Reflexes: Normal Skin: Dry, Normal Color, Warm Lymphatic: No Adenopathy Was a procedure done? Was a procedure done?: No CP Differential Dx Differential Diagnosis: A-fib, A-Flutter, Angina, Anxiety / Panic Attack, Atr ial Dysrhythmia, AV Block 1st Degree, NV Differential Diagnosis: CHF Differential Diagnosis: Angina, Chest Wall Pain, Cholelithiasis X-Ray, Labs, Meds, VS Vital Signs Date Time Temp Pulse Resp B/P (MAP) Pulse Ox O2 Delivery O2 Flow Rate FiO2 10/02/24 01:00 98.0 43 16 150/77 (101) 99 98.0 10/01/24 22:21 117 10/01/24 22:18 98.0 47 16 168/58 (94) 99 98.0 Lab Test 10/01/24 23:10/01/24 22:24 Range/Units Troponin I High Sensitivity 36 *H 35 *H </=34 ng/L White Blood Count 4.9 4.4-10.8 10^3/uL Red Blood Count 4.76 4.0-5.20 10^6/uL Hemoglobin 11.9 L 12.2-16.2 g/dL Hematocrit 37.7 36.0-46.0 % Mean Corpuscular Volume 79.3 L 80.0-100.0 fL Mean Corpuscular Hemoglobin 24.9 L 28.0-32.0 pg Mean Corpuscular Hemoglobin Concent 31.4 L 32.0-36.0 g/dL Red Cell Distribution Width 14.9 H 11.8-14.3 % Platelet Count 183 140-450 10^3/uL Mean Platelet Volume 9.8 6.9-10.8 fL Neutrophils (%) (Auto) 43.7 37.0-80.0 % Lymphocytes (%) (Auto) 44.2 10.0-50.0 % Monocytes (%) (Auto) 10.3 0.0-12.0 % Eosinophils (%) (Auto) 0.9 0.0-7.0 % Basophils (%) (Auto) 0.9 0.0-2.0 % Neutrophils # (Auto) 2.2 1.6-8.6 10 ^3/uL Lymphocytes # (Auto) 2.2 0.4-5.4 10 ^3/uL Monocytes # (Auto) 0.5 0-1.3 10 ^3/uL Eosinophils # (Auto) 0 0-0.8 10 ^3/uL Basophils # (Auto) 0 0-0.2 10 ^3/uL Nucleated Red Blood Cells 0.1 % D-Dimer, Quantitative 0.47 0.0-0.49 mg/L FEU Sodium Level 147 H 136-145 mmol/L Potassium Level 3.9 3.5-5.1 mmol/L Chloride Level 115 H 98-107 mmol/L Carbon Dioxide Level 23 20-31 mmol/L Anion Gap 9 5-15 Blood Urea Nitrogen 19 9-23 mg/dL Creatinine 1.17 H 0.550-1.02 mg/dL Glomerular Filtration Rate Calc 51 >90 mL/min BUN/Creatinine Ratio 16.2 10.0-20.0 Serum Glucose 115 H 74-106 mg/dL Calcium Level 9.8 8.7-10.4 mg/dL B-Type Natriuretic Peptide 822.53 0-100 pg/mL X-Ray, Labs, Meds, VS Comment All studies performed in the ED were evaluated by me personally. Laboratories studies confirmed an elevated troponin as well as a BNP of 825. EKG revealed a sinus tachycardia with a rate of 117, ventricular bigeminy noted as well as nonspecific T-wave abnormalities in the lateral leads. CA interval of 175 and QT interval was 353. Discussed the case with provider Jasbir Seals as the patient is managed by [facility]. Advised him of patient presentation as well as laboratory and EKG findings. He agreed to accept the patient as an admission for cardiac evaluation. Time of 1ST Reevaluation: :20 Reevaluation 1ST: Improved Consultation: PCP, Cardiology Patient Education/Counseling: Diagnosis, Treatment Family Education/Counseling: Diagnosis, Treatment Departure 1 Departure Time of Disposition: 01:20 Impression: Primary Impression: Acute coronary syndrome Additional Impressions: Bradycardia Acute exacerbation of CHF (congestive heart failure) Disposition: ADMITTED INPATIENT Condition: Stable Discharged With: Self Critical Care Note Critical Care Time?: No Stability Stability form required: No Heart Score Heart Score: Heart Score Response (Comments) Value History Slightly Suspicious 0 EKG Repolarization Disturb 1 Age >65 2 Risk Factors >3 or Hx ASHD 2 Troponin 1-2 x's Normal limit 1 Total 6 MARY CONDE PAC Oct 02, 2024 01:21
--- NOTE | 2024-10-02 01:44 | DVH ---
CHEST RADIOGRAPH Indication: Chest pain Technique: Single frontal view of the chest was obtained Comparison: XY CHEST XRAY 1 VIEW on DOS: 05/14/24, XY CHEST PORTABLE on DOS: 04/07/24, XY CHEST PORTAB LE on DOS: 08/11/23 FINDINGS: Lines and Tubes: None Lungs: Clear Pleura: No effusion. No pneumothorax. Cardiomediastinal contours: Mild cardiomegaly Bones: Unremarkable IMPRESSION: Clear lungs.
[2024-10-02] MEDS ORDERED: DOCUSATE SOD 100 MG CAP PO PRN (01:45)
[2024-10-02] MEDS ORDERED: MORPHINE SULFATE INJ 2 MG/ml SYRG IV PRN ×2 (01:45)
[2024-10-02] MEDS ORDERED: ONDANSETRON HCL 4 MG/2 ML VIAL IV PRN (01:45)
[2024-10-02] MEDS ORDERED: DEXTROSE (50%) 50ML SYRG IV PRN (01:45)
[2024-10-02] MEDS ORDERED: HYDROcodone-ACET 5/325MG TAB PO PRN (01:45)
--- NOTE | 2024-10-02 01:51 | DVHHP2 ---
SHIRLEY SCHULTZ DRAFTER (CAD) ELECTRICAL 10/02/24 0151: History of Present Illness Reason for Visit: Chest pain, SOB History of Present Illness 61-year-old female with past medical history of DM, hypertension, CAD s/p PCI with stent, CHF (estimated LVEF 30-35% March 2024), bradycardia presents with complaints of chest pain radiating to his right arm x1 day. Patient is also endorsing exertional shortness of breath after walking short distances. During the emergency department evaluation CBC is unremarkable. BMP: Na 147, K3.9, BUN 19, creatinine 1.17, positive troponin 35/36, BNP 822.5. CXR unremarkable. Patient endorses her senior application security consultant is Dr. Mac. At this time patient denies fevers, chills, palpitations, nausea, vomiting. Cardiovascular: CAD, CHF, HTN, SD Endocrine: Diabetes Smoke: No ALCOHOL: none Drugs: None Lives: with Family Review of Systems Constitutional: No: Fever, Chills, Sweats, Weakness, Malaise, Other Eyes: No: Pain, Vision change, Conjunctivae inflammation, Eyelid inflammation, Other, Redness ENT: No: Ear pain, Ear discharge, Nose pain, Nose discharge, Nose congestion, Mouth pain, Mouth swelling, Throat pain, Throat swelling, Other Respiratory: Shortness of breath, SOB with excertion; No: Cough, Dry, Wheezing, Hemoptysis, Pleuritic Pain, Sputum, Wheezing, Other Cardiovascular: Chest Pain; No: Palpitations, Orthopnea, Paroxysmal Noc. Dyspnea, Edema, Lt Headedness, Other Gastrointestinal: No: Nausea, Vomiting, Abdominal Pain, Diarrhea, Constipation, Melena, Hematochezia, Other Genitourinary: No Dysuria, No Frequency, No Incontinence, No Hematuria, No Retention, No Other Musculoskeletal: No: other, neck pain, shoulder pain, arm pain, back pain, hand pain, leg pain, foot pain Skin: No: Rash, Lesions, Jaundice, Bruising, Other Neurological: No: Weakness, Numbness, Incoordination, Change in speech, Confusion, Seizures, Other Allergies: Coded Allergies: Penicillins (Verified Adverse Reaction, Severe, 10/18/14) Uncoded Allergies: ADHESIVE (Allergy, Unknown, 12/22/17) Medications Current Medications Medications Dose Ordered Sig/Xenia Route Start Time Stop Time Status Last Admin Dose Admin Docusate Sodium 100 mg BIDPRN PRN PO 10/02/24 01:45 Acetaminophen 650 mg Q6HP PRN PO 10/02/24 01:45 Acetaminophen/ Hydrocodone Bitart 1 tab Q4HP PRN PO 10/02/24 01:45 Ondansetron HCl 4 mg Q4HP PRN IV 10/02/24 01:45 Morphine Sulfate 2 mg Q4HPRN PRN IV 10/02/24 01:45 Nitroglycerin 0.4 mg Q5MINP PRN SL 10/02/24 01:45 Morphine Sulfate 2 mg Q30M PRN IV 10/02/24 01:45 Atorvastatin Calcium 40 mg DAILY PO 10/02/24 10:00 Sacubitril/ Valsartan 1 tab BID PO 10/02/24 10:00 Furosemide 20 mg BID IV 10/02/24 10:00 Diagnostic Test (Pha) 1 strip ACHS 10/02/24 07:00 Insulin Human Regular ACHS SC 10/02/24 07:00 Dextrose 50 ml UD PRN IV 10/02/24 01:45 Clopidogrel Bisulfate 75 mg DAILY PO 10/02/24 10:00 Aspirin 81 mg DAILY PO 10/02/24 10:00 Pantoprazole Sodium 40 mg DAILY IV 10/02/24 10:00 Exam Vital Signs Vital Signs Date Time Temp Pulse Resp B/P (MAP) Pulse Ox O2 Delivery O2 Flow Rate FiO2 10/02/24 01:00 98.0 43 16 150/77 (101) 99 98.0 General Appearance: Alert, Oriented X3, Cooperative, mild distress HEENT: Atraumatic, PERRLA, EOMI Respiratory: Other (Diminished air exchange) Cardiovascular: Normal S1, Normal S2, Other (Bradycardia) Abdominal: Normal bowel sounds, Soft, No tenderness Extremities: No clubbing, No cyanosis, No edema Skin: No significant lesion Neuro: Normal gait, Normal speech, Strength at 5/5 X4 ext Psych/Mental Status: Mental status NL, Mood NL Labs/Xrays Labs Test 10/02/24 01:41 10/01/24 22:24 Range/Units White Blood Count 4.9 4.4-10.8 10^3/uL Red Blood Count 4.76 4.0-5.20 10^6/uL Hemoglobin 11.9 L 12.2-16.2 g/dL Hematocrit 37.7 36.0-46.0 % Mean Corpuscular Volume 79.3 L 80.0-100.0 fL Mean Corpuscular Hemoglobin 24.9 L 28.0-32.0 pg Mean Corpuscular Hemoglobin Concent 31.4 L 32.0-36.0 g/dL Red Cell Distribution Width 14.9 H 11.8-14.3 % Platelet Count 183 140-450 10^3/uL Mean Platelet Volume 9.8 6.9-10.8 fL Neutrophils (%) (Auto) 43.7 37.0-80.0 % Lymphocytes (%) (Auto) 44.2 10.0-50.0 % Monocytes (%) (Auto) 10.3 0.0-12.0 % Eosinophils (%) (Auto) 0.9 0.0-7.0 % Basophils (%) (Auto) 0.9 0.0-2.0 % Neutrophils # (Auto) 2.2 1.6-8.6 10 ^3/uL Lymphocytes # (Auto) 2.2 0.4-5.4 10 ^3/uL Monocytes # (Auto) 0.5 0-1.3 10 ^3/uL Eosinophils # (Auto) 0 0-0.8 10 ^3/uL Basophils # (Auto) 0 0-0.2 10 ^3/uL Nucleated Red Blood Cells 0.1 % D-Dimer, Quantitative 0.47 0.0-0.49 mg/L FEU Sodium Level 147 H 136-145 mmol/L Potassium Level 3.9 3.5-5.1 mmol/L Chloride Level 115 H 98-107 mmol/L Carbon Dioxide Level 23 20-31 mmol/L Anion Gap 9 5-15 Blood Urea Nitrogen 19 9-23 mg/dL Creatinine 1.17 H 0.550-1.02 mg/dL Glomerular Filtration Rate Calc 51 >90 mL/min BUN/Creatinine Ratio 16.2 10.0-20.0 Serum Glucose 115 H 74-106 mg/dL Calcium Level 9.8 8.7-10.4 mg/dL B-Type Natriuretic Peptide 822.53 0-100 pg/mL Assessment/Plan Assessment/Plan Chest pain Mild troponin elevation Elevated BNP with history of ischemic cardiomyopathy EF 30-35% Hypertension Bradycardia Hx CAD s/p PCI DM Plan Admit telemetry Cardiology consult. Echocardiogram. Continue home medication. ASA, statin. As needed antihypertensive for optimal BP management. Serial troponin. Avoid beta blockers. Blood glucose check with regular insulin sliding scale coverage for optimal glycemic management. GI ppx protonix / DVT ppx scd Plan discussed with: Patient My Orders Orders - SHIRLEY SCHULTZ NP Procedure Category Date Status Time Admit ADMIT 10/02/24 Transmitted 01:32 Code Status CODE 10/02/24 Transmitted 01:32 Vital Signs BRADEN 10/02/24 In Process 01:32 Review Orders With BRADEN 10/02/24 In Process Adm.Md 01:32 Encourage Activity As BRADEN 10/02/24 In Process Tolerate 01:32 Consistent DIET 10/02/24 Transmitted Carb(Ccho)Diabetes Breakfast Oxygen By Face Mask RT 10/02/24 Transmitted 01:32 Docusate Sodium PHA 10/02/24 In Process Capsule (Colace 01:45 Acetaminophen Tablet PHA 10/02/24 In Process (Tylenol Tablet) 01:45 Notify Of Changes BRADEN 10/02/24 In Process From Base 01:32 Advance Directive BRADEN 10/02/24 In Process 01:32 Echo 2d Mode Cardiac US 10/02/24 Logged DOP 01:32 Basic Metabolic Panel LAB 10/02/24 Logged 05:00 Basic Metabolic Panel LAB 10/03/24 Verified 05:00 Basic Metabolic Panel LAB 10/04/24 Verified 05:00 Basic Metabolic Panel LAB 10/05/24 Verified 05:00 Complete Blood Count LAB 10/02/24 Logged 05:00 Complete Blood Count LAB 10/03/24 Verified 05:00 Complete Blood Count LAB 10/04/24 Verified 05:00 Complete Blood Count LAB 10/05/24 Verified 05:00 Patient Condition ORDERS 10/02/24 Transmitted 01:32 Allergies BRADEN 10/02/24 In Process 01:32 Hydrocodone-Acet PHA 10/02/24 In Process 5/325mg Tab ([place] 01:45 Ondansetron Hcl PHA 10/02/24 In Process (Zofran) 01:45 Morphine Sulfate PHA 10/02/24 In Process Injection 01:45 Nitroglycerin PHA 10/02/24 In Process Sublingual (Ntrostat 01:45 Morphine Sulfate PHA 10/02/24 In Process Injection 01:45 Stat Ekg For Chest BRADEN 10/02/24 In Process Pain 01:32 Notify Of Changes BRADEN 10/02/24 In Process From Base 01:32 Harpsichord Maker For BRADEN 10/02/24 In Process 24 Hours 01:32 Emergency Dysrhythmia BRADEN 10/02/24 In Process Protocol 01:32 Rhythm Strips Once BRADEN 10/02/24 In Process Every Shift 01:32 Oxygen By Nasal RT 10/02/24 Transmitted Cannula 01:32 * Cardiology Consult CONS 10/02/24 Transmitted 01:32 Atorvastatin (Lipitor) PHA 10/02/24 In Process 10:00 Sacubitril-Valsartan PHA 10/02/24 In Process (Entresto 24-26 Mg 10:00 Furosemide Injection PHA 10/02/24 In Process (Lasix Injection) 10:00 Glucose Blood PHA 10/02/24 In Process (Accu-Chek Comfort 07:00 Insulin R (Human) PHA 10/02/24 In Process (Insulin R) 07:00 Dextrose 50% Syringe PHA 10/02/24 In Process 01:45 Clopidogrel Bisulfate PHA 10/02/24 In Process (Plavix) 10:00 Aspirin Enteric PHA 10/02/24 In Process Coated Tablet 10:00 Communication Order ORDERS 10/02/24 Transmitted 01:32 Pantoprazole PHA 10/02/24 In Process (Protonix) 10:00 Troponin-I Hs LAB 10/02/24 Transmitted 08:00 Troponin-I Hs LAB 10/02/24 Transmitted 16:00 Date of Service: Oct 02, 2024 Billing Provider: EDDIE RICKETTS MD Common Visit Codes: NOT BILLABLE EDDIE RICKETTS MD 10/04/24 1859: Review of Systems Allergies: Coded Allergies: Penicillins (Verified Adverse Reaction, Severe, 10/18/14) Uncoded Allergies: ADHESIVE (Allergy, Unknown, 12/22/17) SHIRLEY SCHULTZ NP Oct 02, 2024 01:51 EDDIE RICKETTS MD Oct 04, 2024 18:59
[2024-10-02] MEDS: hydrALAZINE HCL 20 MG/ML VL IV PRN (04:29)
[2024-10-02] MEDS: NITROGLYCERIN 0.4 MG SL TAB SL PRN (05:14)
[2024-10-02 06:15] LABS: Basophils # (auto) 0 10 ^3/uL (0-0.2); Eosinophils # (auto) 0 10 ^3/uL (0-0.8); Lymphocytes # (auto) 2.8 10 ^3/uL (0.4-5.4); Neutrophils # (auto) 2.6 10 ^3/uL (1.6-8.6); Red Cell Distribution Width 14.9 % (11.8-14.3); White Blood Cell 5.9 10^3/uL (4.4-10.8)
[2024-10-02 06:17] LABS: Basophils % (auto) 0.4 % (0.0-2.0); Eosinophils % (auto) 0.7 % (0.0-7.0); Hematocrit 37.4 % (36.0-46.0); Mean Corpuscular Hemoglobin 25.1 pg (28.0-32.0); Mean Corpuscular Hgb Conc. 32.1 g/dL (32.0-36.0); Mean Corpuscular Volume 78.3 fL (80.0-100.0); Monocytes # (auto) 0.4 10 ^3/uL (0-1.3); Monocytes % (auto) 7.6 % (0.0-12.0); Neutrophils % (auto) 44.3 % (37.0-80.0); Nucleated Red Blood Cells % 0.1 %; Platelet Count (auto) 186 10^3/uL (140-450); Red Blood Cells 4.78 10^6/uL (4.0-5.20)
[2024-10-02 06:21] LABS: Anion Gap 11 (5-15); Carbon Dioxide 23 mmol/L (20-31); Chloride 113 mmol/L (98-107); Potassium 3.5 mmol/L (3.5-5.1); Sodium 147 mmol/L (136-145)
[2024-10-02 06:22] LABS: Calcium 9.9 mg/dL (8.7-10.4)
[2024-10-02 06:27] LABS: BUN/Creatinine Ratio 16.2 (10.0-20.0); Blood Urea Nitrogen 17 mg/dL (9-23)
[2024-10-02 06:30] LABS: Glucose 128 mg/dL (74-106)
[2024-10-02] MEDS ORDERED: POTA-36 PO (06:42)
[2024-10-02] MEDS ORDERED: CARV-214 PO (06:42)
[2024-10-02] MEDS ORDERED: FURO20TA3 PO (06:42)
[2024-10-02] MEDS ORDERED: SPIR25TA8 PO (06:42)
[2024-10-02] MEDS: ACCU-CHEK COMFORT CURVE STRIP VI SCH (06:55)
[2024-10-02] MEDS: InsuLIN REG 1unit/0.01ml Soln (100units/ml) SC SCH (07:15)
--- NOTE | 2024-10-02 08:42 | ECG ---
[facility] Test Date: 2024-10-01 Test Time: 22:21:47 Pat Name: KENNY GERARDO Department: ED Room: 0293T A Gender: F Hall Monitor: : 1955 Requested By: MARY CONDE Order Number: [id number] Reading MD: Fran Mac Measurements Intervals Saline Rate: 117 P: 67 OK: 175 QRS: 4 QRSD: 103 T: 92 QT: 353 QTc: 493 Interpretive Statements Sinus tachycardia Ventricular bigeminy Nonspecific T abnormalities, lateral leads Electronically Signed On 10-05-2024 20:51:15 PDT by Fran Mac Please click the below link to view image of tracing.
[2024-10-02] MEDS: SACUBITRIL-VALSARTAN 24mg/26mg TAB PO SCH (09:56)
[2024-10-02] MEDS: ATORVASTATIN 20 MG TAB PO SCH (09:56)
[2024-10-02] MEDS: ASPirin-EC 81 mg tab PO SCH (09:56)
[2024-10-02] MEDS: CLOPIDOGREL BISULFATE 75 MG TAB PO SCH (09:57)
[2024-10-02] MEDS: FUROSEMIDE 20 MG/2 ML VIAL IV SCH (09:57)
[2024-10-02] MEDS: PANTOPRAZOLE 40 MG/10 ML VIAL INJ IV SCH (09:57)
--- NOTE | 2024-10-02 11:55 | DVHINCON2 ---
Date Seen: Oct 02, 2024 Referring Physician OSBALDO Seals Reason for Consultation Chest pain, exertional dyspnea, and CHF History of Present Illness This is a 69-year-old female patient who presents to the emergency room with chief complaint of chest pain and shortness of breath. The patient reports that the chest pain began yesterday around 2:00 p.m. while she was lying down. She states that it was unprovoked, intermittent, pressure-like in nature, and right- sided without radiation. Associated symptoms include shortness of breath. The patient states that she has also been noticing dyspnea on exertion for approximately one week. Initial twelve lead electrocardiogram reveals sinus rhythm with PVCs. Initial troponin level of 35ng/L with flat trend thereafter. Initial BNP level of 822.53pg/mL. Significant past medical history includes coronary artery disease status post PTCA x 1 KEVIN to RCA (on aspirin and Plavix), congestive heart failure, hypertension, dyslipidemia, type 2 diabetes mellitus, chronic kidney disease, and history of tobacco use. The patient states that she follows up with fabric cutter in the outpatient setting. The patient underwent a coronary angiogram with left heart catheterization on 08/12/2023 in which there was a successful stenting of the RCA at the ostium. Past Medical History Past medical history reviewed. No other significant than mentioned above. Past Surgical History Denies any previous surgeries Family History: Diabetes mellitus G8 SISTER G8 BROTHER FH: cancer G8 SISTER Malignant neoplasm of breast G8 MOTHER, Family History Family history reviewed. Social History Patient has a 25 pack-year history, quit smoking approximately four years ago Denies any illicit drug use Denies any alcohol use Allergies: Coded Allergies: Penicillins (Verified Adverse Reaction, Severe, 10/18/14) Uncoded Allergies: ADHESIVE (Allergy, Unknown, 12/22/17) Home Meds Active Scripts Sacubitril-Valsartan (Entresto 24-26 mg) 1 Tab Tab, 1 TAB PO BID, #60 TAB Prov:EDDIE RICKETTS MD 08/13/23 Clopidogrel Bisulfate (CLOPIDOGREL) 75 Mg Tab, 75 MG PO DAILY, #60 TAB Prov:EDDIE RICKETTS MD 08/13/23 Atorvastatin Calcium (ATORVASTATIN CALCIUM) 20 Mg Tab, 40 MG PO HS, #60 TAB Prov:EDDIE RICKETTS MD 08/13/23 Pantoprazole Sodium Sesquihydr (Pantoprazole Sodium Dr) 40 Mg Tab, 40 MG PO DAILY, #60 TAB Prov:VENANCIO SHARP MD 07/02/23 Albuterol Sulfate (Albuterol Sulfate Hfa) 108 Mcg/Act Aer, 1 PUFF IN Q4HPRN PRN, #1 INH As needed for cough nasal congestion shortness of breath or wheeze Prov:[facility] NUR[facility] COORDINATOR 06/14/23 Reported Medications Carvedilol (COREG) 3.125 Mg Tab, 6.25 MG PO BID, TAB HOLD FOR SBP 100MMHG OR LESS AND/OR 60MMHG OR LESS. 10/02/24 Potassium Chloride (POTASSIUM CHLORIDE CR) 10 Meq Tb, 8 MEQ PO DAILY, TAB TAKE ONLY TOGETHER WITH LASIX. 10/02/24 Furosemide (Furosemide) 20 Mg Tab, 20 MG PO BID, TAB HOLD FOR SBP 100MMHG OR LESS AND/OR 60MMHG OR LESS. 10/02/24 Spironolactone (Spironolactone) 25 Mg Tab, 0.5 TAB PO DAILY 10/02/24 Aspirin (Aspir-81) 81 Mg Tab, 81 MG PO DAILY, TAB 08/06/15 Home Meds Home medications reviewed. Current Medications Current Medications Medications (Trade) Dose Ordered Sig/Xenia Route PRN Reason Start Time Stop Time Status Last Admin Docusate Sodium (Colace Capsule) 100 mg BIDPRN PRN PO FOR CONSTIPATION 10/02/24 01:45 Acetaminophen (Tylenol Tablet) 650 mg Q6HP PRN PO PAIN SCALE 1-3 OR TEMP>100.4 10/02/24 01:45 Acetaminophen/ Hydrocodone Bitart ([place] 5/325MG Tab) 1 tab Q4HP PRN PO MODERATE PAIN (4-6 PAIN SCALE) 10/02/24 01:45 Ondansetron HCl (Zofran) 4 mg Q4HP PRN IV NAUSEA / VOMITING 10/02/24 01:45 Morphine Sulfate 2 mg Q4HPRN PRN IV SEVERE PAIN (7-10 PAIN SCALE) 10/02/24 01:45 Nitroglycerin (Ntrostat Sublingual) 0.4 mg Q5MINP PRN SL FOR CHEST PAIN 10/02/24 01:45 10/02/24 05:14 Morphine Sulfate 2 mg Q30M PRN IV FOR CHEST PAIN 10/02/24 01:45 Atorvastatin Calcium (Lipitor) 40 mg DAILY PO 10/02/24 10:00 10/02/24 09:56 Sacubitril/ Valsartan (Entresto 24-26 Mg tab) 1 tab BID PO 10/02/24 10:00 10/02/24 09:56 Furosemide (Lasix Injection) 20 mg BID IV 10/02/24 10:00 10/02/24 09:57 Diagnostic Test (Pha) (Accu-Chek Comfort Curve T) 1 strip ACHS 10/02/24 07:00 10/02/24 06:55 Insulin Human Regular (InsuLIN R) ACHS SC 10/02/24 07:00 10/02/24 07:15 Dextrose 50 ml UD PRN IV Blood Sugar LESS THAN 60 10/02/24 01:45 Clopidogrel Bisulfate (Plavix) 75 mg DAILY PO 10/02/24 10:00 10/02/24 09:57 Aspirin (Ecotrin Enteric Coated Tablet) 81 mg DAILY PO 10/02/24 10:00 10/02/24 09:56 Pantoprazole Sodium (Protonix) 40 mg DAILY IV 10/02/24 10:00 10/02/24 09:57 Hydralazine HCl (Apresoline Injection) 10 mg Q6HP PRN IV SBP>150 10/02/24 04:15 10/02/24 04:29 Review of Systems Constitutional: No symptom reported Ears, Nose, & Throat: No symptom reported Eyes: No symptom reported Neurological: No symptoms reported Pulmonary/Respiratory: Shortness of breath Cardiovascular: Chest pain Gastrointestinal: No symptom reported Genitourinary: No symptom reported Musculoskeletal: No symptom reported Skin: No symptom reported Psychiatric: No symptom reported Endocrine: No symptom reported Hematologic/Lymphatic: No symptom reported Vital Signs Vital Signs Date Time Temp Pulse Resp B/P (MAP) Pulse Ox O2 Delivery O2 Flow Rate FiO2 10/02/24 09:57 163/63 10/02/24 09:00 96.3 49 20 100 96.3 10/02/24 08:00 Room Air* 0 21 Physical Exam General Appearance: Cooperative. Well-developed. Well-nourished. No acute distress. Pulmonary/Respiratory: Clear, bilateral breaths sounds. Cardiovascular/Chest: Irregular rate and rhythm. Peripheral Pulses: 2+ Radial (R). 2+ Radial (L). 2+ Pedal (R). 2+ Pedal (L) Abdominal Exam: Normal bowel sounds. Ankle Exam: Negative ankle edema Lower extremities: Negative lower extremity edema Neuro/Mental Status: A/OX4, coherent. Thoughts/Psych: Normal thought pattern. Appropriate mood and affect. Good judgment and insight. Appearance: No acute distress. Skin Exam: Normal inspection. Normal color. Warm and dry. Labs/Diagnostic Data Labs Test 10/02/24 10:21 10/02/24 06:31 10/02/24 05:48 10/01/24 22:24 Range/Units Troponin I High Sensitivity 42 *H </=34 ng/L POC Glucose 138 H 70-106 mg/dl White Blood Count 5.9 4.4-10.8 10^3/uL Red Blood Count 4.78 4.0-5.20 10^6/uL Hemoglobin 12.0 L 12.2-16.2 g/dL Hematocrit 37.4 36.0-46.0 % Mean Corpuscular Volume 78.3 L 80.0-100.0 fL Mean Corpuscular Hemoglobin 25.1 L 28.0-32.0 pg Mean Corpuscular Hemoglobin Concent 32.1 32.0-36.0 g/dL Red Cell Distribution Width 14.9 H 11.8-14.3 % Platelet Count 186 140-450 10^3/uL Mean Platelet Volume 10.0 6.9-10.8 fL Neutrophils (%) (Auto) 44.3 37.0-80.0 % Lymphocytes (%) (Auto) 47.0 10.0-50.0 % Monocytes (%) (Auto) 7.6 0.0-12.0 % Eosinophils (%) (Auto) 0.7 0.0-7.0 % Basophils (%) (Auto) 0.4 0.0-2.0 % Neutrophils # (Auto) 2.6 1.6-8.6 10 ^3/uL Lymphocytes # (Auto) 2.8 0.4-5.4 10 ^3/uL Monocytes # (Auto) 0.4 0-1.3 10 ^3/uL Eosinophils # (Auto) 0 0-0.8 10 ^3/uL Basophils # (Auto) 0 0-0.2 10 ^3/uL Nucleated Red Blood Cells 0.1 % Sodium Level 147 H 136-145 mmol/L Potassium Level 3.5 3.5-5.1 mmol/L Chloride Level 113 H 98-107 mmol/L Carbon Dioxide Level 23 20-31 mmol/L Anion Gap 11 5-15 Blood Urea Nitrogen 17 9-23 mg/dL Creatinine 1.05 H 0.550-1.02 mg/dL Glomerular Filtration Rate Calc 58 >90 mL/min BUN/Creatinine Ratio 16.2 10.0-20.0 Serum Glucose 128 H 74-106 mg/dL Calcium Level 9.9 8.7-10.4 mg/dL D-Dimer, Quantitative 0.47 0.0-0.49 mg/L FEU B-Type Natriuretic Peptide 822.53 0-100 pg/mL Assessment Chest pain , rule out coronary ischemia Coronary artery disease s/p PTCA x 1 KEVIN to RCA (on aspirin and Plavix) Ischemic cardiomyopathy Acute on chronic decompensated HFrEF, NYHA class III History of Severe mitral insufficiency Moderate aortic stenosis Hypertension Dyslipidemia Chronic kidney disease Type 2 diabetes mellitus History of tobacco use Plan/Recommendation We will continue with the following plan/recommendations (Dr. Chávez): * Transthoracic echocardiogram reveals EF 30% * Continue guideline directed medical therapy for CHF as tolerated * Hold [id number] given patient history of frequent UTIs * Strict intake and output, daily weights, maintain fluid restriction * Preload and afterload reduction * Continue dual antiplatelet therapy and lipid-lowering agent * Close cardiac monitoring * Nuclear stress test Patient seen and examined at bedside with . The patient was offered a nuclear stress test and is agreeable to undergo procedure. We will schedule the patient for nuclear stress test on 10/03/2024. Thank you for allowing us to care for this patient. Please call with any questions or concerns. Critical care time spent: 43 minutes This medical document was created using an electronic medical record system with voice recognition software and computerized dictation system. Although this document has been carefully reviewed, there might still be some phonetic and typographical errors. Occasional wrong-word or ``sound-alike substitutions may have occurred due to the inherent limitations of voice recognition software. These areas are purely typographical due to imperfections of the software programs and do not reflect any compromise in the patient's medical care. Please read the chart carefully and recognize, using context, where these substitutions have occurred. Plan discussed with: Patient NYHA Physical activity limitations: Class3(Marked) ordinary (activity causes symtoms) Date of Service: Oct 02, 2024 Billing Provider: ARMIDA MARIANO Cardiology Common Codes: 29957-HRSNUJQ INP/OBS CARE (High) Cardiology Consultation Codes: 51480-[id number] CONSULT <45MIN ARMIDA MARIANO Oct 02, 2024 11:55
[2024-10-02 12:19] LABS: Magnesium 1.8 mg/dL (1.6-2.6)
--- NOTE | 2024-10-02 15:37 | DVHSR ---
APPROVED REPORT EXAM: Two-dimensional and M-mode echocardiogram with Doppler and color Doppler. Blood Pressure: 163/63 mmHg INDICATION CHF Exacerbation RISK FACTORS Height: 5' 4", Weight: 176 DIMENSIONS LVDd5.7 (3.8-5.7cm)LA (2D)4.4 (1.9-4.0cm)Aortic Root3.1 (2.0-3.7cm) LVDs5.0 (2.5-4.0cm)LA (MM) (1.9-4.0cm)Aortic Cusp Exc (1.5-2.0cm) EF (%) 30.0 (55-70%)Rt. Atrium4.0 (1.9-4.0cm)Asc. Aorta cm IVSd1.1 (0.7-1.1cm)RV (D) (1.8-2.4cm) PWd1.1 (0.7-1.1cm) Mitral Valve MitralMitral Stenosis E wave1.50m/sMV Mean GR.mmHg A wave1.20m/sMV Peak GR.mmHg E/A ratio1.32D MVAcm2 Aortic Valve Aortic ValveAortic Stenosis V11.00m/Clemente Mean GR.15mmHg V22.70m/Clemente Peak GR.29mmHg LVOT Diameter2.4 (1.8-2.4cm)Doppler AVA1.67cm2 AI P 1/2 Utqt121.00ms Pulmonic Valve V20.80m/s Tricuspid Valve TR Velocity2.20m/s [id number] Conclusion DILATED ALL CARDIAC CARDIAC CHAMBERS MODERATE DEGREE LV GLOBAL HYPOKINESIS LV EF IS ONLY 30% PEAK GRADIENT ACROSS AORTIC VALVE IS 29 MM OF HG AND MEAN GRADIENT IS 19 MM OF HG AORTIC VALVE AREA IS 1.67 CM AND IS MODERATELY REDUCED MODERATE DEGREE AORTIC STENOSIS NO EFFUSION
[2024-10-02] MEDS: MAGNESIUM SULFATE 1GM/100ML 100 ML IV ONE (15:47)
[2024-10-02] MEDS: CARVEDILOL 3.125 MG TAB PO SCH (22:46)
--- NOTE | 2024-10-02 23:40 | DVHINCON2 ---
Date Seen: Oct 02, 2024 Referring Physician OSBALDO Seals Reason for Consultation Chest pain, exertional dyspnea, and CHF History of Present Illness This is a 61-year-old female with a past medical history of coronary artery disease status post PTCA x 1 KEVIN to RCA (on aspirin and Plavix), congestive heart failure, hypertension, dyslipidemia, type 2 diabetes mellitus, chronic kidney disease, and history of tobacco use who presents to the emergency room with a complaint of chest pain and shortness of breath. The patient reports that the chest pain began yesterday around 2:00 p.m. while she was lying down. She states that it was unprovoked, intermittent, pressure-like in nature, and right- sided without radiation. Associated symptoms include shortness of breath. The patient states that she has also been noticing dyspnea on exertion for approximately one week. Initial twelve lead electrocardiogram reveals sinus rhythm with PVCs. Initial troponin level of 35ng/L with flat trend thereafter. Initial BNP level of 822.53pg/mL. The patient states that she follows up with public records researcher Dr. Mac in the outpatient setting. The patient underwent a coronary angiogram with left heart catheterization on 08/12/2023 in which there was a successful stenting of the RCA at the ostium. Chest x-ray showed NAD. Patient was admitted to the hospital. I am asked to consult on this patient. Past Medical History Past medical history reviewed. No other significant than mentioned above. Past Surgical History Denies any previous surgeries Family History: Diabetes mellitus G8 SISTER G8 BROTHER FH: cancer G8 SISTER Malignant neoplasm of breast G8 MOTHER, Allergies: Coded Allergies: Penicillins (Verified Adverse Reaction, Severe, 10/18/14) Uncoded Allergies: ADHESIVE (Allergy, Unknown, 12/22/17) Home Meds Active Scripts Sacubitril-Valsartan (Entresto 24-26 mg) 1 Tab Tab, 1 TAB PO BID, #60 TAB Prov:EDDIE RICKETTS MD 08/13/23 Clopidogrel Bisulfate (CLOPIDOGREL) 75 Mg Tab, 75 MG PO DAILY, #60 TAB Prov:EDDIE RICKETTS MD 08/13/23 Atorvastatin Calcium (ATORVASTATIN CALCIUM) 20 Mg Tab, 40 MG PO HS, #60 TAB Prov:EDDIE RICKETTS MD 08/13/23 Pantoprazole Sodium Sesquihydr (Pantoprazole Sodium Dr) 40 Mg Tab, 40 MG PO DAILY, #60 TAB Prov:VENANCIO SHARP MD 07/02/23 Albuterol Sulfate (Albuterol Sulfate Hfa) 108 Mcg/Act Aer, 1 PUFF IN Q4HPRN PRN, #1 INH As needed for cough nasal congestion shortness of breath or wheeze Prov:VASU N[place] Q [employer]LECT[employer]ICAL [employer]ER 06/14/23 Reported Medications Carvedilol (COREG) 3.125 Mg Tab, 6.25 MG PO BID, TAB HOLD FOR SBP 100MMHG OR LESS AND/OR 60MMHG OR LESS. 10/02/24 Potassium Chloride (POTASSIUM CHLORIDE CR) 10 Meq Tb, 8 MEQ PO DAILY, TAB TAKE ONLY TOGETHER WITH LASIX. 10/02/24 Furosemide (Furosemide) 20 Mg Tab, 20 MG PO BID, TAB HOLD FOR SBP 100MMHG OR LESS AND/OR 60MMHG OR LESS. 10/02/24 Spironolactone (Spironolactone) 25 Mg Tab, 0.5 TAB PO DAILY 10/02/24 Aspirin (Aspir-81) 81 Mg Tab, 81 MG PO DAILY, TAB 08/06/15 Current Medications Current Medications Medications (Trade) Dose Ordered Sig/Xenia Route PRN Reason Start Time Stop Time Status Last Admin Docusate Sodium (Colace Capsule) 100 mg BIDPRN PRN PO FOR CONSTIPATION 10/02/24 01:45 Acetaminophen (Tylenol Tablet) 650 mg Q6HP PRN PO PAIN SCALE 1-3 OR TEMP>100.4 10/02/24 01:45 Acetaminophen/ Hydrocodone Bitart (Odell 5/325MG Tab) 1 tab Q4HP PRN PO MODERATE PAIN (4-6 PAIN SCALE) 10/02/24 01:45 Ondansetron HCl (Zofran) 4 mg Q4HP PRN IV NAUSEA / VOMITING 10/02/24 01:45 Morphine Sulfate 2 mg Q4HPRN PRN IV SEVERE PAIN (7-10 PAIN SCALE) 10/02/24 01:45 Nitroglycerin (Ntrostat Sublingual) 0.4 mg Q5MINP PRN SL FOR CHEST PAIN 10/02/24 01:45 10/02/24 05:14 Morphine Sulfate 2 mg Q30M PRN IV FOR CHEST PAIN 10/02/24 01:45 Atorvastatin Calcium (Lipitor) 40 mg DAILY PO 10/02/24 10:00 10/02/24 09:56 Sacubitril/ Valsartan (Entresto 24-26 Mg tab) 1 tab BID PO 10/02/24 10:00 10/02/24 09:56 Furosemide (Lasix Injection) 20 mg BID IV 10/02/24 10:00 10/02/24 09:57 Diagnostic Test (Pha) (Accu-Chek Comfort Curve T) 1 strip ACHS 10/02/24 07:00 10/02/24 11:30 Insulin Human Regular (InsuLIN R) ACHS SC 10/02/24 07:00 10/02/24 07:15 Dextrose 50 ml UD PRN IV Blood Sugar LESS THAN 60 10/02/24 01:45 Clopidogrel Bisulfate (Plavix) 75 mg DAILY PO 10/02/24 10:00 10/02/24 09:57 Aspirin (Ecotrin Enteric Coated Tablet) 81 mg DAILY PO 10/02/24 10:00 10/02/24 09:56 Pantoprazole Sodium (Protonix) 40 mg DAILY IV 10/02/24 10:00 10/02/24 09:57 Hydralazine HCl (Apresoline Injection) 10 mg Q6HP PRN IV SBP>150 10/02/24 04:15 10/02/24 04:29 Spironolactone (Aldactone) 25 mg DAILY PO 10/03/24 10:00 Carvedilol (Coreg Tablet) 3.125 mg Q12HR PO 10/02/24 22:00 Review of Systems Constitutional: No symptom reported Ears, Nose, & Throat: No symptom reported Eyes: No symptom reported Neurological: No symptoms reported Pulmonary/Respiratory: Shortness of breath Cardiovascular: Chest pain Gastrointestinal: No symptom reported Genitourinary: No symptom reported Musculoskeletal: No symptom reported Skin: No symptom reported Psychiatric: No symptom reported Endocrine: No symptom reported Hematologic/Lymphatic: No symptom reported Vital Signs Vital Signs Date Time Temp Pulse Resp B/P (MAP) Pulse Ox O2 Delivery O2 Flow Rate FiO2 10/02/24 09:57 163/63 10/02/24 09:00 96.3 49 20 100 96.3 10/02/24 08:00 Room Air* 0 21 Physical Exam GENERAL: Alert and oriented x 3. No acute distress. EYES: PERRL, EOMI. Anicteric. HENT: Moist mucous membranes. LUNGS: Clear to auscultation bilaterally. CARDIOVASCULAR: Irregular rate and rhythm. ABDOMEN: Soft, nontender and nondistended. EXTREMITIES: No edema. NEUROLOGIC: No focal neurological deficits. SKIN: Warm, dry. Labs/Diagnostic Data Labs Test 10/02/24 15:35 10/02/24 12:11 10/02/24 10:21 10/02/24 05:48 Range/Units Troponin I High Sensitivity 43 *H </=34 ng/L POC Glucose 104 70-106 mg/dl Magnesium Level 1.8 1.6-2.6 mg/dL Triglycerides Level 80 < 150 mg/dL Cholesterol Level 144 < 200 mg/dL LDL Cholesterol 59 < 100 mg/dL HDL Cholesterol 64 H 40-59 mg/dL Thyroid Stimulating Hormone (TSH) 1.25 0.55-4.78 uIU/mL White Blood Count 5.9 4.4-10.8 10^3/uL Red Blood Count 4.78 4.0-5.20 10^6/uL Hemoglobin 12.0 L 12.2-16.2 g/dL Hematocrit 37.4 36.0-46.0 % Mean Corpuscular Volume 78.3 L 80.0-100.0 fL Mean Corpuscular Hemoglobin 25.1 L 28.0-32.0 pg Mean Corpuscular Hemoglobin Concent 32.1 32.0-36.0 g/dL Red Cell Distribution Width 14.9 H 11.8-14.3 % Platelet Count 186 140-450 10^3/uL Mean Platelet Volume 10.0 6.9-10.8 fL Neutrophils (%) (Auto) 44.3 37.0-80.0 % Lymphocytes (%) (Auto) 47.0 10.0-50.0 % Monocytes (%) (Auto) 7.6 0.0-12.0 % Eosinophils (%) (Auto) 0.7 0.0-7.0 % Basophils (%) (Auto) 0.4 0.0-2.0 % Neutrophils # (Auto) 2.6 1.6-8.6 10 ^3/uL Lymphocytes # (Auto) 2.8 0.4-5.4 10 ^3/uL Monocytes # (Auto) 0.4 0-1.3 10 ^3/uL Eosinophils # (Auto) 0 0-0.8 10 ^3/uL Basophils # (Auto) 0 0-0.2 10 ^3/uL Nucleated Red Blood Cells 0.1 % Sodium Level 147 H 136-145 mmol/L Potassium Level 3.5 3.5-5.1 mmol/L Chloride Level 113 H 98-107 mmol/L Carbon Dioxide Level 23 20-31 mmol/L Anion Gap 11 5-15 Blood Urea Nitrogen 17 9-23 mg/dL Creatinine 1.05 H 0.550-1.02 mg/dL Glomerular Filtration Rate Calc 58 >90 mL/min BUN/Creatinine Ratio 16.2 10.0-20.0 Serum Glucose 128 H 74-106 mg/dL Hemoglobin A1c 6.0 H <5.7 % A1C Calcium Level 9.9 8.7-10.4 mg/dL Test 10/01/24 22:24 Range/Units D-Dimer, Quantitative 0.47 0.0-0.49 mg/L FEU B-Type Natriuretic Peptide 822.53 0-100 pg/mL Assessment Chest pain. Coronary artery disease s/p PTCA x 1 KEVIN to RCA (on aspirin and Plavix). Ischemic cardiomyopathy. Acute on chronic decompensated HFrEF, NYHA class III. Severe mitral insufficiency. Moderate tricuspid valve regurgitation. Moderate aortic insufficiency. Hypertension. Dyslipidemia. Chronic kidney disease. Type 2 diabetes mellitus. History of tobacco use. Plan/Recommendation I agree with your ongoing assessment and care of plan. Patient has been seen by Niyah Mills NP on my behalf, her and I discussed the plan with the patient. The patient was offered a nuclear stress test and is agreeable to undergo procedure. We will schedule the patient for nuclear stress test on 10/03/2024. Obtain transthoracic echocardiogram to evaluate cardiac function. Previous echocardiogram from 04/08/2024 reveals an EF of 30-35% with global hypokinesis. Continue guideline directed medical therapy for CHF as tolerated. Hold [id number] given patient history of frequent UTIs. Strict intake and output, daily weights, maintain fluid restriction. Preload and afterload reduction. Continue dual antiplatelet therapy and lipid-lowering agent. Close cardiac monitoring. Additional plan as per the hospital course. Plan discussed with: Patient NYHA Physical activity limitations: Class3(Marked) ordinary Date of Service: Oct 02, 2024 Billing Provider: BALDO KRUEGER MD Cardiology Common Codes: [id number] INP/OBS CARE (High) Cardiology Consultation Codes: [id number] CONSULT <45MIN BALDO KRUEGER MD Oct 02, 2024 16:45
[2024-10-03] VITALS (8 sets, daily range): BP systolic 108–137; BP diastolic 47–75; PULSE 66–96; RESP 17–19; TEMP 97.5–98.2; O2SAT 96–100
[2024-10-03 06:43] LABS: Basophils # (auto) 0 10 ^3/uL (0-0.2); Basophils % (auto) 0.6 % (0.0-2.0); Eosinophils # (auto) 0 10 ^3/uL (0-0.8); Eosinophils % (auto) 0.9 % (0.0-7.0); Hematocrit 37.5 % (36.0-46.0); Hemoglobin 11.9 g/dL (12.2-16.2); Lymphocytes # (auto) 2.6 10 ^3/uL (0.4-5.4); Mean Corpuscular Hemoglobin 24.9 pg (28.0-32.0); Mean Corpuscular Hgb Conc. 31.7 g/dL (32.0-36.0); Mean Corpuscular Volume 78.5 fL (80.0-100.0); Monocytes # (auto) 0.6 10 ^3/uL (0-1.3); Monocytes % (auto) 10.2 % (0.0-12.0); Neutrophils # (auto) 2.2 10 ^3/uL (1.6-8.6); Neutrophils % (auto) 40.3 % (37.0-80.0); Nucleated Red Blood Cells % 0.1 %; Platelet Count (auto) 183 10^3/uL (140-450); Red Blood Cells 4.78 10^6/uL (4.0-5.20); White Blood Cell 5.5 10^3/uL (4.4-10.8)
[2024-10-03 06:52] LABS: Anion Gap 9 (5-15); Carbon Dioxide 26 mmol/L (20-31); Potassium 3.8 mmol/L (3.5-5.1); Sodium 145 mmol/L (136-145)
[2024-10-03 06:54] LABS: Calcium 9.7 mg/dL (8.7-10.4)
[2024-10-03 06:58] LABS: BUN/Creatinine Ratio 12.3 (10.0-20.0); Blood Urea Nitrogen 14 mg/dL (9-23)
[2024-10-03 07:00] LABS: Chloride 110 mmol/L (98-107); Glucose 120 mg/dL (74-106)
[2024-10-03] MEDS: SPIRONOLACTONE 25 MG TAB PO SCH (09:08)
[2024-10-03] MEDS: REGADENOSON 0.4 MG/5 ML SYRG IV ONE ×2 (13:43→13:49)
--- NOTE | 2024-10-03 16:58 | DVHPN2 ---
Subjective Overnight events noted. Patient underwent Lexiscan report is pending. Reviewed: Care Plan Changes from previous H/P or p: No Changes Eyes: No Pain, No Vision change, No Conjunctivae inflammation, No Eyelid inflammation, No Other, No Redness ENT: No Ear pain, No Ear discharge, No Nose pain, No Nose discharge, No Nose congestion, No Mouth pain, No Mouth swelling, No Throat pain, No Throat swelling, No Other Cardiovascular: Chest Pain; No Palpitations, No Orthopnea, No Paroxysmal Noc. Dyspnea, No Edema, No Lt Headedness, No Other Respiratory: No Cough, No Dry; Shortness of breath, SOB with excertion; No Wheezing, No Hemoptysis, No Pleuritic Pain, No Sputum, No Other Gastrointestinal: No Nausea, No Vomiting, No Abdominal Pain, No Diarrhea, No Constipation, No Melena, No Hematochezia, No Other Genitourinary: No Dysuria, No Frequency, No Incontinence, No Hematuria, No Retention, No Other Musculoskeletal: No other, No neck pain, No shoulder pain, No arm pain, No back pain, No hand pain, No leg pain, No foot pain Skin: No Rash, No Lesions, No Jaundice, No Bruising, No Other Objective Vitals Vital Signs Date Time Temp Pulse Resp B/P (MAP) Pulse Ox O2 Delivery O2 Flow Rate FiO2 10/03/24 12:52 98.2 66 17 120/65 (83) 98 98.2 10/03/24 08:00 Room Air* 0 21 Intake/Output Intake and Output 10/03/24 06:59 Intake Total 1741 ml Output Total 1000 ml Balance 741 ml Intake Oral 1641 ml IV Total 100 ml Output Urine Total 1000 ml # Voids 3 Exam HEENT pupils are reactive Neck is supple CV is S1-S2 regular rate and rhythm Respiratory diminished breath sound bases GI posterior portion Extremity no edema [employer] no motor deficit. Medications Current Medications Medications Dose Ordered Sig/Xenia Route Start Time Stop Time Status Last Admin Dose Admin Docusate Sodium 100 mg BIDPRN PRN PO 10/02/24 01:45 Acetaminophen 650 mg Q6HP PRN PO 10/02/24 01:45 Acetaminophen/ Hydrocodone Bitart 1 tab Q4HP PRN PO 10/02/24 01:45 Ondansetron HCl 4 mg Q4HP PRN IV 10/02/24 01:45 Morphine Sulfate 2 mg Q4HPRN PRN IV 10/02/24 01:45 Nitroglycerin 0.4 mg Q5MINP PRN SL 10/02/24 01:45 10/02/24 05:14 0.4 MG Morphine Sulfate 2 mg Q30M PRN IV 10/02/24 01:45 Atorvastatin Calcium 40 mg DAILY PO 10/02/24 10:00 10/03/24 09:08 40 MG Sacubitril/ Valsartan 1 tab BID PO 10/02/24 10:00 10/03/24 09:08 1 TAB Furosemide 20 mg BID IV 10/02/24 10:00 10/03/24 09:09 20 MG Diagnostic Test (Pha) 1 strip ACHS 10/02/24 07:00 10/03/24 06:24 1 STRIP Insulin Human Regular ACHS SC 10/02/24 07:00 10/02/24 07:15 2 UNITS Dextrose 50 ml UD PRN IV 10/02/24 01:45 Clopidogrel Bisulfate 75 mg DAILY PO 10/02/24 10:00 10/03/24 09:09 75 MG Aspirin 81 mg DAILY PO 10/02/24 10:00 10/03/24 09:10 81 MG Pantoprazole Sodium 40 mg DAILY IV 10/02/24 10:00 10/03/24 09:10 40 MG Hydralazine HCl 10 mg Q6HP PRN IV 10/02/24 04:15 10/02/24 04:29 10 MG Spironolactone 25 mg DAILY PO 10/03/24 10:00 10/03/24 09:08 25 MG Carvedilol 3.125 mg Q12HR PO 10/02/24 22:00 10/03/24 09:13 3.125 MG Laboratory Results Laboratory Tests 10/03/24 05:55 Chemistry Test 10/03/24 05:55 Calcium Level 9.7 mg/dL (8.7-10.4) Assessment/Plan Assessment/Plan 69-year-old female with a known history of CAD status post PCI to RCA in the past, ischemic cardiomyopathy with the EF of 30-35%, diabetes mellitus type 2, hypertension initiation with the hospital with chest pain found to have 1. Chest pain with the elevated troponin rule out acute [place] 2. Ischemic cardiomyopathy with the EF of 30 35% 3. CAD status post PCI to RCA 4. Hypertension 5. Dyslipidemia 6. Diabetes mellitus type -follow up Lexiscan, cardiology follow up. Plan discussed with: Patient Date of Service: Oct 03, 2024 Billing Provider: EDDIE RICKETTS MD Common Visit Codes: NOT BILLABLE EDDIE RICKETTS MD Oct 03, 2024 16:58
[2024-10-04] VITALS (9 sets, daily range): BP systolic 112–162; BP diastolic 43–69; PULSE 80–92; RESP 16–20; TEMP 97.7–98.6; O2SAT 95–99
--- NOTE | 2024-10-04 00:53 | DVHPN2 ---
Progress Note - Dictate Date Seen: Oct 03, 2024 Medical Necessity Reason Pt with a Central, PICC or Fol: No Subjective Patient was seen and evaluated in follow up. Patient is complaining of chest pain and SOB. Patient is on 2 LPM NC. Patient underwent stress test today, final results are pending. Telemetry reviewed. vital signs Vital Sign Date Time Temp Pulse Resp B/P (MAP) Pulse Ox O2 Delivery O2 Flow Rate FiO2 10/03/24 22:02 87 125/64 10/03/24 21:00 98.2 18 99 98.2 10/03/24 20:25 Nasal Cannula* 2 28 medications Current Medications Medications Dose Ordered Sig/Xenia Route Start Time Stop Time Status Last Admin Dose Admin Docusate Sodium 100 mg BIDPRN PRN PO 10/02/24 01:45 Acetaminophen 650 mg Q6HP PRN PO 10/02/24 01:45 Acetaminophen/ Hydrocodone Bitart 1 tab Q4HP PRN PO 10/02/24 01:45 Ondansetron HCl 4 mg Q4HP PRN IV 10/02/24 01:45 Morphine Sulfate 2 mg Q4HPRN PRN IV 10/02/24 01:45 Nitroglycerin 0.4 mg Q5MINP PRN SL 10/02/24 01:45 10/02/24 05:14 0.4 MG Morphine Sulfate 2 mg Q30M PRN IV 10/02/24 01:45 Atorvastatin Calcium 40 mg DAILY PO 10/02/24 10:00 10/03/24 09:08 40 MG Sacubitril/ Valsartan 1 tab BID PO 10/02/24 10:00 10/03/24 22:01 1 TAB Furosemide 20 mg BID IV 10/02/24 10:00 10/03/24 09:09 20 MG Diagnostic Test (Pha) 1 strip ACHS 10/02/24 07:00 10/03/24 06:24 1 STRIP Insulin Human Regular ACHS SC 10/02/24 07:00 10/02/24 07:15 2 UNITS Dextrose 50 ml UD PRN IV 10/02/24 01:45 Clopidogrel Bisulfate 75 mg DAILY PO 10/02/24 10:00 10/03/24 09:09 75 MG Aspirin 81 mg DAILY PO 10/02/24 10:00 10/03/24 09:10 81 MG Pantoprazole Sodium 40 mg DAILY IV 10/02/24 10:00 10/03/24 09:10 40 MG Hydralazine HCl 10 mg Q6HP PRN IV 10/02/24 04:15 10/02/24 04:29 10 MG Spironolactone 25 mg DAILY PO 10/03/24 10:00 10/03/24 09:08 25 MG Carvedilol 3.125 mg Q12HR PO 10/02/24 22:00 10/03/24 22:02 3.125 MG objective GENERAL: Alert and oriented x 3. No acute distress. EYES: PERRL, EOMI. Anicteric. HENT: Moist mucous membranes. LUNGS: Clear to auscultation bilaterally. CARDIOVASCULAR: Irregular rate and rhythm. ABDOMEN: Soft, nontender and nondistended. EXTREMITIES: No edema. NEUROLOGIC: No focal neurological deficits. SKIN: Warm, dry. laboratory and microbiology Laboratory Tests 10/03/24 05:55 Test 10/03/24 05:55 Range/Units Serum Glucose 120 H 74-106 mg/dL Problem List Chest pain. Coronary artery disease s/p PTCA x 1 KEVIN to RCA (on aspirin and Plavix). Ischemic cardiomyopathy. Acute on chronic decompensated HFrEF, NYHA class III. Severe mitral insufficiency. Moderate tricuspid valve regurgitation. Moderate aortic insufficiency. Hypertension. Dyslipidemia. Chronic kidney disease. Type 2 diabetes mellitus. History of tobacco use. Assessment/Plan Continued all current supportive medical care. Transthoracic echocardiogram to evaluate cardiac function. Morphine and [place] for pain. Aspirin, Lipitor, Plavix. Coreg. Diuretics with Lasix. Nitro SL. GI prophylactics. Additional plan as per the hospital course. Plan discussed with: Patient BALDO KRUEGER MD Oct 04, 2024 00:53
[2024-10-04 07:17] LABS: Basophils # (auto) 0 10 ^3/uL (0-0.2); Eosinophils # (auto) 0.1 10 ^3/uL (0-0.8); Eosinophils % (auto) 1.1 % (0.0-7.0); White Blood Cell 5.2 10^3/uL (4.4-10.8)
[2024-10-04 07:20] LABS: Basophils % (auto) 0.4 % (0.0-2.0); Hematocrit 39.9 % (36.0-46.0); Hemoglobin 12.6 g/dL (12.2-16.2); Lymphocytes # (auto) 2.3 10 ^3/uL (0.4-5.4); Lymphocytes % (auto) 44.4 % (10.0-50.0); Mean Corpuscular Hemoglobin 24.7 pg (28.0-32.0); Mean Corpuscular Hgb Conc. 31.5 g/dL (32.0-36.0); Mean Corpuscular Volume 78.5 fL (80.0-100.0); Monocytes # (auto) 0.5 10 ^3/uL (0-1.3); Monocytes % (auto) 10.2 % (0.0-12.0); Neutrophils # (auto) 2.3 10 ^3/uL (1.6-8.6); Neutrophils % (auto) 43.9 % (37.0-80.0); Nucleated Red Blood Cells % 0.1 %; Platelet Count (auto) 191 10^3/uL (140-450); Red Blood Cells 5.09 10^6/uL (4.0-5.20); Red Cell Distribution Width 15.1 % (11.8-14.3)
[2024-10-04 07:26] LABS: Potassium 3.7 mmol/L (3.5-5.1); Sodium 145 mmol/L (136-145)
[2024-10-04 07:27] LABS: Anion Gap 10 (5-15); Carbon Dioxide 26 mmol/L (20-31)
[2024-10-04 07:28] LABS: Calcium 9.9 mg/dL (8.7-10.4)
[2024-10-04 07:30] LABS: Chloride 109 mmol/L (98-107)
[2024-10-04 07:33] LABS: BUN/Creatinine Ratio 15.2 (10.0-20.0); Blood Urea Nitrogen 17 mg/dL (9-23)
[2024-10-04 07:36] LABS: Glucose 119 mg/dL (74-106)
--- NOTE | 2024-10-04 11:27 | DVHSR ---
APPROVED REPORT Exam: Nuclear Stress Test BMI: 0 Stress Test Details HR Max Heart Rate (APMHR): 152.271550 bpm Target HR (85% APMHR): 129.166488 bpm BP ECG Stress ECG Conclusion foxed and reversible inferior wall defect noted lvef not reliable on this study, correlate to echo NM EXAM: Myocardial Perfusion REST/STRESS Imaging Protocol: Rest Tc-99m/Stress Tc-99m 1 day Resting Data Rest SPECT myocardial perfusion imaging was performed in supine position 60 minutes following the int ravenous injection of 10.5 mCi of Tc-99m Sestamibi. Time of rest injection: 10:08 Date: 10/04/2024 Time of rest imagin:08 Date: 10/04/2024 Administration Route: IV Administration Site: Left Arm Pharmacologic Stress Pharmacologic stress test was performed by injecting Regadenoson 0.4 mg IV push followed by the intra venous injection of 32.0 mCi of Tc-99m Sestamibi. Time of stress injection: 12:30 Date: 10/04/2024 Time of stress imagin:30 Date: 10/04/2024 Administration Route: IV Administration Site: Left Arm Stress only was performed in the Supine position. Comments Non-gated stress images performed 60 minutes after stress injection. Study performed by [facility] Nuclear Conclusion Nuclear Findings: positive for ischemia foxed and reversible inferior wall defect noted lvef not reliable on this study, correlate to echo
--- NOTE | 2024-10-04 18:55 | DVHPN2 ---
Subjective Overnight events noted. Patient underwent Lexiscan report is pending. Reviewed: Care Plan Changes from previous H/P or p: No Changes Eyes: No Pain, No Vision change, No Conjunctivae inflammation, No Eyelid inflammation, No Other, No Redness ENT: No Ear pain, No Ear discharge, No Nose pain, No Nose discharge, No Nose congestion, No Mouth pain, No Mouth swelling, No Throat pain, No Throat swelling, No Other Cardiovascular: Chest Pain; No Palpitations, No Orthopnea, No Paroxysmal Noc. Dyspnea, No Edema, No Lt Headedness, No Other Respiratory: No Cough, No Dry; Shortness of breath, SOB with excertion; No Wheezing, No Hemoptysis, No Pleuritic Pain, No Sputum, No Other Gastrointestinal: No Nausea, No Vomiting, No Abdominal Pain, No Diarrhea, No Constipation, No Melena, No Hematochezia, No Other Genitourinary: No Dysuria, No Frequency, No Incontinence, No Hematuria, No Retention, No Other Musculoskeletal: No other, No neck pain, No shoulder pain, No arm pain, No back pain, No hand pain, No leg pain, No foot pain Skin: No Rash, No Lesions, No Jaundice, No Bruising, No Other Objective Vitals Vital Signs Date Time Temp Pulse Resp B/P (MAP) Pulse Ox O2 Delivery O2 Flow Rate FiO2 10/04/24 17:00 98.5 80 18 127/69 (88) 95 98.5 10/04/24 08:00 Room Air* 0 21 Intake/Output Intake and Output 10/04/24 07:00 Intake Total 0 ml Balance 0 ml Intake Oral 0 ml # Voids 1 Exam HEENT pupils are reactive Neck is supple CV is S1-S2 regular rate and rhythm Respiratory diminished breath sound bases GI posterior portion Extremity no edema [employer] no motor deficit. Medications Current Medications Medications Dose Ordered Sig/Xenia Route Start Time Stop Time Status Last Admin Dose Admin Docusate Sodium 100 mg BIDPRN PRN PO 10/02/24 01:45 Acetaminophen 650 mg Q6HP PRN PO 10/02/24 01:45 Acetaminophen/ Hydrocodone Bitart 1 tab Q4HP PRN PO 10/02/24 01:45 Ondansetron HCl 4 mg Q4HP PRN IV 10/02/24 01:45 Morphine Sulfate 2 mg Q4HPRN PRN IV 10/02/24 01:45 Nitroglycerin 0.4 mg Q5MINP PRN SL 10/02/24 01:45 10/02/24 05:14 0.4 MG Morphine Sulfate 2 mg Q30M PRN IV 10/02/24 01:45 Atorvastatin Calcium 40 mg DAILY PO 10/02/24 10:00 10/04/24 10:22 40 MG Sacubitril/ Valsartan 1 tab BID PO 10/02/24 10:00 10/04/24 10:22 1 TAB Furosemide 20 mg BID IV 10/02/24 10:00 10/04/24 10:21 20 MG Diagnostic Test (Pha) 1 strip ACHS 10/02/24 07:00 10/03/24 06:24 1 STRIP Insulin Human Regular ACHS SC 10/02/24 07:00 10/02/24 07:15 2 UNITS Dextrose 50 ml UD PRN IV 10/02/24 01:45 Clopidogrel Bisulfate 75 mg DAILY PO 10/02/24 10:00 10/04/24 10:21 75 MG Aspirin 81 mg DAILY PO 10/02/24 10:00 10/04/24 10:22 81 MG Pantoprazole Sodium 40 mg DAILY IV 10/02/24 10:00 10/04/24 10:21 40 MG Hydralazine HCl 10 mg Q6HP PRN IV 10/02/24 04:15 10/02/24 04:29 10 MG Spironolactone 25 mg DAILY PO 10/03/24 10:00 10/04/24 10:22 25 MG Carvedilol 3.125 mg Q12HR PO 10/02/24 22:00 10/04/24 10:22 3.125 MG Laboratory Results Laboratory Tests 10/04/24 06:10 Chemistry Test 10/04/24 06:10 Calcium Level 9.9 mg/dL (8.7-10.4) Assessment/Plan Assessment/Plan 69-year-old female with a known history of CAD status post PCI to RCA in the past, ischemic cardiomyopathy with the EF of 30-35%, diabetes mellitus type 2, hypertension initiation with the hospital with chest pain found to have 1. Chest pain with the elevated troponin rule out acute [place] 2. Ischemic cardiomyopathy with the EF of 30 35% 3. CAD status post PCI to RCA 4. Hypertension 5. Dyslipidemia 6. Diabetes mellitus type -Lexiscan abnormal, cardiology follow up. -NPO after midnight for possible coronary angiogram. Plan discussed with: Patient Date of Service: Oct 04, 2024 Billing Provider: EDDIE RICKETTS MD Common Visit Codes: NOT BILLABLE EDDIE RICKETTS MD Oct 04, 2024 18:55
--- NOTE | 2024-10-04 22:38 | DVHPN2 ---
Progress Note - Dictate Date Seen: Oct 04, 2024 Medical Necessity Reason Pt with a Central, PICC or Fol: No Subjective Patient was seen and evaluated in follow up. Patient is on 2 LPM NC. Echocardiogram shows an EF of 30%, moderate degree aortic stenosis, dilated ll cardiac chambers. Patient underwent Lexiscan report is pending. Telemetry reviewed. vital signs Vital Sign Date Time Temp Pulse Resp B/P (MAP) Pulse Ox O2 Delivery O2 Flow Rate FiO2 10/04/24 21:00 97.7 92 19 132/43 (72) 95 97.7 10/04/24 20:30 Nasal Cannula* 2 28 Total Intake and Output 10/03/24 10/03/24 10/04/24 15:00 23:00 07:00 Intake Total 0 ml Balance 0 ml medications Current Medications Medications Dose Ordered Sig/Xenia Route Start Time Stop Time Status Last Admin Dose Admin Docusate Sodium 100 mg BIDPRN PRN PO 10/02/24 01:45 Acetaminophen 650 mg Q6HP PRN PO 10/02/24 01:45 Acetaminophen/ Hydrocodone Bitart 1 tab Q4HP PRN PO 10/02/24 01:45 Ondansetron HCl 4 mg Q4HP PRN IV 10/02/24 01:45 Morphine Sulfate 2 mg Q4HPRN PRN IV 10/02/24 01:45 Nitroglycerin 0.4 mg Q5MINP PRN SL 10/02/24 01:45 10/04/24 20:32 0.4 MG Morphine Sulfate 2 mg Q30M PRN IV 10/02/24 01:45 Atorvastatin Calcium 40 mg DAILY PO 10/02/24 10:00 10/04/24 10:22 40 MG Sacubitril/ Valsartan 1 tab BID PO 10/02/24 10:00 10/04/24 10:22 1 TAB Furosemide 20 mg BID IV 10/02/24 10:00 10/04/24 10:21 20 MG Diagnostic Test (Pha) 1 strip ACHS 10/02/24 07:00 10/03/24 06:24 1 STRIP Insulin Human Regular ACHS SC 10/02/24 07:00 10/02/24 07:15 2 UNITS Dextrose 50 ml UD PRN IV 10/02/24 01:45 Clopidogrel Bisulfate 75 mg DAILY PO 10/02/24 10:00 10/04/24 10:21 75 MG Aspirin 81 mg DAILY PO 10/02/24 10:00 10/04/24 10:22 81 MG Pantoprazole Sodium 40 mg DAILY IV 10/02/24 10:00 10/04/24 10:21 40 MG Hydralazine HCl 10 mg Q6HP PRN IV 10/02/24 04:15 10/02/24 04:29 10 MG Spironolactone 25 mg DAILY PO 10/03/24 10:00 10/04/24 10:22 25 MG Carvedilol 3.125 mg Q12HR PO 10/02/24 22:00 10/04/24 10:22 3.125 MG objective GENERAL: Alert and oriented x 3. No acute distress. EYES: PERRL, EOMI. Anicteric. HENT: Moist mucous membranes. LUNGS: Clear to auscultation bilaterally. CARDIOVASCULAR: Irregular rate and rhythm. ABDOMEN: Soft, nontender and nondistended. EXTREMITIES: No edema. NEUROLOGIC: No focal neurological deficits. SKIN: Warm, dry. laboratory and microbiology Laboratory Tests 10/04/24 06:10 Test 10/04/24 06:10 Range/Units Serum Glucose 119 H 74-106 mg/dL Problem List Chest pain. Coronary artery disease s/p PTCA x 1 KEVIN to RCA (on aspirin and Plavix). Ischemic cardiomyopathy. Acute on chronic decompensated HFrEF, NYHA class III. Severe mitral insufficiency. Moderate tricuspid valve regurgitation. Moderate aortic insufficiency. Hypertension. Dyslipidemia. Chronic kidney disease. Type 2 diabetes mellitus. History of tobacco use. Assessment/Plan Continued all current supportive medical care. Transthoracic echocardiogram to evaluate cardiac function. Morphine and [place] for pain. Aspirin, Lipitor, Plavix. Coreg. Diuretics with Lasix. IV Hydralazine for SBP >150. Nitro SL. GI prophylactics. Additional plan as per the hospital course. Plan discussed with: Patient BALDO KRUEGER MD Oct 04, 2024 22:38
[2024-10-05] VITALS (10 sets, daily range): BP systolic 99–138; BP diastolic 53–88; PULSE 59–89; RESP 16–20; TEMP 36.1; O2SAT 95–100
[2024-10-05 08:14] LABS: Basophils # (auto) 0 10 ^3/uL (0-0.2); Eosinophils # (auto) 0.1 10 ^3/uL (0-0.8); Monocytes # (auto) 0.6 10 ^3/uL (0-1.3); Red Cell Distribution Width 15.1 % (11.8-14.3)
[2024-10-05 08:15] LABS: Anion Gap 8 (5-15); Carbon Dioxide 30 mmol/L (20-31); Chloride 105 mmol/L (98-107); Potassium 4.2 mmol/L (3.5-5.1); Sodium 143 mmol/L (136-145)
[2024-10-05 08:16] LABS: Basophils % (auto) 0.3 % (0.0-2.0); Eosinophils % (auto) 1.2 % (0.0-7.0); Hematocrit 43.7 % (36.0-46.0); Hemoglobin 13.7 g/dL (12.2-16.2); Lymphocytes # (auto) 3.2 10 ^3/uL (0.4-5.4); Lymphocytes % (auto) 54.2 % (10.0-50.0); Mean Corpuscular Hemoglobin 24.8 pg (28.0-32.0); Mean Corpuscular Hgb Conc. 31.3 g/dL (32.0-36.0); Mean Corpuscular Volume 79.1 fL (80.0-100.0); Monocytes % (auto) 9.9 % (0.0-12.0); Neutrophils % (auto) 34.4 % (37.0-80.0); Nucleated Red Blood Cells % 0.1 %; Platelet Count (auto) 225 10^3/uL (140-450); Red Blood Cells 5.53 10^6/uL (4.0-5.20); White Blood Cell 5.9 10^3/uL (4.4-10.8)
[2024-10-05 08:18] LABS: Calcium 10.6 mg/dL (8.7-10.4); INR 0.95 (0.9-1.15); Partial Thromboplastin Time 26.8 SEC (24.5-34.5); Prothrombin Time 10.1 sec (9.3-11.8)
[2024-10-05 08:21] LABS: BUN/Creatinine Ratio 12.8 (10.0-20.0); Blood Urea Nitrogen 18 mg/dL (9-23); Glucose 124 mg/dL (74-106)
[2024-10-05] MEDS: ANGIOMAX 250 MG VIAL IV ONE (14:35)
[2024-10-05] MEDS: MIDAZOLAM HCL 2MG/2ML 2ml VIAL (1mg/ml) ONE (14:35)
[2024-10-05] MEDS: VERAPAMIL 2.5MG/ML INJ 2ML VIAL IV ONE (14:35)
[2024-10-05] MEDS: fentaNYL CITRATE 100 MCG/2 ML VL ONE ×2 (14:35→15:37)
[2024-10-05] MEDS: HEPARIN SODIUM (PORCINE) 5000 UNITS/ML 1ML VIAL ONE (14:35)
[2024-10-05] MEDS: SODIUM CHL 0.9% 0 ML ONE (14:35)
[2024-10-05] MEDS: LIDOCAINE 2%HCL (LOCAL ANESTH.) INJ 10ml MDV ONE (14:36)
[2024-10-05] MEDS: IODIXANOL 320MG/ML 100ML BTL IV ONE (14:39)
--- NOTE | 2024-10-05 15:55 | DVHOP2 ---
Operative Report - 2 Report Details Date: 10/05/24 Preop Diagnosis: CAD Postop Diagnosis: Cardiomyopathy Surgeon: Kofi Mac MD Anesthesiologist: Conscious sedation Anesthesia: Mac, Local Consent: The patient was informed of the risks and benefits of the procedure. These include but are not limited to complications of anesthesia, postoperative infection, incomplete relief of symptoms, recurrence of symptoms, damage to blood vessels, nerves and tendons, deep venous thrombosis, pulmonary embolism and possible need for repeat surgery in the future. Complications: No complications Findings: Normal coronaries. Nonischemic dilated cardiomyopathy. Indications for Surgery: Chest pain. Name of Procedure Performed Left heart catheterization. Bilateral cine coronary angiography. Left ventriculography. Procedure Details Procedure Details: Prior local anesthesia with 2% lidocaine to the right wrist and full informed consent obtained the patient is comfortable usual fashion followed by placement of a six Portuguese sheath into the right radial artery through which a Von catheter was used cannulation of both coronary ostia. A pigtail catheter was used ventriculography without complications. Hemodynamics: Aortic blood pressure was 100/50 end-diastolic pressure was 12 MmHg.without gradient across the aortic valve on pullback. Coronary anatomy. The RCA is a large dominant vessel it is normal in its proximal mid and distal segments. PDA and posterolateral branches are normal. Left main is large and normal. Left anterior descending is large and normal. Circumflex is large and normal. Tributary branches to both LAD and circumflex are normal including diagonals septals and marginal branches. Ventriculography in the MA projection shows global hypokinesis with an enlarged left ventricle. EF is approximately 25%. Impression: Mildly elevated left ventricular end-diastolic pressure at rest. Normal coronary arteries. Decreased left ventricular ejection fraction. Recommendations: Risk factor modification. Consider ICD. Condition Good Disposition 2 Still a Patient Date of Service: Oct 05, 2024 Billing Provider: KOFI MAC Sr., MD Cardiology Common Codes: PROCEDURE ONLY Cardiology Procedure Codes: 04261-UOLW HEART CATH W/INTRA INJ KOFI MAC Sr., MD Oct 05, 2024 15:55
--- NOTE | 2024-10-05 16:08 | DVHDS2 ---
Discharge Summary Date of Admission Oct 02, 2024 at 01:32 Date of Discharge: Oct 05, 2024 Labs/Diagnostic Data: Laboratory Results Test 10/05/24 07:22 10/05/24 05:53 10/04/24 21:30 10/02/24 10:21 White Blood Count 5.9 10^3/uL (4.4-10.8) Red Blood Count 5.53 10^6/uL (4.0-5.20) Hemoglobin 13.7 g/dL (12.2-16.2) Hematocrit 43.7 % (36.0-46.0) Mean Corpuscular Volume 79.1 fL (80.0-100.0) Mean Corpuscular Hemoglobin 24.8 pg (28.0-32.0) Mean Corpuscular Hemoglobin Concent 31.3 g/dL (32.0-36.0) Red Cell Distribution Width 15.1 % (11.8-14.3) Platelet Count 225 10^3/uL (140-450) Mean Platelet Volume 9.9 fL (6.9-10.8) Neutrophils (%) (Auto) 34.4 % (37.0-80.0) Lymphocytes (%) (Auto) 54.2 % (10.0-50.0) Monocytes (%) (Auto) 9.9 % (0.0-12.0) Eosinophils (%) (Auto) 1.2 % (0.0-7.0) Basophils (%) (Auto) 0.3 % (0.0-2.0) Neutrophils # (Auto) 2.0 10 ^3/uL (1.6-8.6) Lymphocytes # (Auto) 3.2 10 ^3/uL (0.4-5.4) Monocytes # (Auto) 0.6 10 ^3/uL (0-1.3) Eosinophils # (Auto) 0.1 10 ^3/uL (0-0.8) Basophils # (Auto) 0 10 ^3/uL (0-0.2) Nucleated Red Blood Cells 0.1 % Prothrombin Time 10.1 sec (9.3-11.8) Prothrombin Time INR 0.95 (0.9-1.15) Activated Partial Thromboplast Time 26.8 SEC (24.5-34.5) Sodium Level 143 mmol/L (136-145) Potassium Level 4.2 mmol/L (3.5-5.1) Chloride Level 105 mmol/L (98-107) Carbon Dioxide Level 30 mmol/L (20-31) Anion Gap 8 (5-15) Blood Urea Nitrogen 18 mg/dL (9-23) Creatinine 1.41 mg/dL (0.550-1.02) Glomerular Filtration Rate Calc 41 mL/min (>90) BUN/Creatinine Ratio 12.8 (10.0-20.0) Serum Glucose 124 mg/dL (74-106) Calcium Level 10.6 mg/dL (8.7-10.4) POC Glucose 129 mg/dl (70-106) Troponin I High Sensitivity 29 ng/L (</=34) Magnesium Level 1.8 mg/dL (1.6-2.6) Triglycerides Level 80 mg/dL (< 150) Cholesterol Level 144 mg/dL (< 200) LDL Cholesterol 59 mg/dL (< 100) HDL Cholesterol 64 mg/dL (40-59) Thyroid Stimulating Hormone (TSH) 1.25 uIU/mL (0.55-4.78) Test 10/02/24 05:48 10/01/24 22:24 Hemoglobin A1c 6.0 % A1C (<5.7) D-Dimer, Quantitative 0.47 mg/L FEU (0.0-0.49) B-Type Natriuretic Peptide 822.53 pg/mL (0-100) Other Laboratory Tests 10/05/24 07:22 Brief Hx & Hospital Course: 69-year-old female with a known history of CAD status post PCI to RCA in the past, ischemic cardiomyopathy with the EF of 30-35%, diabetes mellitus type 2, hypertension initiation with the hospital with chest pain found to have mildly elevated troponin. Eventually patient was admitted. Cardiology was consulted patient underwent Lexiscan which came back abnormal. Patient underwent coronary angiogram which shows large RCA. No evidence of any InStent restenosis. Patient will be discharged home with close follow up as an outpatient with the PCP as well as Cardiology for possible ICD placement. Patient's daughter is at bedside who was updated regarding current plan of care she understands verbalized understanding and agreeable to plan. Resume home medication. Condition at Discharge: Good Final Diagnosis/Problems List 69-year-old female with a known history of CAD status post PCI to RCA in the past, ischemic cardiomyopathy with the EF of 30-35%, diabetes mellitus type 2, hypertension initiation with the hospital with chest pain found to have 1. Chest pain with the elevated troponin rule out acute HI 2. Ischemic cardiomyopathy with the EF of 30 35% 3. CAD status post PCI to RCA 4. Hypertension 5. Dyslipidemia 6. Diabetes mellitus type Discharge Disposition: Home with Health Services Discharge Instruct/Medications Diet: Cardiac 2g Na,low cholest Activity: No Restrictions, As Tolerated Follow Up/Referral: Follow up with the PCP in one week Follow up with the Cardiology for outpatient ICD. Medications: Resume home medications Discharge Statement: "Patient was advised to return to the ER or call 911 if any headaches, dizziness, shortness of breath, chest pain, abdominal pain, bleeding, fevers, or worsening of medical condition. Patient was counseled about treatment plan, medications, possible side effects, patientverbalized understanding. All questions were answered to the best of my ability. This discharge took greater then 30 minutes in planning, reviewing documentation, counseling the patient, and discussing with other team members." ASSESSMENT ASSESSMENT Assessment 69-year-old female with a known history of CAD status post PCI to RCA in the past, ischemic cardiomyopathy with the EF of 30-35%, diabetes mellitus type 2, hypertension initiation with the hospital with chest pain found to have 1. Chest pain with the elevated troponin rule out acute HI 2. Ischemic cardiomyopathy with the EF of 30 35% 3. CAD status post PCI to RCA 4. Hypertension 5. Dyslipidemia 6. Diabetes mellitus type Date of Service: Oct 05, 2024 Billing Provider: EDDIE RICKETTS MD Common Visit Codes: NOT BILLABLE EDDIE RICKETTS MD Oct 05, 2024 16:08
--- NOTE | 2024-10-05 16:10 | DVHPN2 ---
Progress Note - Dictate Date Seen: Oct 05, 2024 Medical Necessity Reason Pt with a Central, PICC or Fol: No Subjective Patient was seen and evaluated in follow up. Patient is on 2 LPM NC. Nuclear Stress Test showed fixed and reversible inferior wall defect noted, positive for ischemia. Patient underwent left heart catheterization, bilateral cine coronary angiography, left ventriculography. Telemetry reviewed. vital signs Vital Sign Date Time Temp Pulse Resp B/P (MAP) Pulse Ox O2 Delivery O2 Flow Rate FiO2 10/05/24 09:00 98.0 78 18 125/70 (88) 99 98.0 10/05/24 08:00 Nasal Cannula* 2 28 Total Intake and Output 10/04/24 10/04/24 10/05/24 15:00 23:00 07:00 Intake Total 496 ml 200 ml Output Total 1000 ml Balance 496 ml -800 ml medications Current Medications Medications Dose Ordered Sig/Xenia Route Start Time Stop Time Status Last Admin Dose Admin Docusate Sodium 100 mg BIDPRN PRN PO 10/02/24 01:45 Acetaminophen 650 mg Q6HP PRN PO 10/02/24 01:45 Acetaminophen/ Hydrocodone Bitart 1 tab Q4HP PRN PO 10/02/24 01:45 Ondansetron HCl 4 mg Q4HP PRN IV 10/02/24 01:45 Morphine Sulfate 2 mg Q4HPRN PRN IV 10/02/24 01:45 Nitroglycerin 0.4 mg Q5MINP PRN SL 10/02/24 01:45 10/04/24 20:32 0.4 MG Morphine Sulfate 2 mg Q30M PRN IV 10/02/24 01:45 Atorvastatin Calcium 40 mg DAILY PO 10/02/24 10:00 10/04/24 10:22 40 MG Sacubitril/ Valsartan 1 tab BID PO 10/02/24 10:00 10/04/24 10:22 1 TAB Furosemide 20 mg BID IV 10/02/24 10:00 10/04/24 10:21 20 MG Diagnostic Test (Pha) 1 strip ACHS 10/02/24 07:00 10/05/24 06:31 1 STRIP Insulin Human Regular ACHS SC 10/02/24 07:00 10/02/24 07:15 2 UNITS Dextrose 50 ml UD PRN IV 10/02/24 01:45 Clopidogrel Bisulfate 75 mg DAILY PO 10/02/24 10:00 10/04/24 10:21 75 MG Aspirin 81 mg DAILY PO 10/02/24 10:00 10/04/24 10:22 81 MG Pantoprazole Sodium 40 mg DAILY IV 10/02/24 10:00 10/04/24 10:21 40 MG Hydralazine HCl 10 mg Q6HP PRN IV 10/02/24 04:15 10/02/24 04:29 10 MG Spironolactone 25 mg DAILY PO 10/03/24 10:00 10/04/24 10:22 25 MG Carvedilol 3.125 mg Q12HR PO 10/02/24 22:00 10/04/24 10:22 3.125 MG objective GENERAL: Alert and oriented x 3. No acute distress. EYES: PERRL, EOMI. Anicteric. HENT: Moist mucous membranes. LUNGS: Clear to auscultation bilaterally. CARDIOVASCULAR: Irregular rate and rhythm. ABDOMEN: Soft, nontender and nondistended. EXTREMITIES: No edema. NEUROLOGIC: No focal neurological deficits. SKIN: Warm, dry. laboratory and microbiology Laboratory Tests 10/05/24 07:22 Test 10/05/24 07:22 Range/Units Serum Glucose 124 H 74-106 mg/dL Problem List Chest pain. Coronary artery disease s/p PTCA x 1 KEVIN to RCA (on aspirin and Plavix). Ischemic cardiomyopathy. Acute on chronic decompensated HFrEF, NYHA class III. Severe mitral insufficiency. Moderate tricuspid valve regurgitation. Moderate aortic insufficiency. Hypertension. Dyslipidemia. Chronic kidney disease. Type 2 diabetes mellitus. History of tobacco use. Assessment/Plan Continued all current supportive medical care. Morphine and [place] for pain. Aspirin, Lipitor, Plavix. Coreg. Diuretics with Lasix. IV Hydralazine for SBP >150. Nitro SL. GI prophylactics. Additional plan as per the hospital course. Plan discussed with: Patient BALDO KRUEGER MD Oct 05, 2024 13:47
[2024-10-05] MEDS: ACETAMINOPHEN 325 MG TAB PO PRN (16:44)
--- NOTE | 2024-10-07 07:24 | ECG ---
[facility] Test Date: 2024-10-04 Test Time: 20:23:20 Pat Name: KENNY GERARDO Department: Respiratoy Room: [facility]3T A Gender: F Resource Teacher: DRU : 1955 Requested By: EDDIE RICKETTS Order Number: [id number] Reading MD: Fran Mac Measurements Intervals [place] Rate: 96 P: 46 LA: 180 QRS: -17 QRSD: 102 T: 117 QT: 378 QTc: 478 Interpretive Statements Sinus rhythm Ventricular bigeminy Probable left atrial enlargement Borderline left axis deviation Borderline repolarization abnormality Minimal ST elevation, anterior leads Baseline wander in lead(s) V4 Electronically Signed On 10-07-2024 9:31:18 PDT by Fran Mac Please click the below link to view image of tracing.
--- NOTE | 2024-10-11 12:32 | ECG ---
[facility] Test Date: 2024-10-02 Test Time: 05:00:06 Pat Name: KENNY GERARDO Department: ER Room: [facility] A Gender: F Information Services Consultant: DANGELO : 1955 Requested By: MARY CONDE Order Number: [id number] Reading MD: Fran Mac Measurements Intervals [place] Rate: 89 P: 67 LA: 177 QRS: 14 QRSD: 106 T: 86 QT: 370 QTc: 451 Interpretive Statements Sinus tachycardia Paired ventricular premature complexes Probable left atrial enlargement Nonspecific T abnormalities, lateral leads Electronically Signed On 10-11-2024 17:24:23 PDT by Fran Mac Please click the below link to view image of tracing.
--- NOTE | 2024-10-11 12:32 | ECG ---
[facility] Test Date: 2024-10-02 Test Time: 04:58:44 Pat Name: KENNY GERARDO Department: ER Room: [facility]3T A Gender: F Biometrics Experimentalist: DANGELO : 1955 Requested By: EDDIE RICKETTS Order Number: [id number] Reading MD: Fran Mac Measurements Intervals [place] Rate: 117 P: 0 DE: 0 QRS: 6 QRSD: 103 T: 74 QT: 378 QTc: 528 Interpretive Statements Atrial fibrillation Ventricular tachycardia, unsustained Borderline T abnormalities, lateral leads Electronically Signed On 10-11-2024 17:24:21 PDT by Fran Mca Please click the below link to view image of tracing.
== END 2024-10-05 19:56 | disposition home or self-care (01) | DRG 280 ==
LOC: ER 22:13 → OVERFLOW 10-02 01:32 → TELE-WESTW 10-02 06:11
PROVIDERS: ADMIT Nurse Practitioner Family; ATTEND Nurse Practitioner Family
PROC: B211YZZ Fluoroscopy of Multiple Coronary Arteries using Other Contrast (ICD-10-PCS; principal; 2024-10-05)
PROC: B215YZZ Fluoroscopy of Left Heart using Other Contrast (ICD-10-PCS; 2024-10-05)
PROC: 4A023N7 Measurement of Cardiac Sampling and Pressure, Left Heart, Percutaneous Approach (ICD-10-PCS; 2024-10-05)
DX: I13.0 Hypertensive heart and chronic kidney disease with heart failure and stage 1 through stage 4 chronic kidney disease, or unspecified chronic kidney disease (principal); I50.23 Acute on chronic systolic (congestive) heart failure; I21.9 Acute myocardial infarction, unspecified; I42.0 Dilated cardiomyopathy; E78.5 Hyperlipidemia, unspecified; N18.9 Chronic kidney disease, unspecified; E11.22 Type 2 diabetes mellitus with diabetic chronic kidney disease; I25.10 Atherosclerotic heart disease of native coronary artery without angina pectoris; I08.3 Combined rheumatic disorders of mitral, aortic and tricuspid valves; R00.1 Bradycardia, unspecified; I25.5 Ischemic cardiomyopathy; Z88.0 Allergy status to penicillin; Z91.09 Other allergy status, other than to drugs and biological substances; Z79.82 Long term (current) use of aspirin; Z79.899 Other long term (current) drug therapy; Z83.3 Family history of diabetes mellitus; Z80.3 Family history of malignant neoplasm of breast; Z87.891 Personal history of nicotine dependence; Z87.440 Personal history of urinary (tract) infections
CPT/HCPCS: 36415; 71045; 78452; 80048; 80061; 82962; 83036; 83735; 83880; 84443; 84484; 85025; 85379; 85610; 85730; 86850; 86900; 86901; 93005; 93017; 93306; 93458; 96374; 99152; G0378; J1815; J2003; J2250; J2470; Q9967

== ENCOUNTER 2024-11-15 20:55 | Emergency (ER) | payer MEDICARE, OTHER ==
[~2024-11-15] VITALS: Ht 162.6 cm; Wt 77.5 kg
[~2024-11-15 20:55] MED LIST changes: +CARV-214 PO; -DICL1GEL83 EX; -EMPA1TAB PO; -FURO1TAB33 GT; +FURO20TA3 PO; +POTA-36 PO; +SPIR25TA8 PO
--- NOTE | 2024-11-15 21:51 | DVH ---
EXAM: XY CHEST PORTABLE DATE OF SERVICE: 11/15/2024 09:24 PM INDICATION: sob TECHNIQUE: Single frontal view. COMPARISON: XY CHEST PORTABLE on DOS: 10/02/24, XY CHEST XRAY 1 VIEW on DOS: 05/14/24, XY CHEST PORTABLE on DOS: 04/07/24, XY CHEST PORTABLE on DOS: 08/11/23, XY CHEST XRAY 1 VIEW on DOS: 08/10/23 FINDINGS: Mild pulmonary vascular congestion. No focal consolidations. No pleural effusion or pneumothorax. Stable mild cardiomegaly. IMPRESSION: 1. Mild pulmonary vascular congestion. No focal consolidations. Stable mild cardiomegaly.
[2024-11-15 22:05] LABS: Hematocrit 36.2 % (36.0-46.0); Hemoglobin 11.4 g/dL (12.2-16.2); Mean Corpuscular Hemoglobin 25.0 pg (28.0-32.0); Mean Corpuscular Volume 79.4 fL (80.0-100.0); Nucleated Red Blood Cells % 0.3 %
[2024-11-15 22:20] LABS: Potassium 3.8 mmol/L (3.5-5.1)
[2024-11-15 22:21] LABS: Anion Gap 9 (5-15); Calcium 10.1 mg/dL (8.7-10.4); Carbon Dioxide 26 mmol/L (20-31); Chloride 110 mmol/L (98-107); Sodium 145 mmol/L (136-145)
[2024-11-15 22:26] LABS: BUN/Creatinine Ratio 13.0 (10.0-20.0); Blood Urea Nitrogen 18 mg/dL (9-23)
[2024-11-15 22:27] LABS: Glucose 125 mg/dL (74-106)
--- NOTE | 2024-11-15 22:44 | ED.PDOC ---
SOB-HPI HPI Comments 69 year old female presents to the ED with a chief complaint of shortness of breath onset today around 17:00. Patient states she was prescribed Albuterol inhaler, was initially improving shortness of breath, noticed it did not improve symptoms today. Patient states she is also experiencing headache. PMHx CAD, CHF, HTN, HLD, DM. Denies cough, cold, congestion, sore throat, dizziness, chest pain, nausea, vomiting, diarrhea, fevers, chills, abdominal pain, dysuria, hematuria. No other associated symptoms, modifiers, recent injuries or sick contacts present at this time. 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 LENSES History Family History Family History: Unknown Social History Smoker: Non-Smoker Alcohol: Denies ETOH Use Drugs: Denies Drug Use Lives In: Home Constitutional: denies: chills, diaphoresis, fatigue, fever, malaise, sweats, weakness, others EENTM: denies: blurred vision, double vision, ear bleeding, ear discharge, ear drainage, ear pain, ear ringing, eye pain, eye redness, hearing loss, mouth pain, mouth swelling, nasal discharge, nose bleeding, nose congestion, nose pain, photophobia, tearing, throat pain, throat swelling, voice changes, others Respiratory: reports: shortness of breath; denies: cough, hemoptysis, orthopnea, SOB at rest, SOB with excertion, stridor, wheezing, others Cardiovascular: denies: chest pain, dizzy spells, diaphoresis, Dyspnea on exertion, edema, irregular heart beat, left arm pain, lightheadedness, palpitations, PND, syncope, others Gastrointestinal: denies: abdomen distended, abdominal pain, blood streaked bowels, constipated, diarrhea, dysphagia, difficulty swallowing, hematemesis, melena, nausea, poor appetite, poor fluid intake, rectal bleeding, rectal pain, vomiting, others Genitourinary: denies: abnormal vagina bleeding, burning, dyspareunia, dysuria, flank pain, frequency, hematuria, incontinence, pain, , vagina discharge, urgency, others Neurological: reports: headache; denies: dizziness, fainting, left sided numbness, left sided weakness, numbness, paresthesia, pre-existing deficit, right sided numbness, right sided weakness, seizure, speech problems, tingling, tremors, weakness, others Musculoskeletal: denies: back pain, gout, joint pain, joint swelling, muscle pain, muscle stiffness, neck pain, others Integumetry: denies: bruises, change in color, change in hair/nails, dryness, laceration, lesions, lumps, rash, wounds, others Allergic/Immunocompromised: denies: Difficulty Healing, Frequent Infections, Hives, Itching, others Hematologic/Lymphatic: denies: anemia, blood clots, easy bleeding, easy bruising, swollen glands, others Endocrine: denies: excessive hunger, excessive sweating, excessive thirst, excessive urination, flushing, intolerance to cold, intolerance to heat, unexplained weight gain, unexplained weight loss, others Psychiatric: denies: anxiety, bipolar disorder, depression, hopeless, panic disorder, schizophrenia, sleepless, suicidal, others All Other Systems: Reviewed and Negative Physical Exam General Appearance: No Apparent Distress, Normal HEENT: Normal ENT Inspection, Pharynx Normal, TMs Normal Neck: Full Range of Motion, Non-Tender, Normal, Normal Inspection Respiratory: Chest Non-Tender, Lungs Clear, No Accessory Muscle Use, No Respiratory Distress, Normal Breath Sounds Cardiovascular: No Edema, No JVD, No Murmur, No Gallop, Normal Peripheral Pulses, Regular Rate/Rhythm Breast Exam: Deferred Gastrointestinal: No Organomegaly, Non Tender, No Pulsatile Mass, Normal Bowel Sounds, Soft Genitalia: Deferred Pelvic: Deferred Rectal: Deferred Extremities: No calf tenderness, Normal capillary refill, Normal inspection, Normal range of motion, Non-tender, No pedal edema Musculoskeletal : Apperance: Normal Neurologic: Alert, 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 Was a procedure done?: No Differential Dx Differential Diagnosis: CHF, COPD, Pneumonia X-Ray, Labs, Meds, VS Vital Signs Date Time Temp Pulse Resp B/P (MAP) Pulse Ox O2 Delivery O2 Flow Rate FiO2 11/15/24 21:13 122 11/15/24 21:02 97.9 55 20 154/45 (81) 98 97.9 Lab Test 11/15/24 22:25 11/15/24 21:33 11/15/24 21:15 Range/Units Troponin I High Sensitivity 52 *H 50 *H </=34 ng/L White Blood Count 6.6 4.4-10.8 10^3/uL Red Blood Count 4.56 4.0-5.20 10^6/uL Hemoglobin 11.4 L 12.2-16.2 g/dL Hematocrit 36.2 36.0-46.0 % Mean Corpuscular Volume 79.4 L 80.0-100.0 fL Mean Corpuscular Hemoglobin 25.0 L 28.0-32.0 pg Mean Corpuscular Hemoglobin Concent 31.4 L 32.0-36.0 g/dL Red Cell Distribution Width 15.6 H 11.8-14.3 % Platelet Count 218 140-450 10^3/uL Mean Platelet Volume 10.2 6.9-10.8 fL Neutrophils (%) (Auto) 50.6 37.0-80.0 % Lymphocytes (%) (Auto) 39.4 10.0-50.0 % Monocytes (%) (Auto) 8.5 0.0-12.0 % Eosinophils (%) (Auto) 0.9 0.0-7.0 % Basophils (%) (Auto) 0.6 0.0-2.0 % Neutrophils # (Auto) 3.4 1.6-8.6 10 ^3/uL Lymphocytes # (Auto) 2.6 0.4-5.4 10 ^3/uL Monocytes # (Auto) 0.6 0-1.3 10 ^3/uL Eosinophils # (Auto) 0.1 0-0.8 10 ^3/uL Basophils # (Auto) 0 0-0.2 10 ^3/uL Nucleated Red Blood Cells 0.3 % Sodium Level 145 136-145 mmol/L Potassium Level 3.8 3.5-5.1 mmol/L Chloride Level 110 H 98-107 mmol/L Carbon Dioxide Level 26 20-31 mmol/L Anion Gap 9 5-15 Blood Urea Nitrogen 18 9-23 mg/dL Creatinine 1.38 H 0.550-1.02 mg/dL Glomerular Filtration Rate Calc 42 >90 mL/min BUN/Creatinine Ratio 13.0 10.0-20.0 Serum Glucose 125 H 74-106 mg/dL Calcium Level 10.1 8.7-10.4 mg/dL B-Type Natriuretic Peptide 737.83 0-100 pg/mL POC Glucose 139 H 70-106 mg/dl [facility] [id number] [place] [id number] Ph: [phone] DIAGNOSTIC IMAGING Diagnostic Imaging Report : [id number] Signed PATIENT: KENNY GERARDO ACCT: [id number] UNIT: [id number] : 1955 LOC: ER ROOM / BED: / AGE / SEX: 69 / F ADM STATUS: REG ER SERVICE 23 ORDERING PHYSICIAN: PRIETO THOMAS MD PROCEDURE(s): CXRP - CHEST PORTABLE REASON: sob ORDER NUMBER(s): [id number], ACCESSION NUMBER(s): [id number] EXAM: XY CHEST PORTABLE DATE OF SERVICE: 11/15/2024 09:24 PM INDICATION: sob TECHNIQUE: Single frontal view. COMPARISON: XY CHEST PORTABLE on DOS: 10/02/24, XY CHEST XRAY 1 VIEW on DOS: 05/14/24, XY CHEST PORTABLE on DOS: 04/07/24, XY CHEST PORTABLE on DOS: 08/11/23, XY CHEST XRAY 1 VIEW on DOS: 08/10/23 FINDINGS: Mild pulmonary vascular congestion. No focal consolidations. No pleural effusion or pneumothorax. Stable mild cardiomegaly. IMPRESSION: 1. Mild pulmonary vascular congestion. No focal consolidations. Stable mild cardiomegaly. ATED BY: REGIS ARREDONDO MD DICTATED DATE/TIME: 11/15/242148 SIGNED BY: REGIS ARREDONDO MD SIGNED DATE/TIME: 11/15/242148 CC: Time of 1ST Reevaluation: 22:58 Reevaluation 1ST: Unchanged Patient Education/Counseling: Diagnosis, Treatment, Prognosis Family Education/Counseling: No Family Present Additional Information The following tests were ordered, and results were reviewed by me: TROP -x3, EKG-x3, BMP, BNP, CBC, UA, XY CHEST Additional Information was gathered from interviewing the following independent historians: EMS I reviewed and agreed with the following test results read by other providers: XY CHEST I discussed treatment and results with medical personnel and: patient Comprehensive systems review obtained and negative except for what is stated in the HPI. SEPSIS Sepsis Screen Date sepsis recognized/suspect: Nov 15, 2024 Time Sepsis recognized/suspect: 2101 Recent Procedure: No On Antibiotic Therapy: No Respiratory Rate >20: No Heart Rate >90: No Temp<36 C (96.8 F) or >38.3 C: No SBP <90 or MAP <65 mmHG: No New Acute Mental Status Change: No Is the patient on CPAP, BIPAP,: No Physician Orders Urinalysis (11/15/24 21:24) Chest Portable (11/15/24 21:24) Troponin-I Hs (11/16/24 00:24) Electrocardigram (11/15/24 21:34) Electrocardigram (11/15/24 22:34) Electrocardigram (11/16/24 00:34) Vital Signs Date Time Temp Pulse Resp B/P (MAP) Pulse Ox O2 Delivery O2 Flow Rate FiO2 11/15/24 21:13 122 11/15/24 21:02 97.9 55 20 154/45 (81) 98 97.9 Laboratory Tests Test 11/15/24 21:33 White Blood Count 6.6 10^3/uL (4.4-10.8) Departure 1 Departure Time of Disposition: 00:07 (Patient's troponins are at her baseline. Patient is feeling significantly better would like to go home. We will discharge patient home with outpatient follow up) Impression: Primary Impression: COPD exacerbation Disposition: HOME / SELF CARE / HOMELESS Condition: Stable Additional Instructions: You likely had a COPD exacerbation. You should use your inhaler as directed. Your prescribed steroids and azithromycin. Please take as directed. It is important to follow up with the regular doctor within 1 week. If your symptoms worsen or you have any other concerns please return to the emergency room. e-Prescriptions Prednisone (Prednisone) 20 Mg Tab 40 MG PO DAILY for 5 Days, #10 MG Prov: PRIETO THOMAS MD 11/16/24 Azithromycin (ZITHROMAX TABLET) 250 Mg Tb 250 MG PO DAILY for 5 Days, #5 TAB Prov: PRIETO THOMAS MD 11/16/24 Discharged With: Self Critical Care Note Critical Care Time?: No Stability Stability form required: No Heart Score Heart Score: Heart Score Response (Comments) Value History Slightly Suspicious 0 EKG Normal 0 Age >65 2 Risk Factors 1 or 2 risk factors 1 Troponin 1-2 x's Normal limit 1 Total 4 I personally scribed for PRIETO THOMAS MD ([email or web address]) on 11/15/24 at 22:44. Electronically submitted by Terrie Anderson ([email or web address]). I personally scribed for PRIETO THOMAS MD ([email or web address]) on 11/15/24 at 22:49. Electronically submitted by Terrie Anderson ([email or web address]). I personally scribed for PRIETO THOMAS MD ([email or web address]) on 11/15/24 at 22:54. Electronically submitted by Terrie Anderson ([email or web address]). PRIETO THOMAS MD Nov 15, 2024 22:44
[2024-11-16] MEDS ORDERED: AZIT-185 PO (00:08)
[2024-11-16] MEDS ORDERED: PRED20TA2 PO (00:08)
[2024-11-16 00:16] VITALS: BP 160/64; PULSE 50; RESP 18; TEMP 97.9
[2024-11-16 00:24] VITALS: O2SAT 97
--- NOTE | 2024-11-16 07:35 | ECG ---
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
== END 2024-11-16 00:25 | disposition home or self-care (01) ==
LOC: ER 20:55
DX: J44.1 Chronic obstructive pulmonary disease with (acute) exacerbation (principal); I11.0 Hypertensive heart disease with heart failure; I50.9 Heart failure, unspecified; E11.9 Type 2 diabetes mellitus without complications; E78.5 Hyperlipidemia, unspecified; I25.10 Atherosclerotic heart disease of native coronary artery without angina pectoris; Z98.890 Other specified postprocedural states
CPT/HCPCS: 36415; 71045; 80048; 82947; 82962; 83880; 84484; 85025; 93005

== ENCOUNTER 2025-02-11 11:46 | Inpatient (IN) | payer OTHER ==
[~2025-02-11] VITALS: Ht 162.6 cm; Wt 76.8 kg
[~2025-02-11 11:46] MED LIST changes: +AZIT-185 PO; +PRED20TA2 PO
--- NOTE | 2025-02-11 12:10 | ECG ---
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
--- NOTE | 2025-02-11 12:42 | DVH ---
EXAM: XY CHEST PORTABLE CLINICAL HISTORY: sob TECHNIQUE: Single PA view of the chest WID: COMPARISON: XY CHEST PORTABLE on DOS: 11/15/24 FINDINGS: Lines and tubes: None Chest: Mild cardiomegaly. Calcified plaque projects over the aortic arch. No pleural effusion, pneumothorax, or consolidation. The osseous structures are grossly intact. IMPRESSION: 1. Mild cardiomegaly.
[2025-02-11 13:15] LABS: Hemoglobin 12.3 g/dL (12.2-16.2); Mean Corpuscular Hemoglobin 24.8 pg (28.0-32.0)
[2025-02-11 13:17] LABS: Hematocrit 39.5 % (36.0-46.0); Mean Corpuscular Volume 79.4 fL (80.0-100.0); Nucleated Red Blood Cells % 0.1 %
[2025-02-11 13:21] LABS: Urine Protein, UAD Negative (Negative)
--- NOTE | 2025-02-11 13:27 | ED.PDOC ---
History of Present Illness HPI Comments 69 y/o obese F presents with c/c of nonradiating, substernal chest pain and shortness of breath. Patient endorses on sudden additional onset of chest pain, this morning, after dealing with intermittent difficulty breathing since last night. Pain is described as stabbing in quality and is rated a 3/10 in severity. Denial of any cough, congestion, nausea, vomiting, fever, or further acute symptoms. Significant history of CAD s/p PCI to RCA, DM II, HLD, HTN, and ischemic cardiomyopathy with reduced EF. Chief Complaint: Shortness of Breath Time Seen by MD: 12:15 Primary Care Provider: PHYLLIS Reviewed Notes: Nurses Notes, Medications, Allergies Allergies: Coded Allergies: Penicillins (Verified Adverse Reaction, Severe, 10/18/14) Uncoded Allergies: ADHESIVE (Allergy, Unknown, 12/22/17) Home Meds Active Scripts Prednisone (Prednisone) 20 Mg Tab, 40 MG PO DAILY for 5 Days, #10 MG Prov:PRIETO THOMAS MD 11/16/24 Azithromycin (ZITHROMAX TABLET) 250 Mg Tb, 250 MG PO DAILY for 5 Days, #5 TAB Prov:PRIETO THOMAS MD 11/16/24 Sacubitril-Valsartan (Entresto 24-26 mg) 1 Tab Tab, 1 TAB PO BID, #60 TAB Prov:EDDIE RICKETTS MD 08/13/23 Clopidogrel Bisulfate (CLOPIDOGREL) 75 Mg Tab, 75 MG PO DAILY, #60 TAB Prov:EDDIE RICKETTS MD 08/13/23 Atorvastatin Calcium (ATORVASTATIN CALCIUM) 20 Mg Tab, 40 MG PO HS, #60 TAB Prov:EDDIE RICKETTS MD 08/13/23 Pantoprazole Sodium Sesquihydr (Pantoprazole Sodium Dr) 40 Mg Tab, 40 MG PO DAILY, #60 TAB Prov:VENANCIO SHARP MD 07/02/23 Albuterol Sulfate (Albuterol Sulfate Hfa) 108 Mcg/Act Aer, 1 PUFF IN Q4HPRN PRN, #1 INH As needed for cough nasal congestion shortness of breath or wheeze Prov:VASU NATION RACEHORSE TRAINER 06/14/23 Reported Medications Carvedilol (COREG) 3.125 Mg Tab, 6.25 MG PO BID, TAB HOLD FOR SBP 100MMHG OR LESS AND/OR 60MMHG OR LESS. 10/02/24 Potassium Chloride (POTASSIUM CHLORIDE CR) 10 Meq Tb, 8 MEQ PO DAILY, TAB TAKE ONLY TOGETHER WITH LASIX. 10/02/24 Furosemide (Furosemide) 20 Mg Tab, 20 MG PO BID, TAB HOLD FOR SBP 100MMHG OR LESS AND/OR 60MMHG OR LESS. 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 History Family History Family History: Unknown Social History Smoker: Non-Smoker Alcohol: Denies ETOH Use Drugs: Denies Drug Use Lives In: Home All Other Systems: Reviewed and Negative (Comprehensive review of systems are negative unless stated in HPI) Physical Exam General Appearance: Moderate Distress HEENT: Normal ENT Inspection, Pharynx Normal, TMs Normal Neck: Full Range of Motion, Non-Tender, Normal, Normal Inspection Respiratory: Accessory Muscle Use, Other (Coarse breath sounds) Cardiovascular: No Edema, No JVD, No Murmur, No Gallop, Normal Peripheral Pulses, Regular Rate/Rhythm Breast Exam: Deferred Gastrointestinal: No Organomegaly, Non Tender, No Pulsatile Mass, Normal Bowel Sounds, Soft Genitalia: Deferred Pelvic: Deferred Rectal: Deferred Extremities: No calf tenderness, Normal capillary refill, Normal inspection, No rmal range of motion, Non-tender, No pedal edema Musculoskeletal : Apperance: Normal Neurologic: Alert, [employer]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 Was a procedure done?: No EKG EKG : Pulse Rate (adult): 98 [place]: Normal Cardiac Rhythm: NSR Block: None Hypertrophy: None ST: Normal Comments Ventricular bigeminy Differential Dx Considerations may include: OR, PE, ACS, URI, PNA, angina, anxiety, gastritis, gastroenteritis, CAD, cardiomyopathy, viral syndrome, among others X-Ray, Labs, Meds, VS Vital Signs Date Time Temp Pulse Resp B/P (MAP) Pulse Ox O2 Delivery O2 Flow Rate FiO2 02/11/25 14:22 97 Room Air* 0 21 02/11/25 14:17 77 17 99 Room Air* 0 21 02/11/25 13:27 98 02/11/25 12:35 97.9 77 16 134/67 (89) 98 97.9 02/11/25 12:00 98 02/11/25 11:49 96.4 40 18 136/48 97 96.4 Lab Test 02/11/25 13:47 02/11/25 12:49 02/11/25 12:23 Range/Units Troponin I High Sensitivity 23 25 </=34 ng/L White Blood Count 4.4 4.4-10.8 10^3/uL Red Blood Count 4.97 4.0-5.20 10^6/uL Hemoglobin 12.3 12.2-16.2 g/dL Hematocrit 39.5 36.0-46.0 % Mean Corpuscular Volume 79.4 L 80.0-100.0 fL Mean Corpuscular Hemoglobin 24.8 L 28.0-32.0 pg Mean Corpuscular Hemoglobin Concent 31.3 L 32.0-36.0 g/dL Red Cell Distribution Width 14.5 H 11.8-14.3 % Platelet Count 210 140-450 10^3/uL Mean Platelet Volume 10.2 6.9-10.8 fL Neutrophils (%) (Auto) 49.1 37.0-80.0 % Lymphocytes (%) (Auto) 42.4 10.0-50.0 % Monocytes (%) (Auto) 7.2 0.0-12.0 % Eosinophils (%) (Auto) 0.6 0.0-7.0 % Basophils (%) (Auto) 0.7 0.0-2.0 % Neutrophils # (Auto) 2.2 1.6-8.6 10 ^3/uL Lymphocytes # (Auto) 1.9 0.4-5.4 10 ^3/uL Monocytes # (Auto) 0.3 0-1.3 10 ^3/uL Eosinophils # (Auto) 0 0-0.8 10 ^3/uL Basophils # (Auto) 0 0-0.2 10 ^3/uL Nucleated Red Blood Cells 0.1 % Sodium Level 145 136-145 mmol/L Potassium Level 4.4 3.5-5.1 mmol/L Chloride Level 109 H 98-107 mmol/L Carbon Dioxide Level 28 20-31 mmol/L Anion Gap 8 5-15 Blood Urea Nitrogen 21 9-23 mg/dL Creatinine 1.44 H 0.550-1.02 mg/dL Glomerular Filtration Rate Calc 40 >90 mL/min BUN/Creatinine Ratio 14.6 10.0-20.0 Serum Glucose 183 H 74-106 mg/dL Calcium Level 9.5 8.7-10.4 mg/dL B-Type Natriuretic Peptide 265.61 0-100 pg/mL Urine Color Yellow Yellow Urine Clarity Turbid H Clear Urine pH 5.5 5.0-9.0 Urine Specific [place] 1.026 1.001-1.035 Urine Protein Negative Negative Urine Ketones Negative Negative Urine Blood Negative Negative /uL Urine Nitrite Negative Negative Urine Bilirubin Negative Negative Urine Urobilinogen Normal Negative mg/dL Urine Leukocyte Esterase Trace Negative /uL Urine RBC 1 0 - 4 /hpf Urine Microscopic WBC 2 0-5 /HPF Urine Squamous Epithelial Cells Few <5 /hpf Urine Bacteria None seen None Seen /hpf Urine Mucus Few None Seen Urine Glucose Normal Normal mg/dL [place] [id number] DIAGNOSTIC IMAGING Diagnostic Imaging Report : [id number] Signed PATIENT: KENNY GERARDO ACCT: [id number] UNIT: [id number] : 1955 LOC: ER ROOM / BED: / AGE / SEX: 69 / F ADM STATUS: REG ER SERVICE 1213 ORDERING PHYSICIAN: DACIA AGRAWAL MD PROCEDURE(s): CXRP - CHEST PORTABLE REASON: sob ORDER NUMBER(s): [id number], ACCESSION NUMBER(s): [id number] EXAM: XY CHEST PORTABLE CLINICAL HISTORY: sob TECHNIQUE: Single PA view of the chest WID: COMPARISON: XY CHEST PORTABLE on DOS: 11/15/24 FINDINGS: Lines and tubes: None Chest: Mild cardiomegaly. Calcified plaque projects over the aortic arch. No pleural effusion, pneumothorax, or consolidation. The osseous structures are grossly intact. IMPRESSION: 1. Mild cardiomegaly. ATED BY: CEASAR TURNER MD DICTATED DATE/TIME: 02/11/25 1240 SIGNED BY: CEASAR TURNER MD SIGNED DATE/TIME: 02/11/25 1240 CC: Patient alert. Complaining of shortness a breath chest pain. Vitals stable. Answering questions. She is using accessory muscles. Chest x-ray reviewed cardiomegaly. BNP elevated. Was given Lasix. Blood sugar elevated. Cardiac marker within normal limits. EKG reviewed does not show any acute changes. Explained to the patient. Continue monitoring. Time of 1ST Reevaluation: 12:45 Reevaluation 1ST: Unchanged Patient Education/Counseling: Diagnosis, Treatment Family Education/Counseling: No Family Present SEPSIS Sepsis Screen Date sepsis recognized/suspect: Feb 11, 2025 Time Sepsis recognized/suspect: 1153 Recent Procedure: No On Antibiotic Therapy: No Respiratory Rate >20: No Heart Rate >90: No Temp<36 C (96.8 F) or >38.3 C: No SBP <90 or MAP <65 mmHG: No New Acute Mental Status Change: No Is the patient on CPAP, BIPAP,: No Physician Orders Chest Portable (02/11/25 12:13) Troponin-I Hs (02/11/25 15:13) Vital Signs Date Time Temp Pulse Resp B/P (MAP) Pulse Ox O2 Delivery O2 Flow Rate FiO2 02/11/25 14:22 97 Room Air* 0 21 02/11/25 14:17 77 17 99 Room Air* 0 21 02/11/25 13:27 98 02/11/25 12:35 97.9 77 16 134/67 (89) 98 97.9 02/11/25 12:00 98 02/11/25 11:49 96.4 40 18 136/48 97 96.4 Laboratory Tests Test 02/11/25 12:49 White Blood Count 4.4 10^3/uL (4.4-10.8) Departure 1 Departure Time of Disposition: 14:03 Impression: Primary Impression: CHF exacerbation Qualified Codes: I50.43 - Acute on chronic combined systolic (congestive) and diastolic (congestive) heart failure Additional Impression: Chest pain of unknown etiology Disposition: 09 ADMITTED INPATIENT Admit to: Med Surg Condition: Guarded Critical Care Note Critical Care Time?: Yes (90 min-critical care time only) Stability Stability form required: No Heart Score Heart Score: Heart Score Response (Comments) Value History Moderate Suspicious 1 EKG Normal 0 Age >65 2 Risk Factors >3 or Hx ASHD 2 Troponin Normal limit 0 Total 5 I personally scribed for DACIA AGRAWAL MD ([email or web address]) on 02/11/25 at 13:27. Electronically submitted by Willy Osborne ([email or web address]). I personally scribed for DACIA AGRAWAL MD ([email or web address]) on 02/11/25 at 14:32. Electronically submitted by Willy Osborne ([email or web address]). DACIA AGRAWAL MD Feb 11, 2025 13:27
[2025-02-11 13:28] LABS: Potassium 4.4 mmol/L (3.5-5.1); Sodium 145 mmol/L (136-145)
[2025-02-11 13:29] LABS: Anion Gap 8 (5-15); Calcium 9.5 mg/dL (8.7-10.4); Carbon Dioxide 28 mmol/L (20-31)
[2025-02-11 13:30] LABS: Chloride 109 mmol/L (98-107)
[2025-02-11 13:34] LABS: BUN/Creatinine Ratio 14.6 (10.0-20.0); Blood Urea Nitrogen 21 mg/dL (9-23)
[2025-02-11 13:40] LABS: Glucose 183 mg/dL (74-106)
[2025-02-11 14:17] VITALS: PULSE 77; RESP 17; O2SAT 99
[2025-02-11] MEDS: FUROSEMIDE 40 MG/4 ML VIAL IV ONE (14:34)
[2025-02-11] MEDS ORDERED: hydrALAZINE HCL 20 MG/ML VL IV PRN (21:45)
[2025-02-11] MEDS ORDERED: HYDROcodone-ACET 5/325MG TAB PO PRN (21:45)
[2025-02-11] MEDS ORDERED: ONDANSETRON HCL 4 MG/2 ML VIAL IV PRN (21:45)
[2025-02-11] MEDS ORDERED: NITROGLYCERIN 0.4 MG SL TAB SL PRN (21:45)
[2025-02-11] MEDS ORDERED: MORPHINE SULFATE INJ 2 MG/ml SYRG IV PRN (21:45)
[2025-02-11 21:58] LABS: Triglycerides 93 mg/dL (< 150)
[2025-02-11 22:00] LABS: Cholesterol 138 mg/dL (< 200); HDL Cholesterol 54 mg/dL (40-59)
[2025-02-11] MEDS: FAMOTIDINE 20 MG TAB PO SCH (22:21)
[2025-02-11 22:41] VITALS: PULSE 57; RESP 20; O2SAT 97
[2025-02-12] VITALS (9 sets, daily range): BP systolic 112–139; BP diastolic 52–89; PULSE 61–84; RESP 16–19; TEMP 97.3–98; O2SAT 95–100
--- NOTE | 2025-02-12 01:47 | DVHHP2 ---
Admitting Diagnosis: Chest Pain, Dyspnea History of Present Illness History Source: Patient Exam Limitations: No limitations HPI Mrs. Katy Sloan is a 69 year old female who presents with a chief complaint of nonradiating, substernal chest pain and shortness of breath. Patient endorses on sudden additional onset of chest pain, yesterday morning, after dealing with intermittent difficulty breathing since Thursday night. Pain is described as stabbing in quality and is rated a 3/10 in severity. Denial of any cough, congestion, nausea, vomiting, fever, or further acute symptoms. Patient has a significant history of CAD s/p PCI to RCA, DM II, HLD, HTN, and ischemic cardiomyopathy with reduced EF 30-35%. Patient admitted for further evaluation. Home Meds Active Scripts Prednisone (Prednisone) 20 Mg Tab, 40 MG PO DAILY for 5 Days, #10 MG Prov:PRIETO THOMAS MD 11/16/24 Azithromycin (ZITHROMAX TABLET) 250 Mg Tb, 250 MG PO DAILY for 5 Days, #5 TAB Prov:PRIETO THOMAS MD 11/16/24 Sacubitril-Valsartan (Entresto 24-26 mg) 1 Tab Tab, 1 TAB PO BID, #60 TAB Prov:EDDIE RICKETTS MD 08/13/23 Clopidogrel Bisulfate (CLOPIDOGREL) 75 Mg Tab, 75 MG PO DAILY, #60 TAB Prov:EDDIE RICKETTS MD 08/13/23 Atorvastatin Calcium (ATORVASTATIN CALCIUM) 20 Mg Tab, 40 MG PO HS, #60 TAB Prov:EDDIE RICKETTS MD 08/13/23 Pantoprazole Sodium Sesquihydr (Pantoprazole Sodium Dr) 40 Mg Tab, 40 MG PO DAILY, #60 TAB Prov:VENANCIO SHARP MD 07/02/23 Albuterol Sulfate (Albuterol Sulfate Hfa) 108 Mcg/Act Aer, 1 PUFF IN Q4HPRN PRN, #1 INH As needed for cough nasal congestion shortness of breath or wheeze Prov:VASU NATION ELECTROMECHANICAL TECHNOLOGIST 06/14/23 Reported Medications Carvedilol (COREG) 3.125 Mg Tab, 6.25 MG PO BID, TAB HOLD FOR SBP 100MMHG OR LESS AND/OR 60MMHG OR LESS. 10/02/24 Potassium Chloride (POTASSIUM CHLORIDE CR) 10 Meq Tb, 8 MEQ PO DAILY, TAB TAKE ONLY TOGETHER WITH LASIX. 10/02/24 Furosemide (Furosemide) 20 Mg Tab, 20 MG PO BID, TAB HOLD FOR SBP 100MMHG OR LESS AND/OR 60MMHG OR LESS. 10/02/24 Spironolactone (Spironolactone) 25 Mg Tab, 0.5 TAB PO DAILY 10/02/24 Aspirin (Aspir-81) 81 Mg Tab, 81 MG PO DAILY, TAB 08/06/15 Past Medical History Cardiac: CAD, CHF, HTN, Hyperlipidemia, Cardiomyopathy (EF 30-35%) Pulmonary: No pertinent Hx Central Nervous System: No pertinent Hx GI: No pertinent Hx Hemotology/Oncology: No pertinent Hx Hepatobiliary: No pertinent Hx Psychiatric: No pertinent Hx Musculoskeletal: No pertinent Hx Rheumotologic: No pertinent Hx Infectious Disease: No peritnent Hx ENT: No pertinent Hx Renal/: No pertinent Hx Endocrine: NIDDM Dermatology: No pertinent Hx Past Surgical History: PTCA Patient Family History: Diabetes mellitus G8 SISTER G8 BROTHER FH: cancer G8 SISTER Malignant neoplasm of breast G8 MOTHER, Smoker: No Hx (Negative) Alocohol: None Drugs: None Lives with: With family Domestic Violence: Neg Review of Systems Constitutional: No symptom reported Ears, Nose, & Throat: No symptom reported Eyes: No symptom reported Pulmonary/Respiratory: Dyspnea Cardiovascular: Chest Pain Gastrointestinal: No symptom reported Genitourinary: No symptom reported Musculoskeletal: No symptom reported Skin: No symptom reported Psychiatric: No symptom reported Endocrine: No symptom reported Hemotologic/Lymphatic: No symptom reported H&P Exam Vital Signs Vital Signs Date Time Temp Pulse Resp B/P (MAP) Pulse Ox O2 Delivery O2 Flow Rate FiO2 02/12/25 00:41 97.8 80 18 137/61 (86) 100 97.8 02/11/25 22:41 Room Air* 0 21 General Appeara: Well developed, Well nourished, Normal Appearance Head Exam: Normal inspection Neck Exam: Normal inspection, Non-tender, Normal alignment Eye Exam: bilateral eye Normal inspection, bilateral eye PERRL, bilateral eye EOMI Ear Exam: bilateral ear Auricle normal Nasal Exam: Normal inspection Mouth: Normal Inspection Pulmonary/Respiratory: Normal inspection, Normal breath sounds, Chest non- tender, Lungs clear Cardiovascular/Chest: Normal inspection, Normal Rhythm, Bradycardia Peripheral Pulses: 2+ dorsalis pedis (R), 2+ dorsalis pedis (L), 2+ Radial (R), 2+ Radial (L) Abdominal Exam: Normal bowel sounds, Soft DISABILITY ADVOCATE Exam: Normal hearing, Normal speech, PERRL Neuro/Mental St: Alert, Oriented Appearance: Appropriate appearance, Appropriate insight Eye contact/ Speech: Cooperative, Good eye contact, Normal speech Thoughts/Psych: Normal thought pattern Skin Exam: Normal inspection, Normal color, Warm/dry SEPSIS Sepsis Screen Date sepsis recognized/suspect: Feb 11, 2025 Time Sepsis recognized/suspect: 2240 Recent Procedure: No On Antibiotic Therapy: No Respiratory Rate >20: No Heart Rate >90: No Temp<36 C (96.8 F) or >38.3 C: No SBP <90 or MAP <65 mmHG: No New Acute Mental Status Change: No Is the patient on CPAP, BIPAP,: No Physician Orders Admit (02/11/25:) Full Code (02/11/25:) * Cardiology Consult (02/11/25:) Echo 2d Mode Cardiac Dop (02/11/25:31) Strict I & O QSHIFT (02/11/25:) Maintain Fluid Restrictions QSHIFT (02/11/25:) Basic Metabolic Panel (02/12/25 05:00) Basic Metabolic Panel (02/13/25 05:00) Nitroglycerin Sublingual (Ntrostat Subli (02/11/25 21:45) Morphine Sulfate Injection (02/11/25 21:45) Stat Ekg For Chest Pain (02/11/25:) Notify Md Of Changes From Base (02/11/25:) Smoke Jumper For 24 Hours (02/11/25:) Emergency Dysrhythmia Protocol (02/11/25:) Rhythm Strips Once Every Shift (02/11/25:) Oxygen By Nasal Cannula (02/11/25:) Communication Order (02/11/25:) Ondansetron Hcl (Zofran) (02/11/25 21:45) Ceftriaxone 1gm/50ml (Rocephin) (02/12/25 10:00) Aspirin Tablet (02/12/25 10:00) Famotidine Tablet (Pepcid Tablet) (02/11/25 22:00) Hydrocodone-Acet 5/325mg Tab ([place] 5/32 (02/11/25 21:45) Acetaminophen Tablet (Tylenol Tablet) (02/11/25 21:45) Hydralazine Injection (Apresoline Inject (02/11/25 21:45) Electrocardigram (02/11/25 21:39) Vital Signs Date Time Temp Pulse Resp B/P (MAP) Pulse Ox O2 Delivery O2 Flow Rate FiO2 02/12/25 00:41 97.8 80 18 137/61 (86) 100 97.8 02/11/25 22:41 98.2 57 20 137/55 (82) 97 98.2 02/11/25 22:41 98.2 57 20 137/55 (82) 97 98.2 02/11/25 22:41 20 97 Room Air* 0 21 02/11/25 22:41 57 20 97 Room Air* 0 21 02/11/25 22:41 98.2 57 20 137/55 (82) 97 98.2 02/11/25 22:41 57 20 97 Room Air 02/11/25 20:05 97.8 76 16 152/61 (91) 98 97.8 02/11/25 17:52 97.6 58 16 110/75 (87) 99 97.6 Medications Medications Dose Ordered Sig/Xenia Route Start Time Stop Time Status Last Admin Dose Admin Famotidine 20 mg BID PO 02/11/25 22:00 02/11/25 22:21 20 MG Furosemide 40 mg ONCE ONCE IV 02/11/25 14:15 02/11/25 14:16 DC 02/11/25 14:34 40 MG Labs/Xrays Labs Test 02/11/25 15:55 02/11/25 12:49 02/11/25 12:23 Range/Units Troponin I High Sensitivity 28 </=34 ng/L White Blood Count 4.4 4.4-10.8 10^3/uL Red Blood Count 4.97 4.0-5.20 10^6/uL Hemoglobin 12.3 12.2-16.2 g/dL Hematocrit 39.5 36.0-46.0 % Mean Corpuscular Volume 79.4 L 80.0-100.0 fL Mean Corpuscular Hemoglobin 24.8 L 28.0-32.0 pg Mean Corpuscular Hemoglobin Concent 31.3 L 32.0-36.0 g/dL Red Cell Distribution Width 14.5 H 11.8-14.3 % Platelet Count 210 140-450 10^3/uL Mean Platelet Volume 10.2 6.9-10.8 fL Neutrophils (%) (Auto) 49.1 37.0-80.0 % Lymphocytes (%) (Auto) 42.4 10.0-50.0 % Monocytes (%) (Auto) 7.2 0.0-12.0 % Eosinophils (%) (Auto) 0.6 0.0-7.0 % Basophils (%) (Auto) 0.7 0.0-2.0 % Neutrophils # (Auto) 2.2 1.6-8.6 10 ^3/uL Lymphocytes # (Auto) 1.9 0.4-5.4 10 ^3/uL Monocytes # (Auto) 0.3 0-1.3 10 ^3/uL Eosinophils # (Auto) 0 0-0.8 10 ^3/uL Basophils # (Auto) 0 0-0.2 10 ^3/uL Nucleated Red Blood Cells 0.1 % Sodium Level 145 136-145 mmol/L Potassium Level 4.4 3.5-5.1 mmol/L Chloride Level 109 H 98-107 mmol/L Carbon Dioxide Level 28 20-31 mmol/L Anion Gap 8 5-15 Blood Urea Nitrogen 21 9-23 mg/dL Creatinine 1.44 H 0.550-1.02 mg/dL Glomerular Filtration Rate Calc 40 >90 mL/min BUN/Creatinine Ratio 14.6 10.0-20.0 Serum Glucose 183 H 74-106 mg/dL Hemoglobin A1c 6.7 H <5.7 % A1C Calcium Level 9.5 8.7-10.4 mg/dL B-Type Natriuretic Peptide 265.61 0-100 pg/mL Triglycerides Level 93 < 150 mg/dL Cholesterol Level 138 < 200 mg/dL LDL Cholesterol 69 < 100 mg/dL HDL Cholesterol 54 40-59 mg/dL Urine Color Yellow Yellow Urine Clarity Turbid H Clear Urine pH 5.5 5.0-9.0 Urine Specific [place] 1.026 1.001-1.035 Urine Protein Negative Negative Urine Ketones Negative Negative Urine Blood Negative Negative /uL Urine Nitrite Negative Negative Urine Bilirubin Negative Negative Urine Urobilinogen Normal Negative mg/dL Urine Leukocyte Esterase Trace Negative /uL Urine RBC 1 0 - 4 /hpf Urine Microscopic WBC 2 0-5 /HPF Urine Squamous Epithelial Cells Few <5 /hpf Urine Bacteria None seen None Seen /hpf Urine Mucus Few None Seen Urine Glucose Normal Normal mg/dL Assessment/Plan Problem List: (1) Chest pain of unknown etiology (2) Bradycardia (3) MELBA (acute kidney injury) Plan This is a 69 yo female with an extensive cardiac history of CAD, CHF, Cardiomyopathy, Hypertension, PTCA, DM, HLD who presents to the hospital with non radiating midsternal chest pain with dyspnea. Patient with heart score of 6 points. 1. Chest pain r/o ACS 2. Bradycardia 3. MELBA 4. CHF without exacerbation 5. DM type 2 6. Cardiomyopathy Plan Admit telemetry Cardiology consultation, 2D echocardiogram, serial troponin levels, ASA Fluid Restriction, strict I&O's Monitor BMP EKG Discussed all above with patient who verbalizes agreement and understanding of care plan. All questions were answered Discussed with supervising MD. Plan discussed with: Patient, Other Code Visit Code Visit Total Time (mins): 45 Additional Comments Additional Comments Additional Comments Patient's chart is reviewed and discussed with the nurse practitioner. Patient is seen evaluated and admitted by ELECTROMECHANICAL TECHNOLOGIST this morning. I agree with her evaluation, documentation, assessment and care plan as outlined. CAROLE SIMON Feb 12, 2025 01:47 VENANCIO SHARP MD Feb 12, 2025 16:37
[2025-02-12] MEDS: ACETAMINOPHEN 325 MG TAB PO PRN (03:49)
[2025-02-12 04:53] LABS: Anion Gap 10 (5-15); Carbon Dioxide 25 mmol/L (20-31); Potassium 4.0 mmol/L (3.5-5.1); Sodium 143 mmol/L (136-145)
[2025-02-12 04:54] LABS: Calcium 10.1 mg/dL (8.7-10.4)
[2025-02-12 04:59] LABS: BUN/Creatinine Ratio 15.5 (10.0-20.0); Blood Urea Nitrogen 22 mg/dL (9-23)
[2025-02-12 05:19] LABS: Chloride 108 mmol/L (98-107); Glucose 122 mg/dL (74-106)
[2025-02-12] MEDS: CARVEDILOL 3.125 MG TAB PO SCH (09:32)
[2025-02-12] MEDS: SACUBITRIL-VALSARTAN 24mg/26mg TAB PO SCH (09:32)
[2025-02-12] MEDS: CLOPIDOGREL BISULFATE 75 MG TAB PO SCH (09:33)
--- NOTE | 2025-02-12 14:40 | DVHINCON2 ---
Date Seen: Feb 12, 2025 Referring Physician Jagjit Reason for Consultation Chest Pain History of Present Illness 61-year-old female with PMH for HTN, ischemic cardiomyopathy EF 30-35%, CAD s/p PCI to RCA 08/12/2023 on Plavix and aspirin presents to the hospital chest pain. Patient endorses chest pain retrosternal as well as right-sided at times pressure at times sharp in nature, no change with exertion or at rest. Intermittent. Patient states is waiting for follow up with the primary to ask for a mammogram. EKG reviewed and negative for acute ischemic changes. Troponin negative. BNP 265. Creatinine trending 1.44, 1.42. EKG reviewed and shows sinus rhythm at 90 beats per minute with ventricular bigeminy PVCs. Past Medical History CAD with stent to RCA HTN Ischemic cardiomyopathy HLD CHF CKD Past Surgical History Angioplasty and stent RCA 08/12/2023 Coronary angiogram with no obstructive CAD noted 10/05/2024 Family History: Diabetes mellitus G8 SISTER G8 BROTHER FH: cancer G8 SISTER Malignant neoplasm of breast G8 MOTHER, Social History Denies alcohol tobacco or illicit drug use. Allergies: Coded Allergies: Penicillins (Verified Adverse Reaction, Severe, 10/18/14) Uncoded Allergies: ADHESIVE (Allergy, Unknown, 12/22/17) Home Meds Active Scripts Prednisone (Prednisone) 20 Mg Tab, 40 MG PO DAILY for 5 Days, #10 MG Prov:PRIETO THOMAS MD 11/16/24 Azithromycin (ZITHROMAX TABLET) 250 Mg Tb, 250 MG PO DAILY for 5 Days, #5 TAB Prov:PRIETO THOMAS MD 11/16/24 Sacubitril-Valsartan (Entresto 24-26 mg) 1 Tab Tab, 1 TAB PO BID, #60 TAB Prov:EDDIE RICKETTS MD 08/13/23 Clopidogrel Bisulfate (CLOPIDOGREL) 75 Mg Tab, 75 MG PO DAILY, #60 TAB Prov:EDDIE RICKETTS MD 08/13/23 Atorvastatin Calcium (ATORVASTATIN CALCIUM) 20 Mg Tab, 40 MG PO HS, #60 TAB Prov:EDDIE RICKETTS MD 08/13/23 Pantoprazole Sodium Sesquihydr (Pantoprazole Sodium Dr) 40 Mg Tab, 40 MG PO DAILY, #60 TAB Prov:VENANCIO SHARP MD 07/02/23 Albuterol Sulfate (Albuterol Sulfate Hfa) 108 Mcg/Act Aer, 1 PUFF IN Q4HPRN PRN, #1 INH As needed for cough nasal congestion shortness of breath or wheeze Prov:VASU NATION WOOL [employer] PELT GRADER 06/14/23 Reported Medications Carvedilol (COREG) 3.125 Mg Tab, 6.25 MG PO BID, TAB HOLD FOR SBP 100MMHG OR LESS AND/OR 60MMHG OR LESS. 10/02/24 Potassium Chloride (POTASSIUM CHLORIDE CR) 10 Meq Tb, 8 MEQ PO DAILY, TAB TAKE ONLY TOGETHER WITH LASIX. 10/02/24 Furosemide (Furosemide) 20 Mg Tab, 20 MG PO BID, TAB HOLD FOR SBP 100MMHG OR LESS AND/OR 60MMHG OR LESS. 10/02/24 Spironolactone (Spironolactone) 25 Mg Tab, 0.5 TAB PO DAILY 10/02/24 Aspirin (Aspir-81) 81 Mg Tab, 81 MG PO DAILY, TAB 08/06/15 Current Medications Current Medications Medications (Trade) Dose Ordered Sig/Xenia Route PRN Reason Start Time Stop Time Status Last Admin Nitroglycerin (Ntrostat Sublingual) 0.4 mg Q5MINP PRN SL FOR CHEST PAIN 02/11/25 21:45 Morphine Sulfate 2 mg Q30M PRN IV FOR CHEST PAIN 02/11/25 21:45 Ondansetron HCl (Zofran) 4 mg Q6HPRN PRN IV NAUSEA / VOMITING 02/11/25 21:45 Ceftriaxone Sodium 50 ml @ 100 mls/hr DAILY IV 02/12/25 10:00 02/12/25 09:31 Aspirin 81 mg DAILY PO 02/12/25 10:00 02/12/25 09:31 Famotidine (Pepcid Tablet) 20 mg BID PO 02/11/25 22:00 02/12/25 09:32 Acetaminophen/ Hydrocodone Bitart ([place] 5/325MG Tab) 1 tab Q6HPRN PRN PO PAIN SCALE 4 THRU 6 02/11/25 21:45 Acetaminophen (Tylenol Tablet) 650 mg Q6HPRN PRN PO PAIN SCALE 1-3 OR TEMP>100.4 02/11/25 21:45 02/12/25 03:49 Hydralazine HCl (Apresoline Injection) 10 mg Q6HP PRN IV SBP>160 02/11/25 21:45 Carvedilol (Coreg Tablet) 6.25 mg BID PO 02/12/25 10:00 02/12/25 09:32 Clopidogrel Bisulfate (Plavix) 75 mg DAILY PO 02/12/25 10:00 02/12/25 09:33 Sacubitril/ Valsartan (Entresto 24-26 Mg tab) 1 tab BID PO 02/12/25 10:00 02/12/25 09:32 Review of Systems Constitutional: No: Fever, Chills, Sweats, Weakness, Malaise, Other Eyes: No: Pain, Vision change, Conjunctivae inflammation, Eyelid inflammation, Other, Redness ENT: No: Ear pain, Ear discharge, Nose pain, Nose discharge, Nose congestion, Mouth pain, Mouth swelling, Throat pain, Throat swelling, Other Respiratory: No: Cough, Dry, Shortness of breath, SOB with exertion, Wheezing, Hemoptysis, Pleuritic Pain, Sputum, Wheezing, Other Cardiovascular: ; No: Chest Pain Palpitations, Orthopnea, Paroxysmal Noc. Dyspnea, Edema, Lt Headedness, Other Gastrointestinal: No: Nausea, Vomiting, Abdominal Pain, Diarrhea, Constipation, Melena, Hematochezia, Other Genitourinary: No Dysuria, No Frequency, No Incontinence, No Hematuria, No Rete ntion, No Other Musculoskeletal: neck pain; No: other, shoulder pain, arm pain, back pain, hand pain, leg pain, foot pain Skin: No: Rash, Lesions, Jaundice, Bruising, Other Neurological: Other (Dizziness, headache.); No: Weakness, Numbness, Incoordination, Change in speech, Confusion, Seizures Vital Signs Vital Signs Date Time Temp Pulse Resp B/P (MAP) Pulse Ox O2 Delivery O2 Flow Rate FiO2 02/12/25 12:52 98.0 61 16 128/80 (96) 98 98.0 02/11/25 22:41 Room Air* 0 21 Physical Exam General appearance: Patient is well-developed, well-nourished, in no acute distress. HEENT: Exam shows: Normocephalic, atraumatic, PERRLA, EOMI Neck: Supple, no bruits Chest: Equal chest excursion bilaterally. Breath sounds normal-no rales or wheezes. Heart: Rhythm: Regular rate; bigeminy PVC no murmur or gallop Abdomen: Exam shows: Soft, nontender, nondistended Musculoskeletal: No clubbing, no cyanosis, no lower extremity edema Dermatology: Skin warm, moist. Neurological: Exam shows: Alert and oriented x4, normal speech Available prior records, labs, EKG, rhythm strips reviewed and interpreted Labs/Diagnostic Data Labs Test 02/12/25 03:18 02/11/25 15:55 02/11/25 12:49 02/11/25 12:23 Range/Units Sodium Level 143 136-145 mmol/L Potassium Level 4.0 3.5-5.1 mmol/L Chloride Level 108 H 98-107 mmol/L Carbon Dioxide Level 25 20-31 mmol/L Anion Gap 10 5-15 Blood Urea Nitrogen 22 9-23 mg/dL Creatinine 1.42 H 0.550-1.02 mg/dL Glomerular Filtration Rate Calc 40 >90 mL/min BUN/Creatinine Ratio 15.5 10.0-20.0 Serum Glucose 122 H 74-106 mg/dL Calcium Level 10.1 8.7-10.4 mg/dL Troponin I High Sensitivity 28 </=34 ng/L White Blood Count 4.4 4.4-10.8 10^3/uL Red Blood Count 4.97 4.0-5.20 10^6/uL Hemoglobin 12.3 12.2-16.2 g/dL Hematocrit 39.5 36.0-46.0 % Mean Corpuscular Volume 79.4 L 80.0-100.0 fL Mean Corpuscular Hemoglobin 24.8 L 28.0-32.0 pg Mean Corpuscular Hemoglobin Concent 31.3 L 32.0-36.0 g/dL Red Cell Distribution Width 14.5 H 11.8-14.3 % Platelet Count 210 140-450 10^3/uL Mean Platelet Volume 10.2 6.9-10.8 fL Neutrophils (%) (Auto) 49.1 37.0-80.0 % Lymphocytes (%) (Auto) 42.4 10.0-50.0 % Monocytes (%) (Auto) 7.2 0.0-12.0 % Eosinophils (%) (Auto) 0.6 0.0-7.0 % Basophils (%) (Auto) 0.7 0.0-2.0 % Neutrophils # (Auto) 2.2 1.6-8.6 10 ^3/uL Lymphocytes # (Auto) 1.9 0.4-5.4 10 ^3/uL Monocytes # (Auto) 0.3 0-1.3 10 ^3/uL Eosinophils # (Auto) 0 0-0.8 10 ^3/uL Basophils # (Auto) 0 0-0.2 10 ^3/uL Nucleated Red Blood Cells 0.1 % Hemoglobin A1c 6.7 H <5.7 % A1C B-Type Natriuretic Peptide 265.61 0-100 pg/mL Triglycerides Level 93 < 150 mg/dL Cholesterol Level 138 < 200 mg/dL LDL Cholesterol 69 < 100 mg/dL HDL Cholesterol 54 40-59 mg/dL Urine Color Yellow Yellow Urine Clarity Turbid H Clear Urine pH 5.5 5.0-9.0 Urine Specific [place] 1.026 1.001-1.035 Urine Protein Negative Negative Urine Ketones Negative Negative Urine Blood Negative Negative /uL Urine Nitrite Negative Negative Urine Bilirubin Negative Negative Urine Urobilinogen Normal Negative mg/dL Urine Leukocyte Esterase Trace Negative /uL Urine RBC 1 0 - 4 /hpf Urine Microscopic WBC 2 0-5 /HPF Urine Squamous Epithelial Cells Few <5 /hpf Urine Bacteria None seen None Seen /hpf Urine Mucus Few None Seen Urine Glucose Normal Normal mg/dL Assessment * Chest Pain - atypical. Troponins negative. EKG negative for acute ischemic changes. Patient with recent coronary angiogram 09/2024 showing patent stent, no obstructive CAD. Continue medical management. No further cardiac intervention indicated at this time given no significant change on echo. Patient has upcoming cardiology appointment in his month. Continue outpatient monitoring. * Chronic HFrEF - does not seem overloaded, BNP 265. CXR negative for congestion/edema. Patient's breathing stable on room air. Continue monitoring fluid volume status. * Ischemic Cardiomyopathy - continue on Coreg and Entresto. Diuresis held in s etting of mild MELBA, continue on DC with spironolactone daily Lasix p.r.n.. * HTN - stable, continue current regimen. * CAD s/p STENT to rca 2023 - continue aspirin and statin Plavix * Bigeminy PVC - continue on Coreg, recommend outpatient event monitoring to evaluate PVC burden. Case Discussed with Dr Mac. Atypical chest pain, troponins negative. Patient with recent coronary angiogram 09/2024 with patent stent no obstructive CAD. Continue medical management. Continue with outpatient cardiology follow up. Recommend event monitoring for PVC burden. There is no further cardiac work-up indicated at this time given no significant change on echo. Thank you for allowing us to participate in this patient's care. Critical care, time spent: 40 minutes This medical document was created using an electronic medical record system with voice recognition software and computerized dictation system. Although this document has been carefully reviewed, there might still be some phonetic and typographical errors. Occasional wrong-word or ``sound-alike substitutions may have occurred due to the inherent limitations of voice recognition software. These areas are purely typographical due to imperfections of the software programs and do not reflect any compromise in the patient's medical care. Please read the chart carefully and recognize, using context, where these substitutions have occurred. Thank you for allowing me to participate in the management of this patient. The treatment plan was discussed with and agreed upon by patient/family including requesting consultants and ordering of imaging/procedures. Plan discussed with: Patient NYHA Physical activity limitations: Class2(Slight)fatigue,sob Date of Service: Feb 12, 2025 Billing Provider: STEFANIE LABOY Cardiology Common Codes: 16085-GTPDULS INP/OBS CARE (High), [id number] CARE 30-74 MIN STEFANIE LABOY Feb 12, 2025 14:40
[2025-02-12] MEDS: SUCRALFATE 1 GM TAB PO SCH (17:00)
[2025-02-12] MEDS: PANTOPRAZOLE 40 MG TAB PO SCH (17:48)
[2025-02-13] VITALS (7 sets, daily range): BP systolic 109–144; BP diastolic 51–85; PULSE 45–90; RESP 14–20; TEMP 97.5–98.2; O2SAT 98–100
[2025-02-13 06:33] LABS: Anion Gap 9 (5-15); Carbon Dioxide 24 mmol/L (20-31); Potassium 3.8 mmol/L (3.5-5.1); Sodium 142 mmol/L (136-145)
[2025-02-13 06:34] LABS: Calcium 9.0 mg/dL (8.7-10.4)
[2025-02-13 06:37] LABS: Chloride 109 mmol/L (98-107)
[2025-02-13 06:39] LABS: BUN/Creatinine Ratio 13.8 (10.0-20.0); Blood Urea Nitrogen 17 mg/dL (9-23)
[2025-02-13 06:42] LABS: Glucose 114 mg/dL (74-106)
[2025-02-13] MEDS ORDERED: CARV-214 PO (15:48)
[2025-02-13] MEDS ORDERED: SACU1TAB PO (15:48)
[2025-02-13] MEDS ORDERED: FURO20TA3 PO (15:48)
--- NOTE | 2025-02-13 15:52 | DVHDS2 ---
Discharge Summary Date of Admission Feb 11, 2025 at 21:31 Date of Discharge: Feb 13, 2025 Labs/Diagnostic Data: Laboratory Results Test 02/13/25 04:53 02/11/25 15:55 02/11/25 12:49 02/11/25 12:23 Sodium Level 142 mmol/L (136-145) Potassium Level 3.8 mmol/L (3.5-5.1) Chloride Level 109 mmol/L (98-107) Carbon Dioxide Level 24 mmol/L (20-31) Anion Gap 9 (5-15) Blood Urea Nitrogen 17 mg/dL (9-23) Creatinine 1.23 mg/dL (0.550-1.02) Glomerular Filtration Rate Calc 48 mL/min (>90) BUN/Creatinine Ratio 13.8 (10.0-20.0) Serum Glucose 114 mg/dL (74-106) Calcium Level 9.0 mg/dL (8.7-10.4) Troponin I High Sensitivity 28 ng/L (</=34) White Blood Count 4.4 10^3/uL (4.4-10.8) Red Blood Count 4.97 10^6/uL (4.0-5.20) Hemoglobin 12.3 g/dL (12.2-16.2) Hematocrit 39.5 % (36.0-46.0) Mean Corpuscular Volume 79.4 fL (80.0-100.0) Mean Corpuscular Hemoglobin 24.8 pg (28.0-32.0) Mean Corpuscular Hemoglobin Concent 31.3 g/dL (32.0-36.0) Red Cell Distribution Width 14.5 % (11.8-14.3) Platelet Count 210 10^3/uL (140-450) Mean Platelet Volume 10.2 fL (6.9-10.8) Neutrophils (%) (Auto) 49.1 % (37.0-80.0) Lymphocytes (%) (Auto) 42.4 % (10.0-50.0) Monocytes (%) (Auto) 7.2 % (0.0-12.0) Eosinophils (%) (Auto) 0.6 % (0.0-7.0) Basophils (%) (Auto) 0.7 % (0.0-2.0) Neutrophils # (Auto) 2.2 10 ^3/uL (1.6-8.6) Lymphocytes # (Auto) 1.9 10 ^3/uL (0.4-5.4) Monocytes # (Auto) 0.3 10 ^3/uL (0-1.3) Eosinophils # (Auto) 0 10 ^3/uL (0-0.8) Basophils # (Auto) 0 10 ^3/uL (0-0.2) Nucleated Red Blood Cells 0.1 % Hemoglobin A1c 6.7 % A1C (<5.7) B-Type Natriuretic Peptide 265.61 pg/mL (0-100) Triglycerides Level 93 mg/dL (< 150) Cholesterol Level 138 mg/dL (< 200) LDL Cholesterol 69 mg/dL (< 100) HDL Cholesterol 54 mg/dL (40-59) Urine Color Yellow (Yellow) Urine Clarity Turbid (Clear) Urine pH 5.5 (5.0-9.0) Urine Specific Leonardo 1.026 (1.001-1.035) Urine Protein Negative (Negative) Urine Ketones Negative (Negative) Urine Blood Negative /uL (Negative) Urine Nitrite Negative (Negative) Urine Bilirubin Negative (Negative) Urine Urobilinogen Normal mg/dL (Negative) Urine Leukocyte Esterase Trace /uL (Negative) Urine RBC 1 /hpf (0 - 4) Urine Microscopic WBC 2 /HPF (0-5) Urine Squamous Epithelial Cells Few /hpf (<5) Urine Bacteria None seen /hpf (None Seen) Urine Mucus Few (None Seen) Urine Glucose Normal mg/dL (Normal) Other Laboratory Tests 02/13/25 04:53 02/11/25 12:49 Brief Hx & Hospital Course: 61-year-old female with PMH for HTN, ischemic cardiomyopathy EF 30-35%, CAD s/p PCI to RCA 08/12/2023 on Plavix and aspirin presents to the hospital chest pain. Patient endorses chest pain retrosternal as well as right-sided at times pressure at times sharp in nature, no change with exertion or at rest. Intermittent. Patient states is waiting for follow up with the primary to ask for a mammogram. EKG reviewed and negative for acute ischemic changes. Troponin negative. BNP 265. Creatinine trending 1.44, 1.42. 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 Patient underwent consulted regarding heart failure. Advised to limit oral intake and low-salt diet. Patient is advised to check her weight daily and if she gains more than 2-3 lb to take Lasix 10 she loses her rate. Otherwise her blood pressure medications have been adjusted. She remained clinically stable. Oxygenating and Ativan roommate. No other acute problems identified. She is feeling better back to normal baseline status. Therefore it is fairly significant safe to discharge home. I have talked with the patient at length at bedside regarding her heart failure, hospital diagnosis, treatment she received, discharge medications, discharge instructions follow up plan of care. She has been present ascending of these and agree with care plan as outlined. Consults/Reason for consult Assessment * Chest Pain - atypical. Troponins negative. EKG negative for acute ischemic changes. Patient with recent coronary angiogram 09/2024 showing patent stent, no obstructive CAD. Continue medical management. No further cardiac intervention indicated at this time given no significant change on echo. Patient has upcoming cardiology appointment in his month. Continue outpatient monitoring. * Chronic HFrEF - does not seem overloaded, BNP 265. CXR negative for congestion/edema. Patient's breathing stable on room air. Continue monitoring fluid volume status. * Ischemic Cardiomyopathy - continue on Coreg and Entresto. Diuresis held in setting of mild MELBA, continue on DC with spironolactone daily Lasix p.r.n.. * HTN - stable, continue current regimen. * CAD s/p STENT to rca 2023 - continue aspirin and statin Plavix * Bigeminy PVC - continue on Coreg, recommend outpatient event monitoring to evaluate PVC burden. Case Discussed with Dr Mac. Atypical chest pain, troponins negative. Patient with recent coronary angiogram 09/2024 with patent stent no obstructive CAD. Continue medical management. Continue with outpatient cardiology follow up. Recommend event monitoring for PVC burden. There is no further cardiac work-up indicated at this time given no significant change on echo. Thank you for allowing us to participate in this patient's care. Critical care, time spent: 40 minutes This medical document was created using an electronic medical record system with voice recognition software and computerized dictation system. Although this document has been carefully reviewed, there might still be some phonetic and typographical errors. Occasional wrong-word or ``sound-alike substitutions may have occurred due to the inherent limitations of voice recognition software. These areas are purely typographical due to imperfections of the software programs and do not reflect any compromise in the patient's medical care. Please read the chart carefully and recognize, using context, where these substitutions have occurred. Thank you for allowing me to participate in the management of this patient. The treatment plan was discussed with and agreed upon by patient/family including requesting consultants and ordering of imaging/procedures. Plan discussed with: Patient NYHA 2 Physical activity limitations: Class2(Slight)fatigue,sob Date of Service: Feb 12, 2025 Billing Provider: STEFANIE LABOY Cardiology Common Codes: 07429-[id number] INP/OBS CARE (High), 21763-[id number] CARE 30-74 MIN [facility] Feb 12, 2025 14:40 Condition at Discharge: Stable Final Diagnosis/Problems List Chest Pain - atypical. Patient with recent coronary angiogram 09/2024 showing patent stent, no obstructive CAD. Continue medical management. Chronic HFrEF - Ischemic Cardiomyopathy - continue on Coreg and Entresto. HTN - stable, continue current regimen. 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 Scheduled Aspirin (Aspir-81), 81 MG PO DAILY, (Reported) Atorvastatin Calcium (Atorvastatin Calcium), 40 MG PO HS Azithromycin (Zithromax Tablet), 250 MG PO DAILY Carvedilol (Coreg), 6.25 MG PO BID Clopidogrel Bisulfate (Clopidogrel), 75 MG PO DAILY Pantoprazole Sodium Sesquihydr (Pantoprazole Sodium Dr), 40 MG PO DAILY Potassium Chloride (Potassium Chloride Cr), 8 MEQ PO DAILY, (Reported) Prednisone (Prednisone), 40 MG PO DAILY Sacubitril-Valsartan (Entresto 24-26 mg), 1 TAB PO BID Spironolactone (Spironolactone), 0.5 TAB PO DAILY, (Reported) Scheduled PRN Albuterol Sulfate (Albuterol Sulfate Hfa), 1 PUFF IN Q4HPRN PRN Furosemide (Furosemide), 40 MG PO DAILYP PRN Discharge Statement: "Patient was advised to return to the ER or call 911 if any headaches, dizziness, shortness of breath, chest pain, abdominal pain, bleeding, fevers, or worsening of medical condition. Patient was counseled about treatment plan, medications, possible side effects, patientverbalized understanding. All questions were answered to the best of my ability. This discharge took greater then 30 minutes in planning, reviewing documentation, counseling the patient, and discussing with other team members." ASSESSMENT ASSESSMENT Assessment Chest Pain - atypical. Patient with recent coronary angiogram 09/2024 showing patent stent, no obstructive CAD. Continue medical management. Chronic HFrEF - Ischemic Cardiomyopathy - continue on Coreg and Entresto. HTN - stable, continue current regimen. CAD s/p STENT to rca 2023 - continue aspirin and statin Plavix Bigeminy PVC - continue on LILA Centeno SREEKANTH MD Feb 13, 2025 15:52
== END 2025-02-13 19:25 | disposition home or self-care (01) | DRG 206 ==
LOC: ER 11:46 → OVERFLOW 21:31 → TELE-WESTW 02-12 18:49
PROVIDERS: ADMIT Nurse Practitioner Family; ATTEND Nurse Practitioner Family
DX: M94.0 Chondrocostal junction syndrome [Tietze] (principal); I50.22 Chronic systolic (congestive) heart failure; N17.9 Acute kidney failure, unspecified; I13.0 Hypertensive heart and chronic kidney disease with heart failure and stage 1 through stage 4 chronic kidney disease, or unspecified chronic kidney disease; I25.10 Atherosclerotic heart disease of native coronary artery without angina pectoris; I25.5 Ischemic cardiomyopathy; N18.9 Chronic kidney disease, unspecified; E11.22 Type 2 diabetes mellitus with diabetic chronic kidney disease; E66.9 Obesity, unspecified; E78.5 Hyperlipidemia, unspecified; I49.3 Ventricular premature depolarization; Z88.0 Allergy status to penicillin; Z79.2 Long term (current) use of antibiotics; Z79.899 Other long term (current) drug therapy; Z79.82 Long term (current) use of aspirin; Z83.3 Family history of diabetes mellitus; Z80.3 Family history of malignant neoplasm of breast; Z79.84 Long term (current) use of oral hypoglycemic drugs; Z95.5 Presence of coronary angioplasty implant and graft; Z68.29 Body mass index [BMI] 29.0-29.9, adult; R00.8 Other abnormalities of heart beat
CPT/HCPCS: 36415; 71045; 80048; 80061; 81001; 83036; 83880; 84484; 85025; 93005; 96374; 99291; 99292; G0378

== ENCOUNTER 2025-03-29 08:06 | Day surgery (SDC) | payer OTHER ==
[~2025-03-29] VITALS: Ht 162.6 cm; Wt 76.7 kg
[2025-03-29] VITALS (8 sets, daily range): BP systolic 96–135; BP diastolic 51–78; PULSE 56–80; RESP 11–17; O2SAT 99–100
[~2025-03-29 08:06] MED LIST changes: -AZIT-185 PO; -PRED20TA2 PO; -SACU1TAB PO; +SACU1TAB7 PO; +VERI2.5T PO
[2025-03-29] MEDS ORDERED: VERAPAMIL 2.5MG/ML INJ 2ML VIAL IV ONE (10:04)
[2025-03-29] MEDS ORDERED: fentaNYL CITRATE 100 MCG/2 ML VL ONE (10:04)
[2025-03-29] MEDS ORDERED: ANGIOMAX 250 MG VIAL IV ONE (10:04)
[2025-03-29] MEDS ORDERED: HEPARIN SODIUM (PORCINE) 5000 UNITS/ML 1ML VIAL ONE (10:04)
[2025-03-29] MEDS ORDERED: SODIUM CHL 0.9% 0 ML ONE (10:05)
[2025-03-29] MEDS ORDERED: LIDOCAINE 2%HCL (LOCAL ANESTH.) INJ 20ML MDV ONE (10:05)
[2025-03-29] MEDS ORDERED: MIDAZOLAM HCL 2MG/2ML 2ml VIAL (1mg/ml) ONE (10:05)
[2025-03-29] MEDS ORDERED: HEPARIN IN NS 1000Units/500mL 1,500 ML ONE (10:08)
[2025-03-29] MEDS ORDERED: IODIXANOL 320MG/ML 100ML BTL IV ONE (10:08)
--- NOTE | 2025-03-29 12:11 | DVHOP2 ---
Operative Report - 2 Report Details Date: 03/29/25 Preop Diagnosis: Pulmonary hypertension Postop Diagnosis: Cardiomyopathy Surgeon: Kofi Mac MD Anesthesiologist: Conscious sedation Anesthesia: Mac, Local Consent: The patient was informed of the risks and benefits of the procedure. These include but are not limited to complications of anesthesia, postoperative infection, incomplete relief of symptoms, recurrence of symptoms, damage to blood vessels, nerves and tendons, deep venous thrombosis, pulmonary embolism and possible need for repeat surgery in the future. Complications: No complications Findings: Cardiomyopathy Indications for Surgery: Congestive heart failure Name of Procedure Performed Right and left heart catheterization. Bilateral cine coronary angiography. Left ventriculography. Procedure Details Procedure Details: Prior local anesthesia with 2% lidocaine to the right wrist and full informed consent obtained patient was prepped and draped in usual fashion followed by placement of a six [place] sheath into the antecubital vein followed by placement of a radial sheath into the right radial artery. We passed a Afton-Renato catheter into the right atrium right ventricle pulmonary artery capillary wedge pressure positions where pressures were obtained and recorded. Cardiac outputs were determined by the thermodilution technique in triplicate. Pullback pressures were also obtained. Through the arterial sheath we placed a [place] catheter into the left ventricle and obtained simultaneous pressures. Pressures were obtained in the LV and AO simultaneously. Pullback was also performed. Ventriculography was also performed. No complications Hemodynamics: Right atrial pressure was eight with a right ventricular pressure 31 over 14. Pulmonary pressure of 31 over 15 with a mean of 21. Aortic blood pressure was 130 over 49 with a mean of 81. Left ventricular end-diastolic pressure was 12. There was a minimal gradient across the aortic valve on pull back about 7-8 mmHg. Cardiac output by thermodilution technique was 2.37. The cardiac index was 1.3 L/min. Coronary anatomy: The RCA is a large dominant vessel it is normal in its proximal mid and distal segments. The PDA and posterolateral branches are normal. Left main is large and normal. Left anterior descending is a large vessel it is normal in its proximal mid and distal segments. The the diagonals and septals are normal. The circumflex is large with two marginals free of significant disease. Ventriculography in the MA projection shows an EF of 25%. It is an enlarged left ventricle and it is severely hypokinetic. Impression: Normal left ventricular end-diastolic pressure at rest with significantly decreased left ventricular ejection fraction. No significant CAD. Recommendations: Medical therapy is warranted continue with risk factor modification. Condition Good Disposition Home Date of Service: Mar 29, 2025 Billing Provider: KOFI MAC Sr., MD Cardiology Common Codes: [id number] INP/OBS CARE (High) Cardiology Procedure Codes: 91023-NVHE HEART CATH W/INTRA INJ, 65353-O/R & L HEART CATH FOR LVG KOFI MAC Sr., MD Mar 29, 2025 12:11
== END 2025-03-29 14:46 | disposition home or self-care (01) ==
LOC: CATH 08:06
PROVIDERS: ATTEND Internal Medicine
DX: I34.0 Nonrheumatic mitral (valve) insufficiency (principal); I25.5 Ischemic cardiomyopathy; E78.5 Hyperlipidemia, unspecified; I13.0 Hypertensive heart and chronic kidney disease with heart failure and stage 1 through stage 4 chronic kidney disease, or unspecified chronic kidney disease; E11.22 Type 2 diabetes mellitus with diabetic chronic kidney disease; N18.30 Chronic kidney disease, stage 3 unspecified; I50.42 Chronic combined systolic (congestive) and diastolic (congestive) heart failure; Z82.49 Family history of ischemic heart disease and other diseases of the circulatory system; Z88.0 Allergy status to penicillin; Z88.8 Allergy status to other drugs, medicaments and biological substances; Z95.5 Presence of coronary angioplasty implant and graft
CPT/HCPCS: 93460; C1769; C1887; C1894; J1644; J2250; J3010; J7030; Q9967; 99152; 99153